=== PATIENT | male | born 1940 | race Caucasian/White ===

== ENCOUNTER 2017-01-29 13:53 | Emergency (ER) | payer MEDICARE, MEDICAID ==
[2017-01-29 14:10] VITALS: BP 128/64
--- NOTE | 2017-01-29 14:14 | EDM.PDOC ---
ED HISTORY OF PRESENT ILLNESS - General Chief Complaint: Respiratory Problem Stated Complaint: SOB Time Seen by Provider: 01/29/17 14:04 History Limitations: Reports: No limitations - History of Present Illness INITIAL COMMENTS - FREE TEXT/NARRATIVE: Pt states that he has had coughing and generalized body aches for the past 10 days. States that he is having a hard time getting the phlegm up Symptom Onset Date: 01/19/17 Timing/Duration: Reports: Getting worse Severity: moderate Location, General: Reports: chest Quality: Reports: Ache Improves with: Reports: None Worsens with: Reports: Breathing, Movement Associated Symptoms (General): Reports: cough w sputum, loss of appetite - Related Data Allergies/ADRs: Allergies Allergy/AdvReac Type Severity Reaction Status Date / Time No Known Allergies Allergy Verified 06/19/16 20:56 Home Meds: Home Meds Acetaminophen [Tylenol] 650 mg PO Q6H PRN 06/10/14 [History] Aspirin [Ecotrin] 81 mg PO DAILY 06/10/14 [History] Calcium Citrate [Calcitrate (190 MG Calcium)] 1,900 mg PO DAILY 06/22/16 [ History] Cholecalciferol (Vitamin D3) [Vitamin D3] 4,000 units PO DAILY 06/22/16 [History ] Gabapentin [Neurontin] 100 mg PO TID 06/22/16 [History] Polyethylene Glycol 3350 [MiraLAX] 17 gm PO DAILY 06/22/16 [History] Multivitamin with Minerals [Multiple Vitamin] 1 tab PO BEDTIME 06/25/16 [History ] Simvastatin [Zocor] 20 mg PO BEDTIME 06/25/16 [History] Thiamine [Vitamin B-1] 100 mg PO BEDTIME #30 tablet 06/25/16 [Rx] Acetaminophen/HYDROcodone [[place] 325-5 MG] 1 tab PO Q6H PRN #20 tablet 07/14/16 [Rx] Past Medical History HEENT History: Reports: Hard of hearing, Impaired vision Cardiovascular History: Reports: High cholesterol, Hypertension Respiratory History: Reports: Pneumonia, recurrent Gastrointestinal History: Reports: Fecal incontinence Genitourinary History: Reports: Urinary incontinence Musculoskeletal History: Reports: Amputation Other Musculoskeletal History: 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 - Infectious Disease History Infectious Disease History: Reports: Chicken pox, Measles, Mumps, Shingles - Past Surgical History Musculoskeletal Surgical History: Reports: Other (see below) Other Musculoskeletal Surgeries/Procedures:: left hip and ankle surgery Social & Family History - Family History Family Medical History: Noncontributory - Tobacco Use Smoking Status *Q: Heavy Tobacco Smoker Years of Tobacco use: 60 Packs/Tins Daily: 1.2 Used Tobacco, but Quit: No Second Hand Smoke Exposure: Yes - Alcohol Use Days Per Week of Alcohol Use: 7 Number of Drinks Per Day: 2 Total Drinks Per Week: 14 - Recreational Drug Use Recreational Drug Use: No ED ROS GENERAL - Review of Systems Review Of Systems: See Below Constitutional: Reports: malaise Respiratory: Reports: Shortness of Breath, Cough ED EXAM, GENERAL - Physical Exam Exam: See Below Exam Limited By: No limitations General Appearance: alert, WD/WN, no apparent distress Eye Exam: bilateral eye: PERRL Nose: no blood, clear rhinorrhea, other (enlarged turbinated bilaterally) Throat/Mouth: Normal inspection, Normal lips, Normal teeth, Normal gums, Normal voice, No airway compromise, Other (throat erythema) Head: atraumatic, normocephalic Neck: normal inspection, supple, non-tender, full range of motion Respiratory/Chest: lungs clear, normal breath sounds, no accessory muscle use, chest non-tender, decreased breath sounds, other (labored breathing) Cardiovascular: normal peripheral pulses, regular rate, rhythm, no edema, no gallop, no JVD, no murmur, no rub Neurological: alert, oriented, CN II-XII intact, normal cognition, normal gait, normal reflexes, no motor/sensory deficits Course - Vital Signs Last Recorded V/S: Last Vital Signs Temp 96.3 F 01/29/17 14:09 Pulse 96 01/29/17 14:34 Resp 22 H 01/29/17 14:09 BP 128/64 01/29/17 14:09 Pulse Ox 94 L 01/29/17 14:34 - Orders/Labs/Meds Orders: Active Orders 24 hr Category Date Time Status RT Aerosol Therapy [RC] ASDIRECTED Care 01/29/17 14:24 Active Meds: Medications Discontinued Medications Generic Name Dose Route Start Last Admin Trade Name Freq PRN Reason Stop Dose Admin Albuterol/Ipratropium 3 ml 01/29/17 14:23 01/29/17 14:33 Duoneb 3.0-0.5 Mg/3 Ml NEB 01/29/17 14:24 3 ml ONETIME ONE Administration Amoxicillin 500 mg 01/29/17 15:20 01/29/17 15:29 Amoxil PO 01/29/17 15:21 500 mg ONETIME ONE Administration - Re-Assessments/Exams Free Text/Narrative Re-Assessment/Exam: 01/29/17 15:32 Strep positive and CXR reveals reactive airway disease, will start amoxicillin and send home with albuterol and cough suppressants. Departure - Departure Time of Disposition: 15:32 Disposition: Home, Self-Care 01 Preliminary Cause of *Q: sepsis & multi system organ failure Condition: good Clinical Impression: Strep pharyngitis, Bronchitis Instructions: Acute Bronchitis, [id number], Strep Throat Forms: ED Department Discharge Additional Instructions: Take medication as prescribed. Stop taking if any adverse effects occur. Follow up at [place] [facility] or [facility] as needed - My Orders Last 24 Hours: My Active Orders 01/29/17 14:24 RT Aerosol Therapy [RC] ASDIRECTED - Assessment/Plan Last 24 Hours: My Active Orders 01/29/17 14:24 RT Aerosol Therapy [RC] ASDIRECTED
[2017-01-29] MEDS ORDERED: Albuterol/Ipratropium 3.0-0.5 MG/3 ML Neb Soln NEB ONE (14:23)
--- NOTE | 2017-01-29 15:15 | CR ---
Clinical history: 76-year-old male shortness of breath. Interpretation: Abnormal. 1. Insufficiency fracture with collapse mid thoracic vertebral body. 2. Patchy nonconsolidative infrahilar infiltrates involving the anterior segments, both lower lobes. 3. Similar subtle asymmetric density axillary segment right upper lobe. 4. Peribronchial "cuffing" and generalized air trapping typical reactive airway disease. No lung mas s, hilar lymphadenopathy or other focal lobar infiltrate/atelectasis. 5. Normal cardiac silhouette without cephalization of vascular flow, signs of alveolar edema or depe ndent pleural effusion. Left-sided aortic arch. 6. No pneumothorax.
[2017-01-29] MEDS ORDERED: Amoxicillin 500 MG Cap PO ONE (15:20)
== END 2017-01-29 15:43 | disposition home or self-care (01) ==
LOC: DL.ED 13:53
DX: J40 Bronchitis, not specified as acute or chronic (principal); J02.0 Streptococcal pharyngitis; E78.00 Pure hypercholesterolemia, unspecified; I10 Essential (primary) hypertension; F17.210 Nicotine dependence, cigarettes, uncomplicated; Z87.01 Personal history of pneumonia (recurrent); Z79.82 Long term (current) use of aspirin; Z79.899 Other long term (current) drug therapy
CPT/HCPCS: 71020; 87430; 87804; 94640; 99285; A9270; 99284

== ENCOUNTER 2020-06-08 20:16 | Observation (INO) | payer OTHER, MEDICARE, MEDICAID ==
--- NOTE | 2020-06-08 20:56 | EDM.PDOC ---
ED HPI GENERAL MEDICAL PROBLEM - General Chief Complaint: General Stated Complaint: AMBULANCE Time Seen by Provider: 06/08/20 20:45 Source of Information: Reports: Patient History Limitations: Reports: No Limitations - History of Present Illness INITIAL COMMENTS - FREE TEXT/NARRATIVE: This 79 yo male patient was brought to the ED by [facility] due to left hip and pelvic pain. The patient reports he fell on Tuesday (06/04/20) onto his left hip on a tile floor. The patient reports he was able to get into his recliner after the fall, but has not been able to move since that time. The patient reports continued pain with movement in his left hip and left groin. The patient reports no loss of consciousness before, during or after the fall. The patient denies hitting his head during the incident. Onset Date: 06/04/20 Duration: Constant Location: Reports: Pelvis, Lower Extremity, Left Quality: Reports: Ache Severity: Moderate Improves with: Reports: None Worsens with: Reports: None Context: Reports: Trauma (ground level fall) Associated Symptoms: Reports: No Other Symptoms Left Hip Pain Score (Numeric/FACES): 7 - Related Data Allergies Allergy/AdvReac Type Severity Reaction Status Date / Time No Known Allergies Allergy Verified 06/08/20 20:33 Home Meds: Home Meds Acetaminophen [Tylenol] 650 mg PO Q6H PRN 06/10/14 [History] Aspirin [Ecotrin EC] 81 mg PO DAILY 06/10/14 [History] Cholecalciferol (Vitamin D3) [Vitamin D3] 4,000 units PO DAILY 06/22/16 [History] Gabapentin [Neurontin] 600 mg PO DAILY 06/22/16 [History] Acetaminophen/HYDROcodone [[place] 325-5 MG] 1 tab PO Q6H PRN #20 tablet 07/14/16 [Rx] Budesonide/Formoterol Fumarate [Symbicort 160-4.5 Mcg Inhaler] 2 puff INH Q12H 06/08/20 [History] NIFEdipine [Nifedipine ER] 60 mg PO DAILY 06/08/20 [History] Sennosides/Docusate Sodium [Senna-S] 1 each PO BID 06/08/20 [History] atorvaSTATin [Lipitor] 20 mg PO DAILY 06/08/20 [History] guaiFENesin [Guaifenesin] 200 mg PO TID PRN 06/08/20 [History] Past Medical History HEENT History: Reports: Hard of Hearing, Impaired Vision Cardiovascular History: Reports: High Cholesterol, Hypertension Respiratory History: Reports: Pneumonia, Recurrent Gastrointestinal History: Reports: Fecal Incontinence Genitourinary History: Reports: Urinary Incontinence Musculoskeletal History: Reports: Amputation Other Musculoskeletal History: 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 ED EXAM, GENERAL - Physical Exam Exam: See Below Exam Limited By: No Limitations General Appearance: Alert, WD/WN, Moderate Distress, Thin Eye Exam: Bilateral Eye: EOMI, Normal Inspection, PERRL Ears: Normal External Exam, Normal Canal, Hearing Grossly Normal, Normal TMs, Other (hearing aid in right ear) Nose: Normal Inspection, Normal Mucosa, No Blood Throat/Mouth: Normal Inspection, Normal Lips, Normal Teeth, Normal Gums, Normal Oropharynx, Normal Voice, No Airway Compromise Head: Atraumatic, Normocephalic Neck: Normal Inspection, Supple, Non-Tender, Full Range of Motion Respiratory/Chest: No Respiratory Distress, Lungs Clear, Normal Breath Sounds, No Accessory Muscle Use, Chest Non-Tender Cardiovascular: Normal Peripheral Pulses, Regular Rate, Rhythm, No Edema, No Gallop, No JVD, No Murmur, No Rub GI/Abdominal: Normal Bowel Sounds, Soft, Non-Tender, No Organomegaly, No Distention, No Abnormal Bruit, No Mass (Male) Exam: Deferred Rectal (Males) Exam: Deferred Back Exam: Normal Inspection, Full Range of Motion, NT Extremities: Leg Pain (left hip pain with gentle palpation or movement) Neurological: Alert, Oriented, Abnormal Gait (due to left hip and pelvic pain). No: Normal Gait Psychiatric: Normal Affect, Normal Mood Skin Exam: Warm, Dry, Intact, Normal Color, No Rash Lymphatic: No Adenopathy Course - Vital Signs Last Recorded V/S: Last Vital Signs Temp 36.9 C 06/08/20 20:29 Pulse 103 H 06/08/20 20:29 Resp 20 06/08/20 20:29 BP 160/63 H 06/08/20 20:29 Pulse Ox 97 06/08/20 20:29 - Orders/Labs/Meds Labs: Laboratory Tests 06/08/20 06/08/20 Range/Units 20:39 20:39 WBC 9.8 (5.0-10.0) 10^3/uL RBC 4.24 L (4.6-6.2) 10^6/uL Hgb 14.1 D (14.0-18.0) g/dL Hct 41.5 (40.0-54.0) % MCV 97.9 (80-100) fL MCH 33.3 (27.0-34.0) pg MCHC 34.0 (33.0-35.0) g/dL Plt Count 253 D (150-450) 10^3/uL Neut % (Auto) 77.8 H (42.2-75.2) % Lymph % (Auto) 11.5 L (20.5-50.1) % [place] % (Auto) 10.3 H (2-8) % Eos % (Auto) 0.3 L (1.0-3.0) % Baso % (Auto) 0.1 (0.0-1.0) % Sodium 135 L (136-145) mmol/L Potassium 4.2 (3.5-5.1) mmol/L Chloride 99 (98-107) mmol/L Carbon Dioxide 25 (21-32) mmol/L Anion Gap 15.2 H (7-13) mEq/L BUN 21 H (7-18) mg/dL Creatinine 0.90 (0.70-1.30) mg/dL Est Cr Clr Drug Dosing TNP Estimated GFR (MDRD) > 60 BUN/Creatinine Ratio 23.3 (No establ ref range) Glucose 100 H (74-99) mg/dL Calcium 9.1 (8.5-10.1) mg/dL Total Bilirubin 0.7 (0.2-1.0) mg/dL AST 20 (15-37) U/L ALT 21 (16-63) U/L Alkaline Phosphatase 185 H (46-116) U/L Total Protein 7.9 (6.4-8.2) g/dL Albumin 3.2 L (3.4-5.0) g/dL Globulin 4.7 Albumin/Globulin Ratio 0.68 Departure - Departure Time of Disposition: 22:30 Disposition: Refer to Observation Condition: Fair Clinical Impression: Pelvic fracture Qualifiers: Encounter type: initial encounter Pelvic bone location: acetabulum Sublocation of acetabulum: anterior wall Fracture type: closed Fracture alignment: displaced Laterality: left Qualified Code(s): S32.412A - Displaced fracture of anterior wall of left acetabulum, initial encounter for closed fracture - Discharge Information *PRESCRIPTION DRUG MONITORING PROGRAM REVIEWED*: Not Applicable *COPY OF PRESCRIPTION DRUG MONITORING REPORT IN PATIENT EDDIE: Not Applicable Care Plan Goals: Discussed the patient's history, examination, x-ray and CT results with Dr. Wade. Dr. Wade accepted the patient for observation and pain management. A consult was done with Dr. Patterson ([facility]) during the ED visit. Dr. Patterson would like to speak with Dr. Wade in the morning regarding the patient's continued care. Sepsis Event Note (ED) - Evaluation Sepsis Screening Result: No Definite Risk - Focused Exam Vital Signs: Vital Signs Temp Pulse Resp BP Pulse Ox 06/08/20 20:29 36.9 C 103 H 20 160/63 H 97
[2020-06-08 21:11] LABS: ANION GAP 15.2 mEq/L (7-13); CHLORIDE,CL 99 mmol/L (98-107); SODIUM,NA 135 mmol/L (136-145)
--- NOTE | 2020-06-08 21:24 | CR ---
PROCEDURE INFORMATION: Exam: XR Left Hip with Pelvis when Performed Exam date and time: 06/08/2020 9:09 PM Age: 79 years old Clinical indication: Other: Fell on tile floor Tuesday--pain since; Additional info: Left hip pain TECHNIQUE: Imaging protocol: XR Left hip with pelvis when performed. Views: 2 or 3 views. COMPARISON: No relevant prior studies available. FINDINGS: Bones/joints: Old fractures of the right superior and inferior pubic rami. No acute fracture. No dislocation. Mild degenerative changes at both the right and left hips. Multilevel degenerative changes of varying severity in the visualized spine. Bones are diffusely osteopenic. Soft tissues: No soft tissue swelling. No radiopaque foreign body. Vasculature: Atherosclerotic changes in the visualized arteries. IMPRESSION: 1. No acute fracture. MRI would be recommended if clinical concern for fracture persists. 2. Old fractures of the right superior and inferior pubic rami. 3. Mild degenerative changes at both the right and left hips. 4. Multilevel degenerative changes of varying severity in the visualized spine. 5. Incidental/nonacute findings are listed in the report.
--- NOTE | 2020-06-08 22:07 | CT ---
PROCEDURE INFORMATION: Exam: CT Pelvis Without Contrast; Skeletal Exam date and time: 06/08/2020 9:49 PM Age: 79 years old Clinical indication: Other: Fall; Additional info: Left hip/pelvic pain TECHNIQUE: Imaging protocol: Computed tomography images of the pelvis without contrast. Exam focused on the skeletal structures. Sagittal and coronal reformatted images were created and reviewed. Radiation optimization: All CT scans at this facility use at least one of these dose optimization techniques: automated exposure control; mA and/or kV adjustment per patient size (includes targeted exams where dose is matched to clinical indication); or iterative reconstruction. COMPARISON: CR Hip Min 2V or 3V w Pelvis Lt 06/08/2020 9:09 PM FINDINGS: Stomach and bowel: Numerous diverticula in the sigmoid colon. No evidence for diverticulitis. Bladder: Diffuse, mild wall thickening of the bladder. Reproductive: Small bilateral hydroceles. Vasculature: Extensive atherosclerotic changes in the visualized arteries. Bones/joints: Bones are diffusely osteopenic. Mild degenerative changes at both the right and left hips. Mild degenerative changes of the right and left sacroiliac joints. Moderate to severe multilevel degenerative changes in the visualized spine. Moderate spinal canal stenosis at L4-L5. Multilevel foraminal stenosis of varying severity in the lower lumbar spine. Old, healed fractures of the right superior and inferior pubic rami. Mildly comminuted and minimally displaced fracture of the lateral aspect of the left superior pubic ramus extending anteriorly to the anterior wall of the right acetabulum (series 2, images 52-60). Mildly comminuted and displaced fracture of the left inferior pubic ramus (series 2, images 69-76). Acute, nondisplaced fracture of the left sacral ala (series 4, images 40-45). Soft tissues: No soft tissue swelling. No radiopaque foreign body. IMPRESSION: 1. Mildly comminuted and minimally displaced fracture of the lateral aspect of the left superior pubic ramus extending anteriorly to the anterior wall of the right acetabulum. 2. Mildly comminuted and displaced fracture of the left inferior pubic ramus. 3. Acute, nondisplaced fracture of the left sacral ala. 4. Mild degenerative changes at both the right and left hips. 5. Mild degenerative changes of the right and left sacroiliac joints. 6. Moderate to severe multilevel degenerative changes in the visualized spine. Moderate spinal canal stenosis at L4-L5. Multilevel foraminal stenosis of varying severity in the lower lumbar spine. 7. Old, healed fractures of the right superior and inferior pubic rami. 8. Diffuse, mild wall thickening of the bladder. In the correct clinical setting, this may suggest cystitis. Recommend correlation with laboratory findings. Alternatively, this may be secondary to chronic outlet obstruction. 9. Incidental/nonacute findings are listed in the report.
[2020-06-08] MEDS ORDERED: fentaNYL 100 MCG/2 ML SDV IVPUSH PRN (23:04)
[2020-06-08] MEDS ORDERED: Sodium Chloride 0.9% 10 ML Syringe FLUSH PRN (23:05)
[2020-06-08] MEDS ORDERED: Ondansetron 4 MG/2 ML SDV IVPUSH PRN (23:05)
--- NOTE | 2020-06-08 23:25 | PCM.HP ---
H&P History of Present Illness - General Date of Service: 06/08/20 Admit Problem/Dx: Admission Diagnosis/Problem Admission Diagnosis/Problem Fracture of acetabulum Source of Information: Patient - History of Present Illness Initial Comments - Free Text/Narative: 79-year-old with a history of COPD, hypertension. The patient has been living with the family, he lives in the basement. Has had problem with ambulation, weak legs. Has fallen in the past. The patient fell last Tuesday. Since then has been reporting left-sided the pelvic area pain. The pain is moderate, worse with activity and cough. No associated chest pain, abdominal pain. No leg swelling. Has chronic shortness of breath. Left Hip Pain Score (Numeric/FACES): 7 - Related Data Allergies/Adverse Reactions: Allergies Allergy/AdvReac Type Severity Reaction Status Date / Time No Known Allergies Allergy Verified 06/08/20 20:33 Home Medications: Home Meds Acetaminophen [Tylenol] 650 mg PO Q6H PRN 06/10/14 [History] Aspirin [Ecotrin EC] 81 mg PO DAILY 06/10/14 [History] Cholecalciferol (Vitamin D3) [Vitamin D3] 4,000 units PO DAILY 06/22/16 [History] Gabapentin [Neurontin] 600 mg PO DAILY 06/22/16 [History] Acetaminophen/HYDROcodone [[place] 325-5 MG] 1 tab PO Q6H PRN #20 tablet 07/14/16 [Rx] Budesonide/Formoterol Fumarate [Symbicort 160-4.5 Mcg Inhaler] 2 puff INH Q12H 06/08/20 [History] NIFEdipine [Nifedipine ER] 60 mg PO DAILY 06/08/20 [History] Sennosides/Docusate Sodium [Senna-S] 1 each PO BID 06/08/20 [History] atorvaSTATin [Lipitor] 20 mg PO DAILY 06/08/20 [History] guaiFENesin [Guaifenesin] 200 mg PO TID PRN 06/08/20 [History] Past Medical History HEENT History: Reports: Hard of Hearing, Impaired Vision Cardiovascular History: Reports: High Cholesterol, Hypertension Respiratory History: Reports: Pneumonia, Recurrent Gastrointestinal History: Reports: Fecal Incontinence Genitourinary History: Reports: Urinary Incontinence Musculoskeletal History: Reports: Amputation Other Musculoskeletal History: 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 - Infectious Disease History Infectious Disease History: Reports: Chicken Pox, Measles, Mumps, Shingles - Past Surgical History Musculoskeletal Surgical History: Reports: Other (See Below) Social & Family History - Family History Family Medical History: Noncontributory - Tobacco Use Smoking Status *Q: Heavy Tobacco Smoker Years of Tobacco use: 60 Packs/Tins Daily: 0.8 - Caffeine Use Caffeine Use: Reports: Coffee, Soda, Tea - Recreational Drug Use Recreational Drug Use: No H&P Review of Systems - Review of Systems: Review Of Systems: See Below General: Denies: Fever Pulmonary: Reports: Shortness of Breath (Chronic) Cardiovascular: Denies: Chest Pain Gastrointestinal: Denies: Abdominal Pain Psychiatric: Denies: Confusion Neurological: Denies: Dizziness Exam - Exam Exam: See Below - Vital Signs Vital Signs: Last Vital Signs Temp 99.1 F 06/08/20 22:52 Pulse 92 06/08/20 22:52 Resp 18 06/08/20 22:52 BP 169/85 H 06/08/20 22:52 Pulse Ox 99 06/08/20 22:52 Weight: 103 lb 8 oz - Exam General: Alert, Oriented Neck: Supple Lungs: Normal Respiratory Effort, Decreased Breath Sounds. No: Rales, Wheezing Cardiovascular: Regular Rate, Regular Rhythm GI/Abdominal Exam: Normal Bowel Sounds, Soft, Non-Tender Extremities: No Pedal Edema, Other (Pain in the left hip area on pressure) Skin: Warm, Dry Neuro Extensive - Mental Status: Alert, Oriented x3 Psychiatric: Alert, Normal Affect, Normal Mood - Patient Data Lab Results Last 24 hrs: Laboratory Results - last 24 hr 06/08/20 06/08/20 Range/Units 20:39 20:39 WBC 9.8 (5.0-10.0) 10^3/uL RBC 4.24 L (4.6-6.2) 10^6/uL Hgb 14.1 D (14.0-18.0) g/dL Hct 41.5 (40.0-54.0) % MCV 97.9 (80-100) fL MCH 33.3 (27.0-34.0) pg MCHC 34.0 (33.0-35.0) g/dL Plt Count 253 D (150-450) 10^3/uL Neut % (Auto) 77.8 H (42.2-75.2) % Lymph % (Auto) 11.5 L (20.5-50.1) % [place] % (Auto) 10.3 H (2-8) % Eos % (Auto) 0.3 L (1.0-3.0) % Baso % (Auto) 0.1 (0.0-1.0) % Sodium 135 L (136-145) mmol/L Potassium 4.2 (3.5-5.1) mmol/L Chloride 99 (98-107) mmol/L Carbon Dioxide 25 (21-32) mmol/L Anion Gap 15.2 H (7-13) mEq/L BUN 21 H (7-18) mg/dL Creatinine 0.90 (0.70-1.30) mg/dL Est Cr Clr Drug Dosing TNP Estimated GFR (MDRD) > 60 BUN/Creatinine Ratio 23.3 (No establ ref range) Glucose 100 H (74-99) mg/dL Calcium 9.1 (8.5-10.1) mg/dL Total Bilirubin 0.7 (0.2-1.0) mg/dL AST 20 (15-37) U/L ALT 21 (16-63) U/L Alkaline Phosphatase 185 H (46-116) U/L Total Protein 7.9 (6.4-8.2) g/dL Albumin 3.2 L (3.4-5.0) g/dL Globulin 4.7 Albumin/Globulin Ratio 0.68 Result Diagrams: 06/08/20 20:39 06/08/20 20:39 - Problem List (1) COPD (chronic obstructive pulmonary disease) SNOMED Code(s): 40631323 ICD Code: J44.9 - CHRONIC OBSTRUCTIVE PULMONARY DISEASE, UNSPECIFIED Status: Acute Current Visit: Yes (2) Fracture, pelvis closed SNOMED Code(s): 52035429 ICD Code: S32.9XXA - FRACTURE OF UNSP PARTS OF LUMBOSACRAL SPINE AND PELVIS, INIT Status: Acute Priority: Medium Current Visit: No Qualifiers: Encounter type: initial encounter Pelvic bone location: pubis Sublocation of pubis: superior rim Laterality: right Qualified Code(s): S32.511A - Fracture of superior rim of right pubis, initial encounter for closed fracture (3) Hypertension SNOMED Code(s): 10205190 ICD Code: I10 - ESSENTIAL (PRIMARY) HYPERTENSION Status: Acute Current Visit: No Qualifiers: Hypertension type: essential hypertension Qualified Code(s): I10 - Essential (primary) hypertension Problem List Initiated/Reviewed/Updated: Yes Orders Last 24hrs: Active Orders 24 hr Category Date Time Status Admission Diagnosis [ADT] Urgent ADT 06/08/20 22:33 Ordered Admission Status [Patient Status] [ADT] Routine ADT 06/08/20 22:33 Active Antiembolic Devices [RC] PER UNIT ROUTINE Care 06/08/20 23:06 Ordered Oxygen Therapy [RC] PRN Care 06/08/20 23:05 Ordered Peripheral IV Care [RC] . DIRECTED Care 06/08/20 23:06 Ordered Up With Assistance [RC] ASDIRECTED Care 06/08/20 23:05 Ordered VTE/DVT Education [RC] PER UNIT ROUTINE Care 06/08/20 23:05 Ordered Vital Signs [RC] Q4H Care 06/08/20 23:05 Ordered OT Evaluation and Treatment [CONS] Routine Cons 06/08/20 23:05 Ordered PT Evaluation and Treatment [CONS] Routine Cons 06/08/20 23:05 Ordered Regular Diet [DIET] Diet 06/08/20 Breakfast Ordered Acetaminophen [Tylenol] Med 06/08/20 23:02 Ordered 650 mg PO Q6H PRN Acetaminophen/HYDROcodone [[place] 325-5 MG] Med 06/08/20 23:02 Ordered 1 tab PO Q6H PRN Aspirin [Halfprin] Med 06/09/20 09:00 Ordered 81 mg PO DAILY Budesonide/Formoterol Fumarate Med 06/08/20 23:15 Ordered 2 puff INH Q12H Docusate Sodium/Sennosides [Senna Plus] Med 06/09/20 09:00 Ordered 1 each PO BID Gabapentin [Neurontin] Med 06/09/20 09:00 Ordered 600 mg PO DAILY Heparin Sodium Med 06/09/20 06:00 Ordered 5,000 units SUBCUT Q8HR NIFEdipine [Nifedipine ER] Med 06/09/20 09:00 Ordered 60 mg PO DAILY Ondansetron [Zofran] Med 06/08/20 23:05 Ordered 4 mg IVPUSH Q6H PRN Sodium Chloride 0.9% [Saline Flush] Med 06/08/20 23:05 Ordered 10 ml FLUSH ASDIRECTED PRN Zolpidem [Ambien] Med 06/08/20 23:05 Ordered 5 mg PO BEDTIME PRN atorvaSTATin [Lipitor] Med 06/09/20 21:00 Ordered 20 mg PO BEDTIME fentaNYL [Sublimaze] Med 06/08/20 23:04 Ordered 25 mcg IVPUSH Q2H PRN Antiembolic Hose [OM.PC] Per Unit Routine Oth 06/08/20 23:05 Ordered Peripheral IV Insertion Adult [OM.PC] Routine Oth 06/08/20 23:05 Ordered Saline Lock Insert [OM.PC] Routine Oth 06/08/20 23:05 Ordered Resuscitation Status Routine Resus Stat 06/08/20 23:16 Ordered Medication Orders Acetaminophen (Tylenol) 650 mg PO Q6H PRN PRN Reason: mild pain Hydrocodone Bitart/Acetaminophen ([place] 325-5 Mg) 1 tab PO Q6H PRN PRN Reason: moderate Pain Aspirin (Halfprin) 81 mg PO DAILY [facility] Atorvastatin Calcium (Lipitor) 20 mg PO BEDTIME [facility] Fentanyl (Sublimaze) 25 mcg IVPUSH Q2H PRN PRN Reason: severe pain Gabapentin (Neurontin) 600 mg PO DAILY [facility] Heparin Sodium (Porcine) (Heparin Sodium) 5,000 units SUBCUT Q8HR [facility] Nifedipine (Procardia Xl) 60 mg PO DAILY [facility] Non-Formulary Medication (Budesonide/Formoterol Fumarate) 2 puff INH Q12H [facility] Ondansetron HCl (Zofran) 4 mg IVPUSH Q6H PRN PRN Reason: Nausea/Vomiting Senna/Docusate Sodium (Senna Plus) 1 tab PO BID [facility] Sodium Chloride (Saline Flush) 10 ml FLUSH ASDIRECTED PRN PRN Reason: Keep Vein Open Zolpidem Tartrate (Ambien) 5 mg PO BEDTIME PRN PRN Reason: Sleep Assessment/Plan Comment:: 79-year-old gentleman with a history of COPD, cachexia, hypertension. Presented after a fall. Fall, closed left superior and inferior pubic ramus fracture, left sacral ala fracture We'll admit for pain control Use Tylenol for mild pain, hydrocodone for moderate pain, fentanyl IV for severe pain Consult physical and occupational therapy Orthopedic surgeon has been contacted by ER staff Will talk with orthopedic surgery tomorrow as well COPD Appears with no acute exacerbation Continue Pulmicort Hypertension Treat nifedipine DVT prophylaxis with subcutaneous heparin Discussed CODE STATUS, patient wish to be DNR, DNI.
[2020-06-08] MEDS: Formoterol/Mometasone 200-5 MCG 8.8 GM Inhaler IH SCH (23:55)
[2020-06-08] MEDS: Acetaminophen/HYDROcodone 325-5 MG Tab PO PRN (23:59)
[2020-06-09] MEDS: Zolpidem 5 MG Tab PO PRN ×2 (00:20→21:27)
[2020-06-09] MEDS: Acetaminophen/HYDROcodone 325-5 MG Tab PO PRN ×3 (05:58→19:02)
[2020-06-09] MEDS: Heparin Sodium 5,000 Units/ML Vial SUBCUT SCH ×3 (05:58→21:34)
[2020-06-09] MEDS: Gabapentin 300 MG Cap PO SCH (09:35)
[2020-06-09] MEDS: NIFEdipine 30 MG Tab.ER PO SCH (09:35)
[2020-06-09] MEDS: Aspirin 81 MG Tab.EC PO SCH (09:35)
[2020-06-09] MEDS: Acetaminophen 325 MG Tab PO PRN ×2 (10:12→21:30)
[2020-06-09] MEDS: Lactulose Soln 10 GM/15 ML 30 ML UD Cup PO SCH (12:20)
[2020-06-09] MEDS: Formoterol/Mometasone 200-5 MCG 8.8 GM Inhaler IH SCH ×2 (12:21→22:28)
[2020-06-09] MEDS ORDERED: Albuterol/Ipratropium 3.0-0.5 MG/3 ML Neb Soln NEB PRN (12:22)
--- NOTE | 2020-06-09 12:27 | PCM.PN ---
- General Info Date of Service: 06/09/20 Subjective Update: Continues to complain of left groin, hip area pain. This started about 3 days ago when he fell. The pain is 4 out of 10 at rest and gets worse with activity to about 7 out of 10. No associated nausea or vomiting. Has constipation. No chest pain Chronic shortness of breath at baseline. No associated cough, fever. Functional Status: Reports: Other (Has poor appetite) - Patient Data Vitals - Most Recent: Last Vital Signs Temp 97.1 F 06/09/20 08:00 Pulse 85 06/09/20 08:00 Resp 18 06/09/20 08:00 BP 137/82 06/09/20 09:35 Pulse Ox 96 06/09/20 08:00 Weight - Most Recent: 103 lb 8 oz I&O - Last 24 Hours: Intake & Output 06/08/20 06/09/20 06/09/20 22:59 06:59 14:59 Intake Total 120 Output Total 100 100 Balance -100 -100 120 Lab Results Last 24 Hours: Laboratory Results - last 24 hr 06/08/20 06/08/20 Range/Units 20:39 20:39 WBC 9.8 (5.0-10.0) 10^3/uL RBC 4.24 L (4.6-6.2) 10^6/uL Hgb 14.1 D (14.0-18.0) g/dL Hct 41.5 (40.0-54.0) % MCV 97.9 (80-100) fL MCH 33.3 (27.0-34.0) pg MCHC 34.0 (33.0-35.0) g/dL Plt Count 253 D (150-450) 10^3/uL Neut % (Auto) 77.8 H (42.2-75.2) % Lymph % (Auto) 11.5 L (20.5-50.1) % [place] % (Auto) 10.3 H (2-8) % Eos % (Auto) 0.3 L (1.0-3.0) % Baso % (Auto) 0.1 (0.0-1.0) % Sodium 135 L (136-145) mmol/L Potassium 4.2 (3.5-5.1) mmol/L Chloride 99 (98-107) mmol/L Carbon Dioxide 25 (21-32) mmol/L Anion Gap 15.2 H (7-13) mEq/L BUN 21 H (7-18) mg/dL Creatinine 0.90 (0.70-1.30) mg/dL Est Cr Clr Drug Dosing TNP Estimated GFR (MDRD) > 60 BUN/Creatinine Ratio 23.3 (No establ ref range) Glucose 100 H (74-99) mg/dL Calcium 9.1 (8.5-10.1) mg/dL Total Bilirubin 0.7 (0.2-1.0) mg/dL AST 20 (15-37) U/L ALT 21 (16-63) U/L Alkaline Phosphatase 185 H (46-116) U/L Total Protein 7.9 (6.4-8.2) g/dL Albumin 3.2 L (3.4-5.0) g/dL Globulin 4.7 Albumin/Globulin Ratio 0.68 Med Orders - Current: Current Medications Acetaminophen (Tylenol) 650 mg PO Q6H PRN PRN Reason: mild pain Last Admin: 06/09/20 10:12 Dose: 650 mg Documented by: Hydrocodone Bitart/Acetaminophen ([place] 325-5 Mg) 1 tab PO Q6H PRN PRN Reason: moderate Pain Last Admin: 06/09/20 05:58 Dose: 1 tab Documented by: Aspirin (Halfprin) 81 mg PO DAILY [facility] Last Admin: 06/09/20 09:35 Dose: 81 mg Documented by: Atorvastatin Calcium (Lipitor) 20 mg PO BEDTIME [facility] Fentanyl (Sublimaze) 25 mcg IVPUSH Q2H PRN PRN Reason: severe pain Gabapentin (Neurontin) 600 mg PO DAILY [facility] Last Admin: 06/09/20 09:35 Dose: 600 mg Documented by: Heparin Sodium (Porcine) (Heparin Sodium) 5,000 units SUBCUT Q8HR [facility] Last Admin: 06/09/20 05:58 Dose: 5,000 units Documented by: Lactulose (Cephulac) 20 gm PO DAILY [facility] Last Admin: 06/09/20 12:20 Dose: 20 gm Documented by: Mometasone Furoate/Formoterol Fumar (Dulera 200-5 Mcg) 0 puff IH Q12H [facility] Last Admin: 06/09/20 12:21 Dose: 2 puff Documented by: Nifedipine (Procardia Xl) 60 mg PO DAILY [facility] Last Admin: 06/09/20 09:35 Dose: 60 mg Documented by: Ondansetron HCl (Zofran) 4 mg IVPUSH Q6H PRN PRN Reason: Nausea/Vomiting Senna/Docusate Sodium (Senna Plus) 1 tab PO BID [facility] Last Admin: 06/09/20 09:35 Dose: 1 tab Documented by: Sodium Chloride (Saline Flush) 10 ml FLUSH ASDIRECTED PRN PRN Reason: Keep Vein Open Zolpidem Tartrate (Ambien) 5 mg PO BEDTIME PRN PRN Reason: Sleep Last Admin: 06/09/20 00:20 Dose: 5 mg Documented by: - Exam General: Alert, Oriented, Other (Cachectic) Neck: Supple Lungs: Clear to Auscultation, Normal Respiratory Effort Cardiovascular: Regular Rate, Regular Rhythm GI/Abdominal Exam: Normal Bowel Sounds, Soft, Non-Tender Extremities: No Pedal Edema Sepsis Event Note - Evaluation Sepsis Screening Result: No Definite Risk - Focused Exam Vital Signs: Vital Signs Temp Pulse Resp BP BP Pulse Ox 06/09/20 09:35 137/82 06/09/20 08:00 97.1 F 85 18 137/82 96 Date Exam was Performed: 06/09/20 Time Exam was Performed: 12:23 - Problem List & Annotations (1) COPD (chronic obstructive pulmonary disease) SNOMED Code(s): 11821569 Code(s): J44.9 - CHRONIC OBSTRUCTIVE PULMONARY DISEASE, UNSPECIFIED Status: Acute Current Visit: Yes (2) Fracture, pelvis closed SNOMED Code(s): 21767534 Code(s): S32.9XXA - FRACTURE OF UNSP PARTS OF LUMBOSACRAL SPINE AND PELVIS, INIT Status: Acute Priority: Medium Current Visit: No Qualifiers: Encounter type: initial encounter Pelvic bone location: pubis Sublocation of pubis: superior rim Laterality: right Qualified Code(s): S32.511A - Fracture of superior rim of right pubis, initial encounter for closed fracture (3) Hypertension SNOMED Code(s): 14373635 Code(s): I10 - ESSENTIAL (PRIMARY) HYPERTENSION Status: Acute Current Visit: No Qualifiers: Hypertension type: essential hypertension Qualified Code(s): I10 - Essential (primary) hypertension - Problem List Review Problem List Initiated/Reviewed/Updated: Yes - My Orders Last 24 Hours: My Active Orders 06/08/20 23:02 Acetaminophen [Tylenol] 650 mg PO Q6H PRN Acetaminophen/HYDROcodone [[place] 325-5 MG] 1 tab PO Q6H PRN 06/08/20 23:04 fentaNYL [Sublimaze] 25 mcg IVPUSH Q2H PRN 06/08/20 23:05 Oxygen Therapy [RC] PRN Up With Assistance [RC] ASDIRECTED VTE/DVT Education [RC] PER UNIT ROUTINE Vital Signs [RC] 04,08,12,16,20,00 OT Evaluation and Treatment [CONS] Routine PT Evaluation and Treatment [CONS] Routine Ondansetron [Zofran] 4 mg IVPUSH Q6H PRN Sodium Chloride 0.9% [Saline Flush] 10 ml FLUSH ASDIRECTED PRN Zolpidem [Ambien] 5 mg PO BEDTIME PRN Antiembolic Hose [OM.PC] Per Unit Routine Peripheral IV Insertion Adult [OM.PC] Routine Saline Lock Insert [OM.PC] Routine 06/08/20 23:06 Antiembolic Devices [RC] Peripheral IV Care [RC] 06/08/20 23:15 Mometasone/Formoterol [Dulera 200-5 MCG] 0 puff IH Q12H 06/08/20 23:16 Resuscitation Status Routine 06/09/20 06:00 Heparin Sodium 5,000 units SUBCUT Q8HR 06/09/20 09:00 Aspirin [Halfprin] 81 mg PO DAILY Docusate Sodium/Sennosides [Senna Plus] 1 tab PO BID Gabapentin [Neurontin] 600 mg PO DAILY NIFEdipine [Procardia XL] 60 mg PO DAILY 06/09/20 09:05 Dietary Supplements [RC] TIDMEALS 06/09/20 11:00 Lactulose [Cephulac] 20 gm PO DAILY 06/09/20 12:22 RT Aerosol Therapy [RC] ASDIRECTED Albuterol/Ipratropium [DuoNeb 3.0-0.5 MG/3 ML] 3 ml NEB Q2H PRN 06/09/20 21:00 atorvaSTATin [Lipitor] 20 mg PO BEDTIME - Plan Plan:: 79-year-old gentleman with a history of COPD, cachexia, hypertension. Presented after a fall. Fall, closed left superior and inferior pubic ramus fracture, left sacral ala fracture Today I have reviewed the images with orthopedic surgery, Dr. Aldana in [place] at [facility]. Per his recommendation the patient needs conservative management with pain control, physical and occupational therapy. No need for surgical intervention. Use Tylenol for mild pain, hydrocodone for moderate pain, fentanyl IV for severe pain Consult physical and occupational therapy COPD Appears with no acute exacerbation Continue Pulmicort DuoNeb as needed Constipation Add lactulose Hypertension Treat nifedipine DVT prophylaxis with subcutaneous heparin Discussed CODE STATUS, patient wish to be DNR, DNI.
[2020-06-09] MEDS ORDERED: atorvaSTATin 20 MG Tab PO SCH (21:00)
[2020-06-09 23:43] VITALS: PULSE 89
[2020-06-10] MEDS: Heparin Sodium 5,000 Units/ML Vial SUBCUT SCH (05:46)
[2020-06-10] MEDS: Acetaminophen/HYDROcodone 325-5 MG Tab PO PRN (07:51)
[2020-06-10] MEDS ORDERED: Formoterol/Mometasone 200-5 MCG 8.8 GM Inhaler IH SCH (09:00)
[2020-06-10] MEDS: Gabapentin 300 MG Cap PO SCH (09:01)
[2020-06-10] MEDS: Lactulose Soln 10 GM/15 ML 30 ML UD Cup PO SCH (09:01)
[2020-06-10] MEDS: Aspirin 81 MG Tab.EC PO SCH (09:01)
[2020-06-10] MEDS: NIFEdipine 30 MG Tab.ER PO SCH (09:01)
[2020-06-10 09:05] VITALS: BP 116/82
--- NOTE | 2020-06-10 09:59 | PCM.DCSUM1 ---
Discharge Summary - Hospital Course Free Text/Narrative:: 79-year-old gentleman with a history of COPD, cachexia, hypertension. Presented after a fall. Fall, closed left superior and inferior pubic ramus fracture, left sacral ala fracture I have reviewed the images with orthopedic surgery, Dr. Aldana in [place] at [facility]. Per his recommendation the patient needs conservative management with pain control, physical and occupational therapy. No need for surgical intervention. Use Tylenol for mild pain, hydrocodone for moderate pain, fentanyl IV for severe pain will discharge to swing bed for further physical and occupational therapy COPD Appears with no acute exacerbation Continue Pulmicort DuoNeb as needed Constipation use lactulose Hypertension Treat nifedipine DVT prophylaxis with subcutaneous heparin Discussed CODE STATUS, patient wish to be DNR, DNI. Diagnosis: Stroke: No - Discharge Data Discharge Date: 06/10/20 Discharge Disposition: DC/Tfer W/I Hosp To Swing Condition: Fair - Referral to Home Health Primary Care Physician: PCP Unobtainable - Discharge Diagnosis/Problem(s) (1) COPD (chronic obstructive pulmonary disease) SNOMED Code(s): 90546745 ICD Code: J44.9 - CHRONIC OBSTRUCTIVE PULMONARY DISEASE, UNSPECIFIED Status: Acute Current Visit: Yes (2) Fracture, pelvis closed SNOMED Code(s): 95024078 ICD Code: S32.9XXA - FRACTURE OF UNSP PARTS OF LUMBOSACRAL SPINE AND PELVIS, INIT Status: Acute Priority: Medium Current Visit: No Qualifiers: Encounter type: initial encounter Pelvic bone location: pubis Sublocation of pubis: superior rim Laterality: right Qualified Code(s): S32.511A - Fracture of superior rim of right pubis, initial encounter for closed fracture (3) Hypertension SNOMED Code(s): 68297199 ICD Code: I10 - ESSENTIAL (PRIMARY) HYPERTENSION Status: Acute Current Visit: No Qualifiers: Hypertension type: essential hypertension Qualified Code(s): I10 - Essential (primary) hypertension - Patient Summary/Data Consults: Consultations 06/08/20 23:05 OT Evaluation and Treatment [CONS] Routine PT Evaluation and Treatment [CONS] Routine - Patient Instructions Diet: Heart Healthy Diet Activity: As Tolerated - Discharge Plan *PRESCRIPTION DRUG MONITORING PROGRAM REVIEWED*: Not Applicable *COPY OF PRESCRIPTION DRUG MONITORING REPORT IN PATIENT EDDIE: Not Applicable Home Medications: Home Meds Acetaminophen [Tylenol] 650 mg PO Q6H PRN 06/10/14 [History] Aspirin [Ecotrin EC] 81 mg PO DAILY 06/10/14 [History] Cholecalciferol (Vitamin D3) [Vitamin D3] 4,000 units PO DAILY 06/22/16 [History] Gabapentin [Neurontin] 600 mg PO DAILY 06/22/16 [History] Acetaminophen/HYDROcodone [[place] 325-5 MG] 1 tab PO Q6H PRN #20 tablet 07/14/16 [Rx] Budesonide/Formoterol Fumarate [Symbicort 160-4.5 Mcg Inhaler] 2 puff INH Q12H 06/08/20 [History] NIFEdipine [Nifedipine ER] 60 mg PO DAILY 06/08/20 [History] Sennosides/Docusate Sodium [Senna-S] 1 each PO BID 06/08/20 [History] atorvaSTATin [Lipitor] 20 mg PO DAILY 06/08/20 [History] guaiFENesin [Guaifenesin] 200 mg PO TID PRN 06/08/20 [History] Oxygen Therapy Mode: Room Air - Discharge Summary/Plan Comment DC Time >30 min.: No - General Info Date of Service: 06/10/20 Admission Dx/Problem (Free Text: Admission Diagnosis/Problem Admission Diagnosis/Problem Fracture of pelvis Subjective Update: Continues to complain of left groin, hip area pain. This started when he fell. The pain is 3-4 out of 10 at rest and gets worse with activity to about 7 out of 10. tolerating pt/ot No associated nausea or vomiting. Has constipation. No chest pain Chronic shortness of breath at baseline. No associated cough, fever. - Review of Systems General: Reports: Weakness Pulmonary: Reports: Shortness of Breath (chronic) Cardiovascular: Denies: Chest Pain, Edema Neurological: Denies: Confusion - Patient Data Vitals - Most Recent: Last Vital Signs Temp 98.3 F 06/10/20 07:57 Pulse 89 06/10/20 07:57 Resp 20 06/10/20 07:57 BP 116/82 06/10/20 09:01 Pulse Ox 97 06/10/20 07:57 Weight - Most Recent: 101 lb 1.6 oz I&O - Last 24 hours: Intake & Output 06/09/20 06/10/20 06/10/20 22:59 06:59 14:59 Intake Total 685 Output Total 250 225 Balance 435 -225 Med Orders - Current: Current Medications Acetaminophen (Tylenol) 650 mg PO Q6H PRN PRN Reason: mild pain Last Admin: 06/09/20 21:30 Dose: 650 mg Documented by: Hydrocodone Bitart/Acetaminophen ([place] 325-5 Mg) 1 tab PO Q6H PRN PRN Reason: moderate Pain Last Admin: 06/10/20 07:51 Dose: 1 tab Documented by: Albuterol/Ipratropium (Duoneb 3.0-0.5 Mg/3 Ml) 3 ml NEB Q2H PRN PRN Reason: sob Aspirin (Halfprin) 81 mg PO DAILY [facility] Last Admin: 06/10/20 09:01 Dose: 81 mg Documented by: Atorvastatin Calcium (Lipitor) 20 mg PO BEDTIME [facility] Last Admin: 06/09/20 21:26 Dose: 20 mg Documented by: Fentanyl (Sublimaze) 25 mcg IVPUSH Q2H PRN PRN Reason: severe pain Last Admin: 06/09/20 15:20 Dose: 25 mcg Documented by: Gabapentin (Neurontin) 600 mg PO DAILY [facility] Last Admin: 06/10/20 09:01 Dose: 600 mg Documented by: Heparin Sodium (Porcine) (Heparin Sodium) 5,000 units SUBCUT Q8HR [facility] Last Admin: 06/10/20 05:46 Dose: 5,000 units Documented by: Lactulose (Cephulac) 20 gm PO DAILY [facility] Last Admin: 06/10/20 09:01 Dose: Not Given Documented by: Mometasone Furoate/Formoterol Fumar (Dulera 200-5 Mcg) 0 puff IH 0900,2100 [facility] Last Admin: 06/10/20 09:01 Dose: 2 puff Documented by: Nifedipine (Procardia Xl) 60 mg PO DAILY [facility] Last Admin: 06/10/20 09:01 Dose: 60 mg Documented by: Ondansetron HCl (Zofran) 4 mg IVPUSH Q6H PRN PRN Reason: Nausea/Vomiting Senna/Docusate Sodium (Senna Plus) 1 tab PO BID [facility] Last Admin: 06/10/20 09:01 Dose: 1 tab Documented by: Sodium Chloride (Saline Flush) 10 ml FLUSH ASDIRECTED PRN PRN Reason: Keep Vein Open Last Admin: 06/09/20 22:30 Dose: 10 ml Documented by: Zolpidem Tartrate (Ambien) 5 mg PO BEDTIME PRN PRN Reason: Sleep Last Admin: 06/09/20 21:27 Dose: 5 mg Documented by: Discontinued Medications Mometasone Furoate/Formoterol Fumar (Dulera 200-5 Mcg) 0 puff IH Q12H [facility] Last Admin: 06/09/20 22:28 Dose: 2 puff Documented by: - Exam General: Reports: Alert, Oriented Neck: Reports: Supple Lungs: Reports: Clear to Auscultation, Normal Respiratory Effort, Decreased Breath Sounds Cardiovascular: Reports: Regular Rate, Regular Rhythm GI/Abdominal Exam: Normal Bowel Sounds, Soft, Non-Tender Extremities: No Pedal Edema
== END 2020-06-10 11:32 | disposition swing bed (61) ==
LOC: DL.ED 20:16 → DL.MS 22:33 → DL.ED 22:38
PROVIDERS: ADMIT Internal Medicine; ATTEND Internal Medicine
DX: S32.511A Fracture of superior rim of right pubis, initial encounter for closed fracture (principal); K59.00 Constipation, unspecified; I10 Essential (primary) hypertension; E78.00 Pure hypercholesterolemia, unspecified; R64 Cachexia; F17.210 Nicotine dependence, cigarettes, uncomplicated; J44.9 Chronic obstructive pulmonary disease, unspecified; Z79.82 Long term (current) use of aspirin; Z68.1 Body mass index [BMI] 19.9 or less, adult; Z79.899 Other long term (current) drug therapy; W19.XXXA Unspecified fall, initial encounter
CPT/HCPCS: 36415; 72192; 73502; 80053; 85025; 96372; 97162; 97166; 99285; A9270; G0378; J1644; J3010; 99284

== ENCOUNTER 2020-06-10 10:49 | Inpatient (IN) | payer MEDICARE, MEDICAID ==
[2020-06-10] MEDS ORDERED: Acetaminophen 325 MG Tab PO PRN (10:55)
[2020-06-10] MEDS ORDERED: Ondansetron 4 MG/2 ML SDV IVPUSH PRN (10:55)
[2020-06-10] MEDS ORDERED: Albuterol/Ipratropium 3.0-0.5 MG/3 ML Neb Soln NEB PRN (10:55)
[2020-06-10] MEDS ORDERED: Sodium Chloride 0.9% 10 ML Syringe FLUSH PRN (10:55)
--- NOTE | 2020-06-10 11:02 | PCM.HP ---
H&P History of Present Illness - General Date of Service: 06/10/20 Admit Problem/Dx: Admission Diagnosis/Problem Admission Diagnosis/Problem Weakness Source of Information: Patient History Limitations: Reports: No Limitations - History of Present Illness Initial Comments - Free Text/Narative: 79-year-old gentleman with a history of COPD, cachexia, hypertension. Presented after a fall. We will be transferred to swing bed for further physical and occupational therapy, Pain control - Related Data Allergies/Adverse Reactions: Allergies Allergy/AdvReac Type Severity Reaction Status Date / Time No Known Allergies Allergy Verified 06/08/20 20:33 Home Medications: Home Meds Acetaminophen [Tylenol] 650 mg PO Q6H PRN 06/10/14 [History] Aspirin [Ecotrin EC] 81 mg PO DAILY 06/10/14 [History] Cholecalciferol (Vitamin D3) [Vitamin D3] 4,000 units PO DAILY 06/22/16 [History] Gabapentin [Neurontin] 600 mg PO DAILY 06/22/16 [History] Acetaminophen/HYDROcodone [Apex 325-5 MG] 1 tab PO Q6H PRN #20 tablet 07/14/16 [Rx] Budesonide/Formoterol Fumarate [Symbicort 160-4.5 Mcg Inhaler] 2 puff INH Q12H 06/08/20 [History] NIFEdipine [Nifedipine ER] 60 mg PO DAILY 06/08/20 [History] Sennosides/Docusate Sodium [Senna-S] 1 each PO BID 06/08/20 [History] atorvaSTATin [Lipitor] 20 mg PO DAILY 06/08/20 [History] guaiFENesin [Guaifenesin] 200 mg PO TID PRN 06/08/20 [History] Past Medical History HEENT History: Reports: Hard of Hearing, Impaired Vision Cardiovascular History: Reports: High Cholesterol, Hypertension Respiratory History: Reports: Pneumonia, Recurrent Gastrointestinal History: Reports: Fecal Incontinence Genitourinary History: Reports: Urinary Incontinence Musculoskeletal History: Reports: Amputation Other Musculoskeletal History: 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 Denies: Fever Pulmonary: Reports: Shortness of Breath Cardiovascular: Denies: Edema (Chronic) Musculoskeletal: Reports: Other (Left pelvic pain) Psychiatric: Denies: Confusion Exam - Exam Exam: See Below - Exam Quality Assessment: No: Supplemental Oxygen General: Alert, Oriented Neck: Supple Lungs: Normal Respiratory Effort, Decreased Breath Sounds Cardiovascular: Regular Rate, Regular Rhythm GI/Abdominal Exam: Normal Bowel Sounds, Soft, Non-Tender Extremities: No Pedal Edema - Problem List (1) COPD (chronic obstructive pulmonary disease) SNOMED Code(s): 03204964 ICD Code: J44.9 - CHRONIC OBSTRUCTIVE PULMONARY DISEASE, UNSPECIFIED Status: Acute (2) Fracture, pelvis closed SNOMED Code(s): 44374201 ICD Code: S32.9XXA - FRACTURE OF UNSP PARTS OF LUMBOSACRAL SPINE AND PELVIS, INIT Status: Acute Priority: Medium (3) Hypertension SNOMED Code(s): 13289435 ICD Code: I10 - ESSENTIAL (PRIMARY) HYPERTENSION Status: Acute Qualifiers: Problem List Initiated/Reviewed/Updated: Yes Orders Last 24hrs: Active Orders 24 hr Category Date Time Status Admission Status [Patient Status] [ADT] Routine ADT 06/10/20 10:57 Active Antiembolic Devices [RC] PER UNIT ROUTINE Care 06/10/20 10:55 Active Antiembolic Devices [RC] PER UNIT ROUTINE Care 06/10/20 10:55 Active Dietary Supplements [RC] TIDMEALS Care 06/10/20 10:55 Active Oxygen Therapy [RC] PRN Care 06/10/20 10:55 Active Peripheral IV Care [RC] . DIRECTED Care 06/10/20 10:55 Active Peripheral IV Care [RC] . DIRECTED Care 06/10/20 10:55 Active RT Aerosol Therapy [RC] ASDIRECTED Care 06/10/20 10:55 Active RT Aerosol Therapy [RC] ASDIRECTED Care 06/10/20 10:55 Active Up With Assistance [RC] ASDIRECTED Care 06/10/20 10:55 Active VTE/DVT Education [RC] PER UNIT ROUTINE Care 06/10/20 10:55 Active Vital Signs [RC] QSHIFT Care 06/10/20 10:55 Active OT Evaluation and Treatment [CONS] Routine Cons 06/10/20 10:55 Active PT Evaluation and Treatment [CONS] Routine Cons 06/10/20 10:55 Active Regular Diet [DIET] Diet 06/10/20 Breakfast Active Acetaminophen [Tylenol] Med 06/10/20 10:55 Ordered 650 mg PO Q6H PRN Acetaminophen/HYDROcodone [Apex 325-5 MG] Med 06/10/20 10:55 Ordered 1 tab PO Q6H PRN Albuterol/Ipratropium [DuoNeb 3.0-0.5 MG/3 ML] Med 06/10/20 10:55 Ordered 3 ml NEB Q2H PRN Aspirin [Halfprin] Med 06/11/20 09:00 Ordered 81 mg PO DAILY Docusate Sodium/Sennosides [Senna Plus] Med 06/10/20 21:00 Ordered 1 tab PO BID Gabapentin [Neurontin] Med 06/11/20 09:00 Ordered 600 mg PO DAILY Heparin Sodium Med 06/10/20 14:00 Ordered 5,000 units SUBCUT Q8HR Lactulose [Cephulac] Med 06/11/20 09:00 Ordered 20 gm PO DAILY NIFEdipine [Procardia XL] Med 06/11/20 09:00 Ordered 60 mg PO DAILY Ondansetron [Zofran] Med 06/10/20 10:55 Ordered 4 mg IVPUSH Q6H PRN Sodium Chloride 0.9% [Saline Flush] Med 06/10/20 10:55 Ordered 10 ml FLUSH ASDIRECTED PRN Sodium Chloride 0.9% [Saline Flush] Med 06/10/20 10:55 Ordered 10 ml FLUSH ASDIRECTED PRN Zolpidem [Ambien] Med 06/10/20 10:55 Ordered 5 mg PO BEDTIME PRN atorvaSTATin [Lipitor] Med 06/10/20 21:00 Ordered 20 mg PO BEDTIME fentaNYL [Sublimaze] Med 06/10/20 10:55 Ordered 25 mcg IVPUSH Q2H PRN Antiembolic Hose [OM.PC] Per Unit Routine Oth 06/10/20 10:55 Ordered Peripheral IV Insertion Adult [OM.PC] Routine Oth 06/10/20 10:55 Ordered Saline Lock Insert [OM.PC] Routine Oth 06/10/20 10:55 Ordered Resuscitation Status Routine Resus Stat 06/10/20 10:55 Ordered Medication Orders Acetaminophen (Tylenol) 650 mg PO Q6H PRN PRN Reason: mild pain Hydrocodone Bitart/Acetaminophen (Apex 325-5 Mg) 1 tab PO Q6H PRN PRN Reason: moderate Pain Albuterol/Ipratropium (Duoneb 3.0-0.5 Mg/3 Ml) 3 ml NEB Q2H PRN PRN Reason: sob Aspirin (Halfprin) 81 mg PO DAILY [facility] Atorvastatin Calcium (Lipitor) 20 mg PO BEDTIME [facility] Fentanyl (Sublimaze) 25 mcg IVPUSH Q2H PRN PRN Reason: severe pain Gabapentin (Neurontin) 600 mg PO DAILY [facility] Heparin Sodium (Porcine) (Heparin Sodium) 5,000 units SUBCUT Q8HR [facility] Lactulose (Cephulac) 20 gm PO DAILY [facility] Nifedipine (Procardia Xl) 60 mg PO DAILY [facility] Ondansetron HCl (Zofran) 4 mg IVPUSH Q6H PRN PRN Reason: Nausea/Vomiting Senna/Docusate Sodium (Senna Plus) 1 tab PO BID [facility] Sodium Chloride (Saline Flush) 10 ml FLUSH ASDIRECTED PRN PRN Reason: Keep Vein Open Sodium Chloride (Saline Flush) 10 ml FLUSH ASDIRECTED PRN PRN Reason: Keep Vein Open Zolpidem Tartrate (Ambien) 5 mg PO BEDTIME PRN PRN Reason: Sleep Assessment/Plan Comment:: 79-year-old gentleman with a history of COPD, cachexia, hypertension. Presented after a fall. Fall, closed left superior and inferior pubic ramus fracture, left sacral ala fracture I have reviewed the images with orthopedic surgery, Dr. Aldana in [place] at [facility]. Per his recommendation the patient needs conservative management with pain control, physical and occupational therapy. No need for surgical intervention. Use Tylenol for mild pain, hydrocodone for moderate pain, fentanyl IV for severe pain will admit to swing bed for further physical and occupational therapy COPD Appears with no acute exacerbation Continue Pulmicort DuoNeb as needed Constipation use lactulose Hypertension Treat nifedipine DVT prophylaxis with subcutaneous heparin
[2020-06-10] MEDS: Heparin Sodium 5,000 Units/ML Vial SUBCUT SCH ×2 (13:27→21:23)
[2020-06-10] MEDS: fentaNYL 100 MCG/2 ML SDV IVPUSH PRN ×2 (13:27→17:48)
[2020-06-10] MEDS: Acetaminophen/HYDROcodone 325-5 MG Tab PO PRN ×2 (15:11→21:20)
[2020-06-10] MEDS: atorvaSTATin 20 MG Tab PO SCH (21:20)
[2020-06-10] MEDS: Zolpidem 5 MG Tab PO PRN (21:20)
[2020-06-11] MEDS: Sodium Chloride 0.9% 10 ML Syringe FLUSH PRN ×4 (02:07→21:50)
[2020-06-11] MEDS: fentaNYL 100 MCG/2 ML SDV IVPUSH PRN ×2 (02:07→09:02)
[2020-06-11] MEDS: Acetaminophen/HYDROcodone 325-5 MG Tab PO PRN ×4 (05:26→23:44)
[2020-06-11] MEDS: Heparin Sodium 5,000 Units/ML Vial SUBCUT SCH ×3 (05:28→21:48)
[2020-06-11] MEDS: Gabapentin 300 MG Cap PO SCH (08:16)
[2020-06-11] MEDS: Lactulose Soln 10 GM/15 ML 30 ML UD Cup PO SCH (08:16)
[2020-06-11] MEDS: Aspirin 81 MG Tab.EC PO SCH (08:17)
[2020-06-11] MEDS: NIFEdipine 30 MG Tab.ER PO SCH (08:17)
[2020-06-11] MEDS: Nicotine 14 MG/24 Hr Patch TRDERM SCH (11:32)
[2020-06-11] MEDS: Zolpidem 5 MG Tab PO PRN (21:46)
[2020-06-11] MEDS: atorvaSTATin 20 MG Tab PO SCH (21:46)
[2020-06-12] MEDS: Acetaminophen/HYDROcodone 325-5 MG Tab PO PRN ×3 (06:04→18:27)
[2020-06-12] MEDS: Heparin Sodium 5,000 Units/ML Vial SUBCUT SCH ×3 (06:06→21:58)
[2020-06-12] MEDS: Lactulose Soln 10 GM/15 ML 30 ML UD Cup PO SCH (08:47)
[2020-06-12] MEDS: Nicotine 14 MG/24 Hr Patch TRDERM SCH ×2 (08:47→11:28)
[2020-06-12] MEDS: NIFEdipine 30 MG Tab.ER PO SCH (08:48)
[2020-06-12] MEDS: Gabapentin 300 MG Cap PO SCH (08:48)
[2020-06-12] MEDS: Aspirin 81 MG Tab.EC PO SCH (08:48)
[2020-06-12] MEDS: Sodium Chloride 0.9% 10 ML Syringe FLUSH PRN ×2 (09:22→22:02)
[2020-06-12] MEDS: fentaNYL 100 MCG/2 ML SDV IVPUSH PRN (09:22)
[2020-06-12] MEDS: FORMOTEROL INH SCH ×2 (11:29→21:56)
[2020-06-12] MEDS: BUDESONIDE INH SCH ×2 (11:29→21:56)
[2020-06-12] MEDS: Zolpidem 5 MG Tab PO PRN (21:57)
[2020-06-12] MEDS: atorvaSTATin 20 MG Tab PO SCH (21:57)
[2020-06-13] MEDS: Acetaminophen/HYDROcodone 325-5 MG Tab PO PRN ×4 (00:30→21:58)
[2020-06-13] MEDS: Heparin Sodium 5,000 Units/ML Vial SUBCUT SCH ×3 (06:32→21:57)
[2020-06-13] MEDS: Gabapentin 300 MG Cap PO SCH (08:30)
[2020-06-13] MEDS: Aspirin 81 MG Tab.EC PO SCH (08:31)
[2020-06-13] MEDS: NIFEdipine 30 MG Tab.ER PO SCH (08:31)
[2020-06-13] MEDS: Nicotine 14 MG/24 Hr Patch TRDERM SCH (08:31)
[2020-06-13] MEDS: Lactulose Soln 10 GM/15 ML 30 ML UD Cup PO SCH (08:32)
[2020-06-13] MEDS: FORMOTEROL INH SCH ×2 (08:36→20:40)
[2020-06-13] MEDS: BUDESONIDE INH SCH ×2 (08:36→20:40)
[2020-06-13] MEDS: atorvaSTATin 20 MG Tab PO SCH (20:39)
[2020-06-13] MEDS: Zolpidem 5 MG Tab PO PRN (20:39)
[2020-06-14] MEDS: fentaNYL 100 MCG/2 ML SDV IVPUSH PRN ×2 (03:19→21:08)
[2020-06-14] MEDS: Acetaminophen/HYDROcodone 325-5 MG Tab PO PRN ×2 (03:58→13:53)
[2020-06-14] MEDS: Heparin Sodium 5,000 Units/ML Vial SUBCUT SCH ×3 (05:37→21:09)
[2020-06-14] MEDS: BUDESONIDE INH SCH ×2 (08:56→21:16)
[2020-06-14] MEDS: FORMOTEROL INH SCH ×2 (08:56→21:16)
[2020-06-14] MEDS: NIFEdipine 30 MG Tab.ER PO SCH (08:57)
[2020-06-14] MEDS: Gabapentin 300 MG Cap PO SCH (08:57)
[2020-06-14] MEDS: Nicotine 14 MG/24 Hr Patch TRDERM SCH (08:58)
[2020-06-14] MEDS: Aspirin 81 MG Tab.EC PO SCH (08:58)
[2020-06-14] MEDS: Lactulose Soln 10 GM/15 ML 30 ML UD Cup PO SCH (09:00)
[2020-06-14] MEDS: Tiotropium Inhaler 18 MCG Inhalation Powder Cap Kit of 5 INH SCH (09:01)
[2020-06-14] MEDS: atorvaSTATin 20 MG Tab PO SCH (21:07)
[2020-06-14] MEDS: Zolpidem 5 MG Tab PO PRN (21:08)
[2020-06-15] MEDS: fentaNYL 100 MCG/2 ML SDV IVPUSH PRN (02:41)
[2020-06-15] MEDS: Acetaminophen/HYDROcodone 325-5 MG Tab PO PRN ×3 (02:41→16:29)
[2020-06-15] MEDS: Heparin Sodium 5,000 Units/ML Vial SUBCUT SCH ×3 (05:27→21:17)
[2020-06-15] MEDS: BUDESONIDE INH SCH ×2 (09:17→21:17)
[2020-06-15] MEDS: Lactulose Soln 10 GM/15 ML 30 ML UD Cup PO SCH (09:17)
[2020-06-15] MEDS: FORMOTEROL INH SCH ×2 (09:17→21:17)
[2020-06-15] MEDS: Aspirin 81 MG Tab.EC PO SCH (09:18)
[2020-06-15] MEDS: NIFEdipine 30 MG Tab.ER PO SCH (09:20)
[2020-06-15] MEDS: Gabapentin 300 MG Cap PO SCH (09:21)
[2020-06-15] MEDS: Nicotine 14 MG/24 Hr Patch TRDERM SCH (09:22)
[2020-06-15] MEDS: Tiotropium Inhaler 18 MCG Inhalation Powder Cap Kit of 5 INH SCH (09:54)
[2020-06-15] MEDS: Sodium Chloride 0.9% 10 ML Syringe FLUSH PRN (14:36)
[2020-06-15] MEDS: Zolpidem 5 MG Tab PO PRN (21:17)
[2020-06-15] MEDS: atorvaSTATin 20 MG Tab PO SCH (21:17)
[2020-06-16] MEDS: Acetaminophen/HYDROcodone 325-5 MG Tab PO PRN ×3 (03:50→21:03)
[2020-06-16] MEDS: Heparin Sodium 5,000 Units/ML Vial SUBCUT SCH ×3 (06:08→21:02)
[2020-06-16] MEDS: NIFEdipine 30 MG Tab.ER PO SCH (08:44)
[2020-06-16] MEDS: Aspirin 81 MG Tab.EC PO SCH (08:44)
[2020-06-16] MEDS: Nicotine 14 MG/24 Hr Patch TRDERM SCH (08:44)
[2020-06-16] MEDS: Gabapentin 300 MG Cap PO SCH (08:46)
[2020-06-16] MEDS: Sodium Chloride 0.9% 10 ML Syringe FLUSH PRN ×2 (08:48→14:27)
[2020-06-16] MEDS: Lactulose Soln 10 GM/15 ML 30 ML UD Cup PO SCH (08:50)
[2020-06-16] MEDS: Tiotropium Inhaler 18 MCG Inhalation Powder Cap Kit of 5 INH SCH (08:50)
[2020-06-16] MEDS: BUDESONIDE INH SCH ×2 (08:50→21:04)
[2020-06-16] MEDS: FORMOTEROL INH SCH ×2 (08:50→21:04)
[2020-06-16 10:35] LABS: ANION GAP 13.1 mEq/L (7-13); CHLORIDE,CL 98 mmol/L (98-107); SODIUM,NA 135 mmol/L (136-145)
[2020-06-16] MEDS: fentaNYL 100 MCG/2 ML SDV IVPUSH PRN (14:27)
--- NOTE | 2020-06-16 16:12 | PCM.PN ---
- General Info Date of Service: 06/16/20 Admission Dx/Problem (Free Text): Admission Diagnosis/Problem Admission Diagnosis/Problem Weakness Functional Status: Reports: Pain Controlled, Tolerating Diet, Ambulating - Review of Systems Pulmonary: Denies: Shortness of Breath Cardiovascular: Denies: Chest Pain Gastrointestinal: Denies: Abdominal Pain Neurological: Denies: Confusion - Patient Data Vitals - Most Recent: Last Vital Signs Temp 98.7 F 06/16/20 08:00 Pulse 84 06/16/20 08:00 Resp 20 06/16/20 08:00 BP 125/62 06/16/20 08:44 Pulse Ox 99 06/16/20 08:00 Weight - Most Recent: 100 lb 6 oz I&O - Last 24 Hours: Intake & Output 06/16/20 06/16/20 06/16/20 06:59 14:59 22:59 Intake Total 200 440 Output Total 1100 Balance -900 440 Lab Results Last 24 Hours: Laboratory Results - last 24 hr 06/16/20 06/16/20 Range/Units 09:55 09:55 WBC 8.0 (5.0-10.0) 10^3/uL RBC 3.83 L (4.6-6.2) 10^6/uL Hgb 13.1 L (14.0-18.0) g/dL Hct 37.0 L (40.0-54.0) % MCV 96.6 (80-100) fL MCH 34.2 H (27.0-34.0) pg MCHC 35.4 H (33.0-35.0) g/dL Plt Count 442 D (150-450) 10^3/uL Neut % (Auto) 72.5 (42.2-75.2) % Lymph % (Auto) 16.6 L (20.5-50.1) % [place] % (Auto) 9.6 H (2-8) % Eos % (Auto) 1.1 (1.0-3.0) % Baso % (Auto) 0.2 (0.0-1.0) % Sodium 135 L (136-145) mmol/L Potassium 4.1 (3.5-5.1) mmol/L Chloride 98 (98-107) mmol/L Carbon Dioxide 28 (21-32) mmol/L Anion Gap 13.1 H (7-13) mEq/L BUN 15 (7-18) mg/dL Creatinine 0.96 (0.70-1.30) mg/dL Est Cr Clr Drug Dosing 41.50 mL/min Estimated GFR (MDRD) > 60 Glucose 95 (74-99) mg/dL Calcium 9.4 (8.5-10.1) mg/dL Med Orders - Current: Current Medications Acetaminophen (Tylenol) 650 mg PO Q6H PRN PRN Reason: mild pain Last Admin: 06/10/20 12:04 Dose: 650 mg Documented by: Hydrocodone Bitart/Acetaminophen ([place] 325-5 Mg) 1 tab PO Q6H PRN PRN Reason: moderate Pain Last Admin: 06/16/20 09:59 Dose: 1 tab Documented by: Albuterol/Ipratropium (Duoneb 3.0-0.5 Mg/3 Ml) 3 ml NEB Q2H PRN PRN Reason: sob Aspirin (Halfprin) 81 mg PO DAILY [facility] Last Admin: 06/16/20 08:44 Dose: 81 mg Documented by: Atorvastatin Calcium (Lipitor) 20 mg PO BEDTIME [facility] Last Admin: 06/15/20 21:17 Dose: 20 mg Documented by: Fentanyl (Sublimaze) 25 mcg IVPUSH Q2H PRN PRN Reason: severe pain Last Admin: 06/16/20 14:27 Dose: 25 mcg Documented by: Gabapentin (Neurontin) 600 mg PO DAILY [facility] Last Admin: 06/16/20 08:46 Dose: 600 mg Documented by: Heparin Sodium (Porcine) (Heparin Sodium) 5,000 units SUBCUT Q8HR [facility] Last Admin: 06/16/20 14:27 Dose: 5,000 units Documented by: Lactulose (Cephulac) 20 gm PO DAILY [facility] Last Admin: 06/16/20 08:50 Dose: Not Given Documented by: Nicotine (Habitrol) 14 mg TRDERM DAILY [facility] Last Admin: 06/16/20 08:44 Dose: 14 mg Documented by: Nifedipine (Procardia Xl) 60 mg PO DAILY [facility] Last Admin: 06/16/20 08:44 Dose: 60 mg Documented by: Budesonide/Formoterol 160/4.5 ( Symbicort) Inh *Own Med* 2 puff INH Q12H [facility] Last Admin: 06/16/20 08:50 Dose: 2 puff Documented by: Ondansetron HCl (Zofran) 4 mg IVPUSH Q6H PRN PRN Reason: Nausea/Vomiting Senna/Docusate Sodium (Senna Plus) 1 tab PO BID [facility] Last Admin: 06/16/20 08:44 Dose: 1 tab Documented by: Sodium Chloride (Saline Flush) 10 ml FLUSH ASDIRECTED PRN PRN Reason: Keep Vein Open Last Admin: 06/16/20 14:27 Dose: 10 ml Documented by: Tiotropium [place] (Spiriva Handihaler) 18 mcg INH DAILY [facility] Last Admin: 06/16/20 08:50 Dose: 18 mcg Documented by: Zolpidem Tartrate (Ambien) 5 mg PO BEDTIME PRN PRN Reason: Sleep Last Admin: 06/15/20 21:17 Dose: 5 mg Documented by: - Exam General: Alert, Severe Distress Neck: Supple Lungs: Normal Respiratory Effort, Decreased Breath Sounds Cardiovascular: Regular Rate, Regular Rhythm GI/Abdominal Exam: Normal Bowel Sounds, Soft, Non-Tender Extremities: No Pedal Edema Sepsis Event Note - Evaluation Sepsis Screening Result: No Definite Risk - Focused Exam Vital Signs: Vital Signs Temp Pulse Resp BP BP Pulse Ox 06/16/20 08:44 125/62 06/16/20 08:00 98.7 F 84 20 125/62 99 Date Exam was Performed: 06/16/20 Time Exam was Performed: 16:11 - Problem List & Annotations (1) COPD (chronic obstructive pulmonary disease) SNOMED Code(s): 79128578 Code(s): J44.9 - CHRONIC OBSTRUCTIVE PULMONARY DISEASE, UNSPECIFIED Status: Acute Current Visit: No (2) Fracture, pelvis closed SNOMED Code(s): 97177632 Code(s): S32.9XXA - FRACTURE OF UNSP PARTS OF LUMBOSACRAL SPINE AND PELVIS, INIT Status: Acute Priority: Medium Current Visit: No (3) Hypertension SNOMED Code(s): 52803302 Code(s): I10 - ESSENTIAL (PRIMARY) HYPERTENSION Status: Acute Current Visit: No Qualifiers: - Problem List Review Problem List Initiated/Reviewed/Updated: Yes - Plan Plan:: 79-year-old gentleman with a history of COPD, cachexia, hypertension. Presented after a fall. Fall, closed left superior and inferior pubic ramus fracture, left sacral ala fracture I have reviewed the images with orthopedic surgery, Dr. Aldana in [place] at [facility]. Per his recommendation the patient needs conservative management with pain control, physical and occupational therapy. No need for surgical intervention. Use Tylenol for mild pain, hydrocodone for moderate pain, fentanyl IV for severe pain doing well in swing bed cont pt/ot COPD Appears with no acute exacerbation Continue Pulmicort DuoNeb as needed Constipation use lactulose Hypertension Treat nifedipine DVT prophylaxis with subcutaneous heparin
[2020-06-16] MEDS: atorvaSTATin 20 MG Tab PO SCH (21:03)
[2020-06-16] MEDS: Zolpidem 5 MG Tab PO PRN (21:03)
[2020-06-17] MEDS: Heparin Sodium 5,000 Units/ML Vial SUBCUT SCH ×4 (06:25→21:52)
[2020-06-17] MEDS: Gabapentin 300 MG Cap PO SCH (08:35)
[2020-06-17] MEDS: NIFEdipine 30 MG Tab.ER PO SCH (08:35)
[2020-06-17] MEDS: Aspirin 81 MG Tab.EC PO SCH (08:35)
[2020-06-17] MEDS: Lactulose Soln 10 GM/15 ML 30 ML UD Cup PO SCH (08:36)
[2020-06-17] MEDS: Nicotine 14 MG/24 Hr Patch TRDERM SCH (08:36)
[2020-06-17] MEDS: Tiotropium Inhaler 18 MCG Inhalation Powder Cap Kit of 5 INH SCH (08:37)
[2020-06-17] MEDS: BUDESONIDE INH SCH ×2 (08:38→21:42)
[2020-06-17] MEDS: FORMOTEROL INH SCH ×2 (08:38→21:42)
[2020-06-17] MEDS: Acetaminophen/HYDROcodone 325-5 MG Tab PO PRN ×3 (08:44→21:53)
[2020-06-17] MEDS: atorvaSTATin 20 MG Tab PO SCH (21:43)
[2020-06-17] MEDS: Zolpidem 5 MG Tab PO PRN (21:43)
[2020-06-17] MEDS: Sodium Chloride 0.9% 10 ML Syringe FLUSH PRN (22:01)
[2020-06-18] MEDS: Heparin Sodium 5,000 Units/ML Vial SUBCUT SCH ×3 (05:45→21:40)
[2020-06-18] MEDS: Gabapentin 300 MG Cap PO SCH (09:00)
[2020-06-18] MEDS: Acetaminophen/HYDROcodone 325-5 MG Tab PO PRN ×3 (09:00→21:42)
[2020-06-18] MEDS: Aspirin 81 MG Tab.EC PO SCH (09:01)
[2020-06-18] MEDS: Nicotine 14 MG/24 Hr Patch TRDERM SCH (09:01)
[2020-06-18] MEDS: NIFEdipine 30 MG Tab.ER PO SCH (09:01)
[2020-06-18] MEDS: FORMOTEROL INH SCH ×2 (09:02→21:41)
[2020-06-18] MEDS: Tiotropium Inhaler 18 MCG Inhalation Powder Cap Kit of 5 INH SCH (09:02)
[2020-06-18] MEDS: BUDESONIDE INH SCH ×2 (09:02→21:41)
[2020-06-18] MEDS: Lactulose Soln 10 GM/15 ML 30 ML UD Cup PO SCH (09:02)
[2020-06-18] MEDS: atorvaSTATin 20 MG Tab PO SCH (21:41)
[2020-06-18] MEDS: Zolpidem 5 MG Tab PO PRN (21:42)
[2020-06-19] MEDS: Heparin Sodium 5,000 Units/ML Vial SUBCUT SCH ×3 (06:45→21:47)
[2020-06-19] MEDS: Nicotine 14 MG/24 Hr Patch TRDERM SCH (08:13)
[2020-06-19] MEDS: FORMOTEROL INH SCH ×2 (08:13→21:46)
[2020-06-19] MEDS: Lactulose Soln 10 GM/15 ML 30 ML UD Cup PO SCH (08:13)
[2020-06-19] MEDS: BUDESONIDE INH SCH ×2 (08:13→21:46)
[2020-06-19] MEDS: Aspirin 81 MG Tab.EC PO SCH (08:14)
[2020-06-19] MEDS: Gabapentin 300 MG Cap PO SCH (08:14)
[2020-06-19] MEDS: NIFEdipine 30 MG Tab.ER PO SCH (08:14)
[2020-06-19] MEDS: Acetaminophen/HYDROcodone 325-5 MG Tab PO PRN ×3 (08:14→21:47)
[2020-06-19] MEDS: Tiotropium Inhaler 18 MCG Inhalation Powder Cap Kit of 5 INH SCH (08:15)
[2020-06-19] MEDS: atorvaSTATin 20 MG Tab PO SCH (21:46)
[2020-06-19] MEDS: Zolpidem 5 MG Tab PO PRN (21:47)
[2020-06-20] MEDS: Heparin Sodium 5,000 Units/ML Vial SUBCUT SCH ×3 (06:23→21:48)
[2020-06-20] MEDS: Gabapentin 300 MG Cap PO SCH (08:40)
[2020-06-20] MEDS: NIFEdipine 30 MG Tab.ER PO SCH (08:40)
[2020-06-20] MEDS: Acetaminophen/HYDROcodone 325-5 MG Tab PO PRN ×3 (08:40→21:47)
[2020-06-20] MEDS: Aspirin 81 MG Tab.EC PO SCH (08:40)
[2020-06-20] MEDS: Nicotine 14 MG/24 Hr Patch TRDERM SCH (08:41)
[2020-06-20] MEDS: BUDESONIDE INH SCH ×2 (08:41→21:48)
[2020-06-20] MEDS: FORMOTEROL INH SCH ×2 (08:41→21:48)
[2020-06-20] MEDS: Tiotropium Inhaler 18 MCG Inhalation Powder Cap Kit of 5 INH SCH (08:43)
[2020-06-20] MEDS: Lactulose Soln 10 GM/15 ML 30 ML UD Cup PO SCH (09:39)
[2020-06-20] MEDS: atorvaSTATin 20 MG Tab PO SCH (21:46)
[2020-06-20] MEDS: Zolpidem 5 MG Tab PO PRN (21:47)
[2020-06-21] MEDS: Heparin Sodium 5,000 Units/ML Vial SUBCUT SCH ×3 (06:56→21:10)
[2020-06-21] MEDS: NIFEdipine 30 MG Tab.ER PO SCH (09:21)
[2020-06-21] MEDS: Aspirin 81 MG Tab.EC PO SCH (09:22)
[2020-06-21] MEDS: Gabapentin 300 MG Cap PO SCH (09:22)
[2020-06-21] MEDS: Nicotine 14 MG/24 Hr Patch TRDERM SCH (09:23)
[2020-06-21] MEDS: Acetaminophen/HYDROcodone 325-5 MG Tab PO PRN ×3 (09:23→21:13)
[2020-06-21] MEDS: Lactulose Soln 10 GM/15 ML 30 ML UD Cup PO SCH (09:26)
[2020-06-21] MEDS: FORMOTEROL INH SCH ×2 (09:28→21:10)
[2020-06-21] MEDS: BUDESONIDE INH SCH ×2 (09:28→21:10)
[2020-06-21] MEDS: Tiotropium Inhaler 18 MCG Inhalation Powder Cap Kit of 5 INH SCH (09:29)
[2020-06-21] MEDS: atorvaSTATin 20 MG Tab PO SCH (21:10)
[2020-06-21] MEDS: Zolpidem 5 MG Tab PO PRN (21:13)
[2020-06-22] MEDS: Heparin Sodium 5,000 Units/ML Vial SUBCUT SCH ×3 (06:14→21:30)
[2020-06-22] MEDS: Lactulose Soln 10 GM/15 ML 30 ML UD Cup PO SCH (08:59)
[2020-06-22] MEDS: BUDESONIDE INH SCH ×2 (09:08→21:28)
[2020-06-22] MEDS: Tiotropium Inhaler 18 MCG Inhalation Powder Cap Kit of 5 INH SCH (09:08)
[2020-06-22] MEDS: Gabapentin 300 MG Cap PO SCH (09:08)
[2020-06-22] MEDS: FORMOTEROL INH SCH ×2 (09:08→21:28)
[2020-06-22] MEDS: NIFEdipine 30 MG Tab.ER PO SCH (09:08)
[2020-06-22] MEDS: Aspirin 81 MG Tab.EC PO SCH (09:08)
[2020-06-22] MEDS: Acetaminophen/HYDROcodone 325-5 MG Tab PO PRN ×3 (09:09→21:29)
[2020-06-22] MEDS: Nicotine 14 MG/24 Hr Patch TRDERM SCH (09:09)
[2020-06-22] MEDS: atorvaSTATin 20 MG Tab PO SCH (21:29)
[2020-06-22] MEDS: Zolpidem 5 MG Tab PO PRN (21:29)
[2020-06-23] MEDS: Heparin Sodium 5,000 Units/ML Vial SUBCUT SCH ×3 (06:21→21:13)
[2020-06-23] MEDS: Acetaminophen/HYDROcodone 325-5 MG Tab PO PRN ×3 (06:23→21:15)
[2020-06-23] MEDS: BUDESONIDE INH SCH ×2 (08:31→21:14)
[2020-06-23] MEDS: FORMOTEROL INH SCH ×2 (08:31→21:14)
[2020-06-23] MEDS: Tiotropium Inhaler 18 MCG Inhalation Powder Cap Kit of 5 INH SCH (08:32)
[2020-06-23] MEDS: Nicotine 14 MG/24 Hr Patch TRDERM SCH (08:32)
[2020-06-23] MEDS: Aspirin 81 MG Tab.EC PO SCH (08:33)
[2020-06-23] MEDS: NIFEdipine 30 MG Tab.ER PO SCH (08:33)
[2020-06-23] MEDS: Gabapentin 300 MG Cap PO SCH (08:33)
[2020-06-23] MEDS: Lactulose Soln 10 GM/15 ML 30 ML UD Cup PO SCH (08:34)
--- NOTE | 2020-06-23 10:30 | PN ---
DATE: 06/23/2020 SUBJECTIVE: The patient is a 80-year-old gentleman admitted to swing bed because of left-sided pelvic fracture. The patient is still complaining of some hip pain, but this is slowly getting better. Otherwise, no other significant complaints. No chest pain, shortness of breath, fever, chills. OBJECTIVE: Vital Signs: Blood pressure 125/56, pulse of 84, respirations 20, temperature of 97.8, saturation is 100% on room air. Heart: Regular rate and rhythm. Normal S1 and S2. No gallops. No rubs. Lungs: Equal bilaterally. No crackles. No wheezing. Abdomen: Soft, nontender. Extremities: Negative for any pedal edema. No calf tenderness. MEDICATIONS: Reviewed. PLAN: We will continue with his present management and continue with pain management, and continue with PT and OT. [facility] /[id number]
[2020-06-23] MEDS ORDERED: Lactulose Soln 10 GM/15 ML 30 ML UD Cup PO PRN (12:16)
[2020-06-23] MEDS: atorvaSTATin 20 MG Tab PO SCH (21:13)
[2020-06-23] MEDS: Zolpidem 5 MG Tab PO PRN (21:26)
[2020-06-24] MEDS: Heparin Sodium 5,000 Units/ML Vial SUBCUT SCH ×3 (06:36→22:53)
[2020-06-24] MEDS: Gabapentin 300 MG Cap PO SCH (10:18)
[2020-06-24] MEDS: Acetaminophen/HYDROcodone 325-5 MG Tab PO PRN ×2 (10:18→22:54)
[2020-06-24] MEDS: Aspirin 81 MG Tab.EC PO SCH (10:18)
[2020-06-24] MEDS: NIFEdipine 30 MG Tab.ER PO SCH (10:18)
[2020-06-24] MEDS: FORMOTEROL INH SCH ×2 (10:22→22:56)
[2020-06-24] MEDS: BUDESONIDE INH SCH ×2 (10:22→22:56)
[2020-06-24] MEDS: Nicotine 14 MG/24 Hr Patch TRDERM SCH (10:23)
[2020-06-24] MEDS: Tiotropium Inhaler 18 MCG Inhalation Powder Cap Kit of 5 INH SCH (10:23)
[2020-06-24] MEDS: Zolpidem 5 MG Tab PO PRN (22:54)
[2020-06-24] MEDS: atorvaSTATin 20 MG Tab PO SCH (22:56)
[2020-06-25] MEDS: Heparin Sodium 5,000 Units/ML Vial SUBCUT SCH ×3 (06:48→21:07)
[2020-06-25] MEDS: Gabapentin 300 MG Cap PO SCH (09:03)
[2020-06-25] MEDS: NIFEdipine 30 MG Tab.ER PO SCH (09:03)
[2020-06-25] MEDS: Acetaminophen/HYDROcodone 325-5 MG Tab PO PRN ×2 (09:04→21:09)
[2020-06-25] MEDS: Aspirin 81 MG Tab.EC PO SCH (09:04)
[2020-06-25] MEDS: FORMOTEROL INH SCH ×2 (09:05→21:12)
[2020-06-25] MEDS: BUDESONIDE INH SCH ×2 (09:05→21:12)
[2020-06-25] MEDS: Tiotropium Inhaler 18 MCG Inhalation Powder Cap Kit of 5 INH SCH (09:05)
[2020-06-25] MEDS: Nicotine 14 MG/24 Hr Patch TRDERM SCH (09:06)
[2020-06-25] MEDS: Zolpidem 5 MG Tab PO PRN (21:08)
[2020-06-25] MEDS: atorvaSTATin 20 MG Tab PO SCH (21:09)
[2020-06-26] MEDS: Heparin Sodium 5,000 Units/ML Vial SUBCUT SCH ×3 (06:20→21:11)
[2020-06-26] MEDS: Nicotine 14 MG/24 Hr Patch TRDERM SCH (08:26)
[2020-06-26] MEDS: Acetaminophen/HYDROcodone 325-5 MG Tab PO PRN ×2 (08:26→15:27)
[2020-06-26] MEDS: Aspirin 81 MG Tab.EC PO SCH (08:27)
[2020-06-26] MEDS: NIFEdipine 30 MG Tab.ER PO SCH (08:27)
[2020-06-26] MEDS: Gabapentin 300 MG Cap PO SCH (08:27)
[2020-06-26] MEDS: Tiotropium Inhaler 18 MCG Inhalation Powder Cap Kit of 5 INH SCH (08:29)
[2020-06-26] MEDS: FORMOTEROL INH SCH ×2 (08:29→21:07)
[2020-06-26] MEDS: BUDESONIDE INH SCH ×2 (08:29→21:07)
[2020-06-26] MEDS: atorvaSTATin 20 MG Tab PO SCH (21:06)
[2020-06-27] MEDS: Heparin Sodium 5,000 Units/ML Vial SUBCUT SCH ×3 (05:48→21:36)
[2020-06-27] MEDS: Tiotropium Inhaler 18 MCG Inhalation Powder Cap Kit of 5 INH SCH (08:27)
[2020-06-27] MEDS: NIFEdipine 30 MG Tab.ER PO SCH (08:28)
[2020-06-27] MEDS: Gabapentin 300 MG Cap PO SCH (08:28)
[2020-06-27] MEDS: Acetaminophen/HYDROcodone 325-5 MG Tab PO PRN ×3 (08:29→21:36)
[2020-06-27] MEDS: Aspirin 81 MG Tab.EC PO SCH (08:29)
[2020-06-27] MEDS: BUDESONIDE INH SCH ×2 (08:30→21:35)
[2020-06-27] MEDS: FORMOTEROL INH SCH ×2 (08:30→21:35)
[2020-06-27] MEDS: Nicotine 14 MG/24 Hr Patch TRDERM SCH (08:30)
[2020-06-27] MEDS: Zolpidem 5 MG Tab PO PRN (21:35)
[2020-06-27] MEDS: atorvaSTATin 20 MG Tab PO SCH (21:35)
[2020-06-28] MEDS: Heparin Sodium 5,000 Units/ML Vial SUBCUT SCH ×3 (05:34→21:09)
[2020-06-28] MEDS: Acetaminophen/HYDROcodone 325-5 MG Tab PO PRN ×3 (05:35→21:08)
[2020-06-28] MEDS: Tiotropium Inhaler 18 MCG Inhalation Powder Cap Kit of 5 INH SCH (09:05)
[2020-06-28] MEDS: BUDESONIDE INH SCH ×2 (09:06→21:10)
[2020-06-28] MEDS: FORMOTEROL INH SCH ×2 (09:06→21:10)
[2020-06-28] MEDS: NIFEdipine 30 MG Tab.ER PO SCH (09:07)
[2020-06-28] MEDS: Aspirin 81 MG Tab.EC PO SCH (09:07)
[2020-06-28] MEDS: Gabapentin 300 MG Cap PO SCH (09:08)
[2020-06-28] MEDS: Nicotine 14 MG/24 Hr Patch TRDERM SCH (09:13)
[2020-06-28] MEDS: atorvaSTATin 20 MG Tab PO SCH (21:08)
[2020-06-28] MEDS: Zolpidem 5 MG Tab PO PRN (21:08)
[2020-06-29] MEDS: Heparin Sodium 5,000 Units/ML Vial SUBCUT SCH ×3 (05:48→21:07)
[2020-06-29] MEDS: Acetaminophen/HYDROcodone 325-5 MG Tab PO PRN ×3 (05:49→19:56)
[2020-06-29] MEDS: NIFEdipine 30 MG Tab.ER PO SCH (08:22)
[2020-06-29] MEDS: Aspirin 81 MG Tab.EC PO SCH (08:23)
[2020-06-29] MEDS: Gabapentin 300 MG Cap PO SCH (08:23)
[2020-06-29] MEDS: BUDESONIDE INH SCH ×2 (08:24→21:36)
[2020-06-29] MEDS: FORMOTEROL INH SCH ×2 (08:24→21:36)
[2020-06-29] MEDS: Nicotine 14 MG/24 Hr Patch TRDERM SCH (08:26)
[2020-06-29] MEDS: Tiotropium Inhaler 18 MCG Inhalation Powder Cap Kit of 5 INH SCH (08:29)
[2020-06-29] MEDS: atorvaSTATin 20 MG Tab PO SCH (21:04)
[2020-06-29] MEDS: Zolpidem 5 MG Tab PO PRN (21:05)
[2020-06-30] MEDS: Heparin Sodium 5,000 Units/ML Vial SUBCUT SCH (05:56)
[2020-06-30] MEDS: Acetaminophen/HYDROcodone 325-5 MG Tab PO PRN (05:57)
[2020-06-30 08:04] VITALS: PULSE 83
[2020-06-30] MEDS: Nicotine 14 MG/24 Hr Patch TRDERM SCH (08:36)
[2020-06-30] MEDS: Gabapentin 300 MG Cap PO SCH (08:36)
[2020-06-30] MEDS: NIFEdipine 30 MG Tab.ER PO SCH (08:37)
[2020-06-30] MEDS: Aspirin 81 MG Tab.EC PO SCH (08:37)
[2020-06-30] MEDS: Tiotropium Inhaler 18 MCG Inhalation Powder Cap Kit of 5 INH SCH (08:37)
[2020-06-30 08:38] VITALS: BP 107/64
[2020-06-30] MEDS: BUDESONIDE INH SCH (08:38)
[2020-06-30] MEDS: FORMOTEROL INH SCH (08:38)
--- NOTE | 2020-06-30 10:36 | PN ---
DATE: 06/30/2020 SUBJECTIVE: The patient continues to do well and the patient denies any ongoing complaints. No chest pain or worsening of shortness of breath, abdominal pain, or any other complaints. OBJECTIVE: Vital Signs: Blood pressure is 133/57, pulse of 87, respirations 20, temperature of 98.1, saturation is 97% on room air. Heart: Regular rate and rhythm. Normal S1 and S2. No gallops. No rubs. Lungs: Diminished breath sounds on both bases, but no crackles, no wheezing. Abdomen: Soft, nontender. Bowel sounds positive. Extremities: Negative for any pedal edema. No calf tenderness. MEDICATIONS: Reviewed. PLAN: We will continue with his present management and we will also discharge the patient home today and he is going to follow up with his primary care provider in 7 to 10 days. [facility] /[id number]
--- NOTE | 2020-06-30 11:10 | DISCH ---
FINAL DIAGNOSES: 1. Pelvic fracture. 2. Chronic obstructive pulmonary disease. 3. Hypertension. BRIEF HISTORY OF PRESENT ILLNESS: The patient is a -[id number] gentleman with history of COPD, cachexia, and hypertension, who was admitted after a fall and he sustained fracture of the left superior and inferior pubic ramus and left sacral ala fracture. Consultation with Orthopedic Surgery was done and recommendation was conservative management with pain control. He was admitted to swing bed. He was seen by PT and OT, and was managed with IV and oral pain medication. The patient did well and swing bed hospitalization was uncomplicated, and he was subsequently discharged. CONDITION ON DISCHARGE: Improved. DISCHARGE INSTRUCTIONS: The patient is going to follow up with his primary care [facility] ([facility]) in 7 to 10 days. He will also be resumed on his home medication. [facility] /[id number]
--- NOTE | 2020-06-30 11:10 | DISCH ---
ADDENDUM: The patient is going for home health as the patient needs longterm for medication teaching, physical therapy for home exercise program, and occupational therapy for home safety evaluation. Also needs home health aide for cares and health bathing. [facility] /[id number]
== END 2020-06-30 11:00 | disposition home or self-care (01) | DRG 536 ==
LOC: DL.MS 10:57
PROVIDERS: ADMIT Internal Medicine; ATTEND Internal Medicine
DX: S32.511A Fracture of superior rim of right pubis, initial encounter for closed fracture (principal); S32.10XA Unspecified fracture of sacrum, initial encounter for closed fracture; R64 Cachexia; Z68.1 Body mass index [BMI] 19.9 or less, adult; J44.9 Chronic obstructive pulmonary disease, unspecified; Z66 Do not resuscitate; I10 Essential (primary) hypertension; E78.00 Pure hypercholesterolemia, unspecified; K59.00 Constipation, unspecified; Z79.82 Long term (current) use of aspirin; Z79.899 Other long term (current) drug therapy; Z87.01 Personal history of pneumonia (recurrent); W19.XXXA Unspecified fall, initial encounter
CPT/HCPCS: 36415; 80048; 85025; 97110-GO; 97110-GP; 97116-GP; 97162-GP; 97166-GO; 97530-GO; 97535-GO; A9270-GY; J1644; J3010

== ENCOUNTER 2021-03-03 19:18 | Emergency (ER) | payer OTHER, MEDICARE, MEDICAID ==
[2021-03-03 19:29] VITALS: BP 108/48; PULSE 78
[2021-03-03 19:53] LABS: ANION GAP 18.7 mEq/L (7-13); CHLORIDE,CL 98 mmol/L (98-107); SODIUM,NA 135 mmol/L (136-145)
--- NOTE | 2021-03-03 20:22 | CT ---
PROCEDURE INFORMATION: Exam: CT Cervical Spine Without Contrast Exam date and time: 03/03/2021 7:54 PM Age: 80 years old Clinical indication: Other: Syncope TECHNIQUE: Imaging protocol: Computed tomography images of the cervical spine without contrast. Radiation optimization: All CT scans at this facility use at least one of these dose optimization techniques: automated exposure control; mA and/or kV adjustment per patient size (includes targeted exams where dose is matched to clinical indication); or iterative reconstruction. COMPARISON: No relevant prior studies available. FINDINGS: Bones/joints: Osteoporosis. Mild anterior subluxation of C2 on C3, C3 on C4, C4 on C5. Findings may be chronic in this patient with no reported history of trauma. Discs/Spinal canal/Neural foramina: There are degenerative changes demonstrated in the atlantoaxial joint at C1-C2 with osteophytes and joint space narrowing. The transverse ligament is thickened with regional osteophytes. Disc space narrowing at C2-C3, C5-C6 and C6-C7 with intervertebral osteophytes. Severe foraminal narrowing on the right and moderate foraminal narrowing on the left at C3, severe bilateral foraminal narrowing at C4, C5, and C6 secondary to uncinate joint hypertrophic changes. Lungs: Lung apices are normal. Vasculature: Atherosclerotic changes demonstrated in the V4 segments of the vertebral arteries. Atherosclerotic changes in the proximal internal carotid arteries bilaterally. Soft tissues: Unremarkable. IMPRESSION: 1. Mild anterior subluxation of C2 on C3, C3 on C4, C4 on C5. Findings may be chronic in this patient with no reported history of trauma. 2. There are degenerative changes demonstrated in the atlantoaxial joint at C1-C2 with osteophytes and joint space narrowing. The transverse ligament is thickened with regional osteophytes. 3. Multilevel acquired degenerative foraminal stenosis as described above. 4. No acute findings.
--- NOTE | 2021-03-03 20:25 | CT ---
PROCEDURE INFORMATION: Exam: CT Head Without Contrast Exam date and time: 03/03/2021 7:54 PM Age: 80 years old Clinical indication: Syncope and collapse TECHNIQUE: Imaging protocol: Computed tomography of the head without contrast. Radiation optimization: All CT scans at this facility use at least one of these dose optimization techniques: automated exposure control; mA and/or kV adjustment per patient size (includes targeted exams where dose is matched to clinical indication); or iterative reconstruction. COMPARISON: CT Head wo Cont 05/09/2014 5:51 AM FINDINGS: Brain: There is moderate diffuse cerebellar atrophy. There is moderate parenchymal volume loss. White matter changes are demonstrated in the subcortical, centrum semiovale and periventricular white matter consistent with chronic age related small vessel ischemic changes. 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 Cerebral ventricles: The degree of ventricular dilatation is normal for age and/or degree of atrophy present. Bones/joints: Unremarkable. No acute fracture. Paranasal sinuses: Visualized sinuses are unremarkable. No fluid levels. Mastoid air cells: Visualized mastoid air cells are well aerated. Vasculature: Atherosclerotic calcifications are demonstrated in the intracranial carotid arteries bilaterally as well as in the vertebral basilar system. Soft tissues: Unremarkable. IMPRESSION: 1. There is moderate diffuse cerebellar atrophy. 2. There is moderate parenchymal volume loss. White matter changes are demonstrated in the subcortical, centrum semiovale and periventricular white matter consistent with chronic age related small vessel ischemic changes. 3. The degree of ventricular dilatation is normal for age and/or degree of atrophy present. 4. No acute intracranial findings.
--- NOTE | 2021-03-04 00:27 | EDM.PDOC ---
ED HPI GENERAL MEDICAL PROBLEM - General Chief Complaint: Neck Problem Stated Complaint: AMBULANCE Time Seen by Provider: 03/03/21 19:40 Source of Information: Reports: Patient, EMS, Family, RN History Limitations: Reports: No Limitations - History of Present Illness INITIAL COMMENTS - FREE TEXT/NARRATIVE: ED via [facility] with report of syncopal episode at home, witnessed sitting at table with family . C/o neck pain , chronic problem rubbing back of his neck and passed out for approximately 30 seconds and incontinent of urine. Oriented on awakening. No noted postictal period, no tremors shaking. No weakness. No c/o chest pain, Chronic cough. Primary care at [facility] today. Neck Pain Score (Numeric/FACES): 5 - Related Data Allergies Allergy/AdvReac Type Severity Reaction Status Date / Time No Known Allergies Allergy Verified 03/03/21 19:31 Home Meds: Home Meds Acetaminophen [Tylenol] 650 mg PO Q6H PRN 06/10/14 [History] Aspirin [Ecotrin EC] 81 mg PO DAILY 06/10/14 [History] Acetaminophen/HYDROcodone [Peggs 325-5 MG] 1 tab PO Q6H PRN #20 tablet 07/14/16 [Rx] NIFEdipine [Nifedipine ER] 60 mg PO DAILY 06/08/20 [History] Sennosides/Docusate Sodium [Senna-S] 1 each PO BID 06/08/20 [History] atorvaSTATin [Lipitor] 10 mg PO DAILY 06/08/20 [History] guaiFENesin [Guaifenesin] 400 mg PO TID PRN 06/08/20 [History] Cholecalciferol (Vitamin D3) [Vitamin D3] 50 mcg PO DAILY 06/10/20 [History] Gabapentin [Neurontin] 600 mg PO TID 06/10/20 [History] Tiotropium [Spiriva HandiHaler] 18 mcg INH DAILY 06/12/20 [History] Budesonide/Formoterol Fumarate [Symbicort 160-4.5 Mcg Inhaler] 2 puff INH Q12H 30 Days #1 inh 06/30/20 [Rx] Zolpidem [Ambien] 5 mg PO BEDTIME PRN 15 Days #15 tablet 06/30/20 [Rx] Past Medical History HEENT History: Reports: Hard of Hearing, Impaired Vision Cardiovascular History: Reports: High Cholesterol, Hypertension Respiratory History: Reports: Pneumonia, Recurrent Gastrointestinal History: Reports: Fecal Incontinence Genitourinary History: Reports: Urinary Incontinence Musculoskeletal History: Reports: Amputation Other Musculoskeletal History: 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 - Infectious Disease History Infectious Disease History: Reports: Chicken Pox, Measles, Mumps, Shingles - Past Surgical History Musculoskeletal Surgical History: Reports: Other (See Below) Other Musculoskeletal Surgeries/Procedures:: left hip and ankle surgery Social & Family History - Family History Family Medical History: No Pertinent Family History - Tobacco Use Tobacco Use Status *Q: Current Every Day Tobacco User Years of Tobacco use: 65 Packs/Tins Daily: 0.7 - Caffeine Use Caffeine Use: Reports: Coffee - Recreational Drug Use Recreational Drug Use: No ED ROS GENERAL - Review of Systems Review Of Systems: Comprehensive ROS is negative, except as noted in HPI. ED EXAM, GENERAL - Physical Exam Exam: See Below Exam Limited By: No Limitations General Appearance: Alert, No Apparent Distress, Thin Eye Exam: Bilateral Eye: EOMI, PERRL Ears: Normal External Exam, Hearing Grossly Normal Nose: Normal Inspection Throat/Mouth: Normal Inspection Head: Atraumatic, Normocephalic Neck: Limited Range of Motion (stiff flexion) Respiratory/Chest: No Respiratory Distress, Decreased Breath Sounds, Crackles (loweer bases), Other (ocassional loose bronchial cough) Cardiovascular: Normal Peripheral Pulses, Regular Rate, Rhythm GI/Abdominal: Normal Bowel Sounds, Soft Extremities: Normal Inspection, Normal Range of Motion Neurological: Alert, Oriented, Normal Cognition, Normal Reflexes, No Motor/Sensory Deficits, Other (bilateral strength equal, no drift ). No: Memory Loss Recent Events, Sensory/Motor Deficit Psychiatric: Normal Affect, Normal Mood Skin Exam: Warm, Dry, Normal Color, Wound/Incision (quarter size excoriation mid chest) #1 Interpretation EKG Date: 03/03/21 Time: 19:20 Rhythm: NSR Rate (Beats/Min): 81 [place]: Normal QRS: Normal Comparison: NA - No Prior EKG Course - Vital Signs Last Recorded V/S: Last Vital Signs Temp 97.5 F 03/03/21 19: Pulse 78 03/03/21 19: Resp 20 03/03/21 19: BP 108/48 L 03/03/21 19:27 Pulse Ox 94 L 03/03/21 19:27 - Orders/Labs/Meds Orders: Active Orders 24 hr Category Date Time Status Blood Glucose Check, Bedside [RC] ONETIME Care 03/03/21 19:14 Active Labs: Laboratory Tests 03/03/21 03/03/21 03/03/21 Range/Units 19:27 19:27 19:32 WBC 8.0 (5.0-10.0) 10^3/uL RBC 4.56 L (4.6-6.2) 10^6/uL Hgb 15.4 D (14.0-18.0) g/dL Hct 43.9 (40.0-54.0) % MCV 96.3 (80-100) fL MCH 33.8 (27.0-34.0) pg MCHC 35.1 H (33.0-35.0) g/dL Plt Count 260 D (150-450) 10^3/uL Neut % (Auto) 61.9 (42.2-75.2) % Lymph % (Auto) 24.2 (20.5-50.1) % [place] % (Auto) 12.1 H (2-8) % Eos % (Auto) 1.4 (1.0-3.0) % Baso % (Auto) 0.4 (0.0-1.0) % Sodium 135 L (136-145) mmol/L Potassium 3.7 (3.5-5.1) mmol/L Chloride 98 (98-107) mmol/L Carbon Dioxide 22 (21-32) mmol/L Anion Gap 18.7 H (7-13) mEq/L BUN 30 H (7-18) mg/dL Creatinine 1.49 H (0.70-1.30) mg/dL Est Cr Clr Drug Dosing 29.23 mL/min Estimated GFR (MDRD) 46 BUN/Creatinine Ratio 20.1 (No establ ref range) Glucose 133 H (70-99) mg/dL POC Glucose 130 H (70-99) mg/dL Calcium 10.7 H (8.5-10.1) mg/dL Magnesium 1.9 (1.8-2.4) mg/dL Total Bilirubin 0.4 (0.2-1.0) mg/dL AST 22 (15-37) U/L ALT 23 (16-63) U/L Alkaline Phosphatase 24 L (46-116) U/L Troponin I < 0.017 (0.000-0.056) ng/mL Total Protein 8.2 (6.4-8.2) g/dL Albumin 3.7 (3.4-5.0) g/dL Globulin 4.5 Albumin/Globulin Ratio 0.8 Ethyl Alcohol 35 (0) mg/dL SARS-CoV-2 RNA (EDY) (NEGATIVE) 03/03/21 Range/Units 22:03 WBC (5.0-10.0) 10^3/uL RBC (4.6-6.2) 10^6/uL Hgb (14.0-18.0) g/dL Hct (40.0-54.0) % MCV (80-100) fL MCH (27.0-34.0) pg MCHC (33.0-35.0) g/dL Plt Count (150-450) 10^3/uL Neut % (Auto) (42.2-75.2) % Lymph % (Auto) (20.5-50.1) % [place] % (Auto) (2-8) % Eos % (Auto) (1.0-3.0) % Baso % (Auto) (0.0-1.0) % Sodium (136-145) mmol/L Potassium (3.5-5.1) mmol/L Chloride (98-107) mmol/L Carbon Dioxide (21-32) mmol/L Anion Gap (7-13) mEq/L BUN (7-18) mg/dL Creatinine (0.70-1.30) mg/dL Est Cr Clr Drug Dosing mL/min Estimated GFR (MDRD) BUN/Creatinine Ratio (No establ ref range) Glucose (70-99) mg/dL POC Glucose (70-99) mg/dL Calcium (8.5-10.1) mg/dL Magnesium (1.8-2.4) mg/dL Total Bilirubin (0.2-1.0) mg/dL AST (15-37) U/L ALT (16-63) U/L Alkaline Phosphatase (46-116) U/L Troponin I (0.000-0.056) ng/mL Total Protein (6.4-8.2) g/dL Albumin (3.4-5.0) g/dL Globulin Albumin/Globulin Ratio Ethyl Alcohol (0) mg/dL SARS-CoV-2 RNA (EDY) Negative (NEGATIVE) Departure - Departure Time of Disposition: 00:50 Disposition: DC/Tfer to Acute Hospital 02 Condition: Good Clinical Impression: Chronic neck pain, History of COPD Episode of syncope Qualifiers: Syncope type: unspecified Qualified Code(s): R55 - Syncope and collapse - Discharge Information *PRESCRIPTION DRUG MONITORING PROGRAM REVIEWED*: No *COPY OF PRESCRIPTION DRUG MONITORING REPORT IN PATIENT EDDIE: No Forms: ED Department Discharge Sepsis Event Note (ED) - Evaluation Sepsis Screening Result: No Definite Risk - Focused Exam Vital Signs: Vital Signs Temp Pulse Resp BP Pulse Ox 03/03/21 19:27 97.5 F 78 20 108/48 L 94 L - My Orders Last 24 Hours: My Active Orders 03/03/21 19:14 Blood Glucose Check, Bedside [RC] ONETIME - Assessment/Plan Last 24 Hours: My Active Orders 03/03/21 19:14 Blood Glucose Check, Bedside [RC] ONETIME
== END 2021-03-04 00:53 ==
LOC: DL.ED 19:18
DX: G89.29 Other chronic pain (principal); M54.2 Cervicalgia; R55 Syncope and collapse; E78.00 Pure hypercholesterolemia, unspecified; J44.9 Chronic obstructive pulmonary disease, unspecified; I10 Essential (primary) hypertension; Z20.822 Contact with and (suspected) exposure to COVID-19; Z72.0 Tobacco use; Z79.899 Other long term (current) drug therapy; Z79.82 Long term (current) use of aspirin
CPT/HCPCS: 36415; 70450; 72125; 80053; 80307; 82947; 83735; 84484; 85025; 93005; 93010; 99283; 99285-25; U0002

== ENCOUNTER 2021-04-02 17:01 | Inpatient (IN) | payer OTHER, MEDICARE, MEDICAID ==
[2021-04-02] MEDS ORDERED: Magnesium Sulfate/Water 2 GM in Premix Bag 1 BAG IV ONE (21:08)
[2021-04-02] MEDS ORDERED: Sodium Chloride 0.9% 1,000 ML IV ONE (21:08)
[2021-04-02] MEDS ORDERED: Potassium Chloride 20 MEQ in Premix Bag 1 BAG IV ONE (21:08)
--- NOTE | 2021-04-02 22:16 | CT ---
PROCEDURE INFORMATION: Exam: CT Abdomen And Pelvis Without Contrast Exam date and time: 04/02/2021 9:21 PM Age: 80 years old Clinical indication: Constipation; Additional info: R/O small bowel obstruction; Wbc 16. Constipation for one week with vomiting and now passing watery stools TECHNIQUE: Imaging protocol: Computed tomography of the abdomen and pelvis without contrast. Radiation optimization: All CT scans at this facility use at least one of these dose optimization techniques: automated exposure control; mA and/or kV adjustment per patient size (includes targeted exams where dose is matched to clinical indication); or iterative reconstruction. COMPARISON: CT Pelvis wo Cont 06/08/2020 9:49 PM FINDINGS: Lungs: There is a background of centrilobular emphysema and pulmonary fibrosis. Liver: Normal. No mass. Gallbladder and bile ducts: Status post cholecystectomy. Pancreas: Normal. No ductal dilation. Spleen: Normal. No splenomegaly. Adrenal glands: Normal. No mass. Kidneys and ureters: Normal. No hydronephrosis. Stomach and bowel: The moderate stool is present within the sigmoid colon and rectum. A few diverticula are seen the distal descending colon and sigmoid colon. There are no inflammatory changes seen to suggest diverticulitis however. Appendix: No evidence of appendicitis. Intraperitoneal space: See "Vasculature" finding. Vasculature: There is dilatation of the distal descending thoracic aorta at the level of the aortic hiatus measuring 3.3 cm in diameter. There is no evidence for dissection or extravasation. Calcifications are seen within the thoracic and abdominal aorta, iliac arteries and femoral arteries bilaterally and within branches of the renal arteries bilaterally. Lymph nodes: Unremarkable. No enlarged lymph nodes. Urinary bladder: Unremarkable as visualized. Reproductive: Unremarkable as visualized. Bones/joints: Unremarkable. No acute fracture. Soft tissues: Unremarkable. Other findings: There are some strandy opacity seen in the perirectal fat and fascia, findings could represent mild inflammatory changes and proctitis. IMPRESSION: 1. Moderate stool is seen within the sigmoid colon and rectum. There are some strandy opacity seen in the perirectal fascia, findings that could represent mild inflammatory changes and proctitis. 2. Mild diverticulosis of the descending and sigmoid colon. 3. 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
[2021-04-02] MEDS ORDERED: Levofloxacin/Dextrose 5%-Water 750 MG in Premix Bag 1 BAG IV ONE (22:32)
[2021-04-03] MEDS ORDERED: Formoterol/Mometasone 200-5 MCG 8.8 GM Inhaler IH SCH (00:45)
--- NOTE | 2021-04-03 00:47 | PCM.HP ---
H&P History of Present Illness - General Date of Service: 04/03/21 Admit Problem/Dx: Admission Diagnosis/Problem Admission Diagnosis/Problem Acute kidney injury - History of Present Illness Initial Comments - Free Text/Narative: 80M w/ pmh COPD, smoker, HT, HL, lung nodules p/w constipation. Pt came in c/o several days of constipation. Further interview reveals pt has chronic cough while still smoking. States cough has become 'deeper' but denies hemoptysis. c/o poor appetite, progressive weakness, recent onset b/l hand paresthesias, always feeling cold. He also reports weight loss but EMR review shows stable weight. He lives in an apartment just below his daughter and had an aide who comes in intermittently. He's been struggling but tried to remain independent but last few days he has been extremely weak. Daughter also reports confusion and speech slurring recently like he's drunk. He has been afebrile. ER evaluation reveals fecal impaction and proctitis on CT a/p. Labs reveal DINORA and profound hypercalcemia >16. There is also leukocytosis 17k. Review of EMR reveals 1 mo ago pt had been in the ER w/ syncope and labs showed already worsening kidney function and mildly elevated calcium. Furthermore, a CT chest done 3 mo ago, done for the purpose of following up prior lung nodules noted a RUL which had grown significantly and had become denser - 'suspicious for malignancy' per radiologist. Pt and daughter were not aware of this finding. Advanced care planning discussion w/ patient and daughter took place lasting 15 min. We discussed all of above findings. We also discussed code status and pt is adamant on DNR/DNI. Daughter states this is in line w/ his prior wishes. DAVID Carpio witnessed this discussion. Back Pain Score (Numeric/FACES): 8 - Related Data Allergies/Adverse Reactions: Allergies Allergy/AdvReac Type Severity Reaction Status Date / Time No Known Allergies Allergy Verified 04/02/21 17:39 Home Medications: Home Meds Acetaminophen [Tylenol] 650 mg PO Q6H PRN 06/10/14 [History] Aspirin [Ecotrin EC] 81 mg PO DAILY 06/10/14 [History] NIFEdipine [Nifedipine ER] 60 mg PO DAILY 06/08/20 [History] Sennosides/Docusate Sodium [Senna-S] 1 each PO BID 06/08/20 [History] atorvaSTATin [Lipitor] 10 mg PO DAILY 06/08/20 [History] Cholecalciferol (Vitamin D3) [Vitamin D3] 50 mcg PO DAILY 06/10/20 [History] Gabapentin [Neurontin] 600 mg PO TID 06/10/20 [History] Tiotropium [Spiriva HandiHaler] 18 mcg INH DAILY 06/12/20 [History] Budesonide/Formoterol Fumarate [Symbicort 160-4.5 Mcg Inhaler] 2 puff INH Q12H 30 Days #1 inh 06/30/20 [Rx] Zolpidem [Ambien] 5 mg PO BEDTIME PRN 15 Days #15 tablet 06/30/20 [Rx] Past Medical History HEENT History: Reports: Hard of Hearing, Impaired Vision Other HEENT History: wears glasses Cardiovascular History: Reports: High Cholesterol, Hypertension Respiratory History: Reports: Pneumonia, Recurrent Gastrointestinal History: Reports: Fecal Incontinence Genitourinary History: Reports: Urinary Incontinence Musculoskeletal History: Reports: Amputation Other Musculoskeletal History: 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 Psychiatric History: Reports: None Hematologic History: Reports: None Immunologic History: Reports: None Oncologic (Cancer) History: Reports: None Dermatologic History: Reports: None - Infectious Disease History Infectious Disease History: Reports: Chicken Pox, Measles, Mumps, Shingles - Past Surgical History Head Surgeries/Procedures: Reports: None Musculoskeletal Surgical History: Reports: Other (See Below) Other Musculoskeletal Surgeries/Procedures:: left hip and ankle surgery Social & Family History - Family History Family Medical History: No Pertinent Family History - Tobacco Use Tobacco Use Status *Q: Current Every Day Tobacco User Years of Tobacco use: 60 Packs/Tins Daily: 1 Second Hand Smoke Exposure: No - Caffeine Use Caffeine Use: Reports: Coffee - Recreational Drug Use Recreational Drug Use: No H&P Review of Systems - Review of Systems: Review Of Systems: See Below General: Reports: Malaise, Weakness, Fatigue, Decreased Appetite. Denies: Fever, Chills HEENT: Denies: Headaches Pulmonary: Reports: Cough, Sputum. Denies: Shortness of Breath, Hemoptysis Cardiovascular: Reports: Chest Pain. Denies: Edema Gastrointestinal: Reports: Constipation. Denies: Abdominal Pain, Hematochezia, Melena, Nausea, Vomiting Genitourinary: Reports: Incontinence. Denies: Dysuria Musculoskeletal: Denies: Neck Pain Skin: Denies: Jaundice Psychiatric: Reports: Confusion Neurological: Reports: Dizziness, Paresthesia, Difficulty Walking Hematologic/Lymphatic: Denies: Easy Bleeding Exam - Exam Exam: See Below - Vital Signs Vital Signs: Last Vital Signs Temp 97.4 F 04/02/21 18:32 Pulse 84 04/02/21 18:32 Resp 18 04/02/21 18:32 BP 142/70 H 04/02/21 18:32 Pulse Ox 93 L 04/02/21 18:32 Weight: 104 lb 14.4 oz - Exam Quality Assessment: No: Supplemental Oxygen General: Alert, Oriented HEENT: Conjunctiva Clear Neck: Supple Lungs: Clear to Auscultation, Normal Respiratory Effort Cardiovascular: Regular Rate, Regular Rhythm GI/Abdominal Exam: Normal Bowel Sounds, Soft, Non-Tender, No Distention (Male) Exam: No: Rash Back Exam: Normal Inspection Extremities: No Pedal Edema Skin: Warm, Dry, Intact Neurological: Other (mildly slurred speech) Neuro Extensive - Mental Status: Alert, Oriented x3 Neuro Extensive - Motor, Sensory, Reflexes: No: Tremor Psychiatric: Alert, Normal Affect, Normal Mood - Patient Data Lab Results Last 24 hrs: Laboratory Results - last 24 hr 04/02/21 04/02/21 04/02/21 Range/Units 20:20 20:20 20:20 WBC 16.0 H (5.0-10.0) 10^3/uL RBC 4.42 L (4.6-6.2) 10^6/uL Hgb 14.6 (14.0-18.0) g/dL Hct 42.6 (40.0-54.0) % MCV 96.4 (80-100) fL MCH 33.0 (27.0-34.0) pg MCHC 34.3 (33.0-35.0) g/dL Plt Count 256 (150-450) 10^3/uL Neut % (Auto) 86.1 H (42.2-75.2) % Lymph % (Auto) 7.5 L (20.5-50.1) % [place] % (Auto) 6.1 (2-8) % Eos % (Auto) 0.2 L (1.0-3.0) % Baso % (Auto) 0.1 (0.0-1.0) % Sodium 140 (136-145) mmol/L Potassium 3.0 L (3.5-5.1) mmol/L Chloride 97 L (98-107) mmol/L Carbon Dioxide 40 H D (21-32) mmol/L Anion Gap 6.0 L (7-13) mEq/L BUN 40 H (7-18) mg/dL Creatinine 2.18 H (0.70-1.30) mg/dL Est Cr Clr Drug Dosing 18.80 mL/min Estimated GFR (MDRD) 29 BUN/Creatinine Ratio 18.3 (No establ ref range) Glucose 138 H (70-99) mg/dL Lactic Acid 1.0 (0.4-2.0) mmol/L Calcium 16.4 H* D (8.5-10.1) mg/dL Magnesium 1.5 L (1.8-2.4) mg/dL Total Bilirubin 0.4 (0.2-1.0) mg/dL AST 25 (15-37) U/L ALT 21 (16-63) U/L Alkaline Phosphatase 40 L (46-116) U/L C-Reactive Protein 12.6 H (0.0-0.9) mg/dL Total Protein 7.8 (6.4-8.2) g/dL Albumin 3.4 (3.4-5.0) g/dL Globulin 4.4 Albumin/Globulin Ratio 0.8 Urine Color (YELLOW) Urine Appearance (CLEAR) Urine pH (5.0-9.0) Ur Specific [place] (1.005-1.030) Urine Protein (NEGATIVE) Urine Glucose (UA) (NEGATIVE) Urine Ketones (NEGATIVE) Urine Occult Blood (NEGATIVE) Urine Nitrite (NEGATIVE) Urine Bilirubin (NEGATIVE) Urine Urobilinogen (0.2-1.0) mg/dL Ur Leukocyte Esterase (NEGATIVE) SARS-CoV-2 RNA (EDY) (NEGATIVE) 04/02/21 04/02/21 Range/Units 22:40 23:05 WBC (5.0-10.0) 10^3/uL RBC (4.6-6.2) 10^6/uL Hgb (14.0-18.0) g/dL Hct (40.0-54.0) % MCV (80-100) fL MCH (27.0-34.0) pg MCHC (33.0-35.0) g/dL Plt Count (150-450) 10^3/uL Neut % (Auto) (42.2-75.2) % Lymph % (Auto) (20.5-50.1) % [place] % (Auto) (2-8) % Eos % (Auto) (1.0-3.0) % Baso % (Auto) (0.0-1.0) % Sodium (136-145) mmol/L Potassium (3.5-5.1) mmol/L Chloride (98-107) mmol/L Carbon Dioxide (21-32) mmol/L Anion Gap (7-13) mEq/L BUN (7-18) mg/dL Creatinine (0.70-1.30) mg/dL Est Cr Clr Drug Dosing mL/min Estimated GFR (MDRD) BUN/Creatinine Ratio (No establ ref range) Glucose (70-99) mg/dL Lactic Acid (0.4-2.0) mmol/L Calcium (8.5-10.1) mg/dL Magnesium (1.8-2.4) mg/dL Total Bilirubin (0.2-1.0) mg/dL AST (15-37) U/L ALT (16-63) U/L Alkaline Phosphatase (46-116) U/L C-Reactive Protein (0.0-0.9) mg/dL Total Protein (6.4-8.2) g/dL Albumin (3.4-5.0) g/dL Globulin Albumin/Globulin Ratio Urine Color Yellow (YELLOW) Urine Appearance Slightly cloudy (CLEAR) Urine pH 6.0 (5.0-9.0) Ur Specific [place] 1.020 (1.005-1.030) Urine Protein Negative (NEGATIVE) Urine Glucose (UA) Negative (NEGATIVE) Urine Ketones Negative (NEGATIVE) Urine Occult Blood Negative (NEGATIVE) Urine Nitrite Negative (NEGATIVE) Urine Bilirubin Negative (NEGATIVE) Urine Urobilinogen 0.2 (0.2-1.0) mg/dL Ur Leukocyte Esterase Negative (NEGATIVE) SARS-CoV-2 RNA (EDY) Negative (NEGATIVE) Result Diagrams: 04/02/21 20:20 04/02/21 20:20 Problem List Initiated/Reviewed/Updated: Yes Orders Last 24hrs: Active Orders 24 hr Category Date Time Status Admission Diagnosis [ADT] Stat ADT 04/02/21 22:50 Ordered Admission Status [Patient Status] [ADT] Routine ADT 04/02/21 22:50 Active Patient Status [ADT] Routine ADT 04/03/21 00:20 Active Cardiac Monitoring [RC] CONTINUOUS Care 04/03/21 00:21 Active Enema [RC] ASDIRECTED Care 04/02/21 22:44 Active Oxygen Therapy [RC] PRN Care 04/03/21 00:20 Active RT Post Treatment Assessment [RC] Click to Edit Care 04/03/21 00:34 Active RT Pre-Treatment Assessment [RC] Click to Edit Care 04/03/21 00:34 Active Up With Assistance [RC] ASDIRECTED Care 04/03/21 00:20 Active VTE/DVT Education [RC] PER UNIT ROUTINE Care 04/03/21 00:20 Active Vital Signs [RC] Q4H Care 04/03/21 00:20 Active OT Evaluation and Treatment [CONS] Routine Cons 04/03/21 00:20 Active PT Evaluation and Treatment [CONS] Routine Cons 04/03/21 00:20 Active CBC W/O DIFF,HEMOGRAM [HEME] AM Lab 04/03/21 05:11 Ordered COMPREHENSIVE METABOLIC PN,CMP [CHEM] AM Lab 04/03/21 05:11 Ordered MAGNESIUM [CHEM] AM Lab 04/03/21 05:11 Ordered MISC TEST AM Lab 04/03/21 05:11 Ordered MISC TEST Routine Lab 04/03/21 00:32 Ordered PHOSPHORUS [CHEM] AM Lab 04/03/21 05:11 Ordered PTH, INTACT [REF] AM Lab 04/03/21 05:11 Ordered TSH ULTRASENSITIVE [CHEM] AM Lab 04/03/21 05:11 Ordered VITAMIN D,25-HYDROXY [CHEM] AM Lab 04/03/21 05:11 Ordered Acetaminophen [TylenoL] Med 04/03/21 00:20 Ordered 650 mg PO Q4H PRN Aspirin [Halfprin] Med 04/03/21 09:00 Ordered 81 mg PO DAILY Budesonide/Formoterol Med 04/03/21 00:45 Ordered 2 puff INH Q12H Docusate Sodium/Sennosides [Senna Plus] Med 04/03/21 09:00 Ordered DOSE tab PO BID Heparin Sodium Med 04/03/21 06:00 Ordered 5,000 units SUBCUT Q8HR Sodium Chloride 0.9% [Normal Saline] 1,000 ml Med 04/03/21 00:30 Ordered IV ASDIRECTED Tiotropium [Spiriva HandiHaler] Med 04/03/21 09:00 Ordered 18 mcg INH DAILY atorvaSTATin [Lipitor] Med 04/03/21 09:00 Ordered 10 mg PO DAILY Resuscitation Status Routine Resus Stat 04/03/21 00:20 Ordered Medication Orders Acetaminophen (Acetaminophen 325 Mg Tab) 650 mg PO Q4H PRN PRN Reason: Pain (Mild 1-3)/fever Aspirin (Aspirin 81 Mg Tab.Ec) 81 mg PO DAILY DARREL Atorvastatin Calcium (Atorvastatin 20 Mg Tab) 10 mg PO DAILY DARREL Heparin Sodium (Porcine) (Heparin Sodium 5,000 Units/Ml Vial) 5,000 units SUBCUT Q8HR DARREL Sodium Chloride (Normal Saline) 1,000 mls @ 200 mls/hr IV ASDIRECTED DARREL Non-Formulary Medication (Budesonide/Formoterol) 2 puff INH Q12H DARREL Senna/Docusate Sodium (Docusate Sodium/Sennosides 50-8.6 Mg Tab) tab PO BID DARREL Tiotropium [place] (Tiotropium Inhaler 18 Mcg Inhalation Powder Cap Kit Of 5) 18 mcg INH DAILY DARREL Assessment/Plan Comment:: #hypercalcemia - high suspicion to be due to malignancy - particularly the RUL lung nodule w/ stigmata of malignancy is concerning - will send further work up w/ phosphorus, 25oh and 1-25oh vit D (to eval for lymphoma), PTH and PTHrp, TSH, SPEP and UPEP - will treat aggressively w/ high rate IVF tonight - likely add lasix tomorrow - may end up needing pomidronate and/or calcitonin in the future #DINORA 2/2 chronic hypercalcemia - as above #constipation 2/2 hypercalcemia - still pending an enema - should improve w/ Ca correction - will add further bowel regimen as needed #proctitis 2/2 constipation - as above #suspicious RUL nodule - will likely need IR biopsy and further chest imaging - [facility] d[facility] re arrangements #HT / HL / COPD - c/w home meds - hold CCB PPX - [facility] DNR/DNI daughter Rubina [phone]
[2021-04-03] MEDS: Sodium Chloride 0.9% 1,000 ML IV SCH ×5 (01:35→22:43)
[2021-04-03] MEDS ORDERED: Sodium Chloride 0.9% 10 ML Syringe FLUSH PRN (05:00)
[2021-04-03] MEDS: Heparin Sodium 5,000 Units/ML Vial SUBCUT SCH ×3 (05:10→21:19)
[2021-04-03] MEDS ORDERED: Magnesium Citrate Solution 296 ML Bottle PO ONE (09:05)
[2021-04-03] MEDS ORDERED: Bisacodyl 5 MG Tab PO ONE (09:05)
[2021-04-03] MEDS: Aspirin 81 MG Tab.EC PO SCH (09:58)
[2021-04-03] MEDS: atorvaSTATin 20 MG Tab PO SCH (09:58)
[2021-04-03] MEDS: Formoterol/Mometasone 200-5 MCG 8.8 GM Inhaler IH SCH ×2 (10:00→21:18)
[2021-04-03] MEDS: Nicotine 7 MG/24 Hr Patch TRDERM SCH (10:00)
[2021-04-03] MEDS: Tiotropium Inhaler 18 MCG Inhalation Powder Cap Kit of 5 INH SCH (10:01)
[2021-04-03] MEDS ORDERED: Potassium Chloride 10 MEQ Tab.ER PO ONE (12:15)
[2021-04-03 18:31] LABS: ANION GAP 9.9 mEq/L (7-13)
[2021-04-03] MEDS: Acetaminophen 325 MG Tab PO PRN (21:41)
[2021-04-04] MEDS ORDERED: Potassium Chloride 10 MEQ Tab.ER PO ONE ×2 (00:41→08:48)
[2021-04-04] MEDS: Sodium Chloride 0.9% 1,000 ML IV SCH ×5 (03:21→23:44)
[2021-04-04] MEDS: Heparin Sodium 5,000 Units/ML Vial SUBCUT SCH ×3 (04:59→22:24)
[2021-04-04 06:49] LABS: ANION GAP 11.1 mEq/L (7-13)
[2021-04-04] MEDS: atorvaSTATin 20 MG Tab PO SCH (11:30)
[2021-04-04] MEDS: Nicotine 7 MG/24 Hr Patch TRDERM SCH (11:33)
[2021-04-04] MEDS: Aspirin 81 MG Tab.EC PO SCH (11:35)
[2021-04-04] MEDS: Formoterol/Mometasone 200-5 MCG 8.8 GM Inhaler IH SCH ×2 (11:48→22:24)
[2021-04-04] MEDS: Tiotropium Inhaler 18 MCG Inhalation Powder Cap Kit of 5 INH SCH (11:49)
[2021-04-04] MEDS: Acetaminophen 325 MG Tab PO PRN ×2 (16:16→22:33)
--- NOTE | 2021-04-04 18:34 | PCM.PN ---
- General Info Date of Service: 04/04/21 Subjective Update: Overnight w/ multiple BMs and urinating frequently. In am sleeping it off. Later confused when he woke up but when oob/chair for dinner back to baseline or even better. - Patient Data Vitals - Most Recent: Last Vital Signs Temp 98.2 F 04/04/21 16:00 Pulse 70 04/04/21 16:00 Resp 24 H 04/04/21 16:00 BP 165/71 H 04/04/21 16:00 Pulse Ox 98 04/04/21 16:00 Weight - Most Recent: 112 lb 4.8 oz I&O - Last 24 Hours: Intake & Output 04/04/21 04/04/21 04/04/21 06:59 14:59 22:59 Intake Total 1131 1320 Balance 1131 1320 Lab Results Last 24 Hours: Laboratory Results - last 24 hr 04/03/21 04/03/21 04/04/21 Range/Units 06:20 18:08 06:15 WBC 11.4 H (5.0-10.0) 10^3/uL RBC 3.69 L (4.6-6.2) 10^6/uL Hgb 12.1 L (14.0-18.0) g/dL Hct 35.4 L (40.0-54.0) % MCV 95.9 (80-100) fL MCH 32.8 (27.0-34.0) pg MCHC 34.2 (33.0-35.0) g/dL Plt Count 246 (150-450) 10^3/uL Neut % (Auto) 75.1 (42.2-75.2) % Lymph % (Auto) 13.4 L (20.5-50.1) % Dawes % (Auto) 10.7 H (2-8) % Eos % (Auto) 0.7 L (1.0-3.0) % Baso % (Auto) 0.1 (0.0-1.0) % Sodium 140 (136-145) mmol/L Potassium 2.9 L (3.5-5.1) mmol/L Chloride 104 (98-107) mmol/L Carbon Dioxide 29 (21-32) mmol/L Anion Gap 9.9 (7-13) mEq/L BUN 31 H (7-18) mg/dL Creatinine 1.81 H (0.70-1.30) mg/dL Est Cr Clr Drug Dosing 22.53 mL/min Estimated GFR (MDRD) 36 BUN/Creatinine Ratio (No establ ref range) Glucose 100 H (70-99) mg/dL Calcium 11.6 H D (8.5-10.1) mg/dL Total Bilirubin (0.2-1.0) mg/dL AST (15-37) U/L ALT (16-63) U/L Alkaline Phosphatase (46-116) U/L Total Protein (6.4-8.2) g/dL Albumin (3.4-5.0) g/dL Globulin Albumin/Globulin Ratio Vitamin D 25-Hydroxy 89 (30-100) ng/mL 04/04/21 Range/Units 06:15 WBC (5.0-10.0) 10^3/uL RBC (4.6-6.2) 10^6/uL Hgb (14.0-18.0) g/dL Hct (40.0-54.0) % MCV (80-100) fL MCH (27.0-34.0) pg MCHC (33.0-35.0) g/dL Plt Count (150-450) 10^3/uL Neut % (Auto) (42.2-75.2) % Lymph % (Auto) (20.5-50.1) % Dawes % (Auto) (2-8) % Eos % (Auto) (1.0-3.0) % Baso % (Auto) (0.0-1.0) % Sodium 140 (136-145) mmol/L Potassium 3.1 L (3.5-5.1) mmol/L Chloride 107 (98-107) mmol/L Carbon Dioxide 25 (21-32) mmol/L Anion Gap 11.1 (7-13) mEq/L BUN 26 H (7-18) mg/dL Creatinine 1.75 H (0.70-1.30) mg/dL Est Cr Clr Drug Dosing 25.06 mL/min Estimated GFR (MDRD) 38 BUN/Creatinine Ratio 14.9 (No establ ref range) Glucose 82 (70-99) mg/dL Calcium 10.1 D (8.5-10.1) mg/dL Total Bilirubin 0.3 (0.2-1.0) mg/dL AST 29 (15-37) U/L ALT 17 (16-63) U/L Alkaline Phosphatase 32 L (46-116) U/L Total Protein 5.4 L (6.4-8.2) g/dL Albumin 2.3 L (3.4-5.0) g/dL Globulin 3.1 Albumin/Globulin Ratio 0.74 Vitamin D 25-Hydroxy (30-100) ng/mL Med Orders - Current: Current Medications Acetaminophen (Acetaminophen 325 Mg Tab) 650 mg PO Q4H PRN PRN Reason: Pain (Mild 1-3)/fever Last Admin: 04/04/21 16:16 Dose: 650 mg Documented by: Aspirin (Aspirin 81 Mg Tab.Ec) 81 mg PO DAILY [facility] Last Admin: 04/04/21 11:35 Dose: 81 mg Documented by: Atorvastatin Calcium (Atorvastatin 20 Mg Tab) 10 mg PO DAILY [facility] Last Admin: 04/04/21 11:30 Dose: 10 mg Documented by: Heparin Sodium (Porcine) (Heparin Sodium 5,000 Units/Ml Vial) 5,000 units SUBCUT Q8HR [facility] Last Admin: 04/04/21 14:05 Dose: 5,000 units Documented by: Sodium Chloride (Normal Saline) 1,000 mls @ 200 mls/hr IV ASDIRECTED [facility] Last Admin: 04/04/21 13:35 Dose: 200 mls/hr Documented by: Miscellaneous Information (Check Nicotine Patch) 1 ea TRDERM BEDTIME [facility] Last Admin: 04/03/21 21:19 Dose: 1 ea Documented by: Mometasone Furoate/Formoterol Fumar (Formoterol/Mometasone 200-5 Mcg 8.8 Gm Inhaler) 2 puff IH BID [facility] Last Admin: 04/04/21 11:48 Dose: 2 puff Documented by: Nicotine (Nicotine 7 Mg/24 Hr Patch) 7 mg TRDERM DAILY [facility] Last Admin: 04/04/21 11:33 Dose: 7 mg Documented by: Senna/Docusate Sodium (Docusate Sodium/Sennosides 50-8.6 Mg Tab) 1 tab PO BID [facility] Last Admin: 04/04/21 11:35 Dose: 1 tab Documented by: Sodium Chloride (Sodium Chloride 0.9% 10 Ml Syringe) 10 ml FLUSH ASDIRECTED PRN PRN Reason: Keep Vein Open Tiotropium Hawley (Tiotropium Inhaler 18 Mcg Inhalation Powder Cap Kit Of 5) 18 mcg INH DAILY [facility] Last Admin: 04/04/21 11:49 Dose: 18 mcg Documented by: Discontinued Medications Bisacodyl (Bisacodyl 5 Mg Tab) 10 mg PO ONETIME ONE Stop: 04/03/21 09:06 Last Admin: 04/03/21 10:12 Dose: 10 mg Documented by: Sodium Chloride (Normal Saline) 1,000 mls @ 500 mls/hr IV .BOLUS ONE Stop: 04/02/21 23:07 Last Admin: 04/02/21 22:28 Dose: 225 mls/hr Documented by: Magnesium Sulfate 2 gm/ Premix 50 mls @ 25 mls/hr IV ONETIME ONE Stop: 04/02/21 23:07 Last Admin: 04/02/21 22:28 Dose: 25 mls/hr Documented by: Potassium Chloride 20 meq/ (Premix) 100 mls @ 50 mls/hr IV ONETIME ONE Stop: 04/02/21 23:07 Last Admin: 04/02/21 22:53 Dose: 50 mls/hr Documented by: Levofloxacin/Dextrose 750 mg/ (Premix) 150 mls @ 100 mls/hr IV ONETIME ONE Stop: 04/03/21 00:01 Last Admin: 04/02/21 23:43 Dose: 100 mls/hr Documented by: Magnesium Citrate (Magnesium Citrate Solution 296 Ml Bottle) 296 ml PO ONETIME ONE Stop: 04/03/21 09:06 Last Admin: 04/03/21 10:12 Dose: 296 ml Documented by: Mometasone Furoate/Formoterol Fumar (Formoterol/Mometasone 200-5 Mcg 8.8 Gm Inhaler) 2 puff IH Q12H [facility] Last Admin: 04/03/21 03:01 Dose: Not Given Documented by: Potassium Chloride (Potassium Chloride 10 Meq Tab.Er) 40 meq PO ONETIME ONE Stop: 04/03/21 12:16 Last Admin: 04/03/21 13:23 Dose: 40 meq Documented by: Potassium Chloride (Potassium Chloride 10 Meq Tab.Er) 40 meq PO ONETIME ONE Stop: 04/04/21 00:42 Last Admin: 04/04/21 01:30 Dose: 40 meq Documented by: Potassium Chloride (Potassium Chloride 10 Meq Tab.Er) 40 meq PO ONETIME ONE Stop: 04/04/21 08:49 Last Admin: 04/04/21 11:34 Dose: 40 meq Documented by: - Exam Quality Assessment: No: Supplemental Oxygen General: Alert, Oriented HEENT: Pupils Equal Neck: Supple Lungs: Clear to Auscultation, Normal Respiratory Effort Cardiovascular: Regular Rate, Regular Rhythm GI/Abdominal Exam: Normal Bowel Sounds, Soft, Non-Tender, No Distention Back Exam: Normal Inspection Extremities: No Pedal Edema Skin: Warm, Dry, Intact Wound/Incisions: Healing Well Neurological: No New Focal Deficit Psy/Mental Status: Alert, Normal Affect, Normal Mood - Patient Data Lab Results Last 24 hrs: Laboratory Results - last 24 hr 04/03/21 04/03/21 04/04/21 Range/Units 06:20 18:08 06:15 WBC 11.4 H (5.0-10.0) 10^3/uL RBC 3.69 L (4.6-6.2) 10^6/uL Hgb 12.1 L (14.0-18.0) g/dL Hct 35.4 L (40.0-54.0) % MCV 95.9 (80-100) fL MCH 32.8 (27.0-34.0) pg MCHC 34.2 (33.0-35.0) g/dL Plt Count 246 (150-450) 10^3/uL Neut % (Auto) 75.1 (42.2-75.2) % Lymph % (Auto) 13.4 L (20.5-50.1) % Dawes % (Auto) 10.7 H (2-8) % Eos % (Auto) 0.7 L (1.0-3.0) % Baso % (Auto) 0.1 (0.0-1.0) % Sodium 140 (136-145) mmol/L Potassium 2.9 L (3.5-5.1) mmol/L Chloride 104 (98-107) mmol/L Carbon Dioxide 29 (21-32) mmol/L Anion Gap 9.9 (7-13) mEq/L BUN 31 H (7-18) mg/dL Creatinine 1.81 H (0.70-1.30) mg/dL Est Cr Clr Drug Dosing 22.53 mL/min Estimated GFR (MDRD) 36 BUN/Creatinine Ratio (No establ ref range) Glucose 100 H (70-99) mg/dL Calcium 11.6 H D (8.5-10.1) mg/dL Total Bilirubin (0.2-1.0) mg/dL AST (15-37) U/L ALT (16-63) U/L Alkaline Phosphatase (46-116) U/L Total Protein (6.4-8.2) g/dL Albumin (3.4-5.0) g/dL Globulin Albumin/Globulin Ratio Vitamin D 25-Hydroxy 89 (30-100) ng/mL // Range/Units 06:15 WBC (5.0-10.0) 10^3/uL RBC (4.6-6.2) 10^6/uL Hgb (14.0-18.0) g/dL Hct (40.0-54.0) % MCV (80-100) fL MCH (27.0-34.0) pg MCHC (33.0-35.0) g/dL Plt Count (150-450) 10^3/uL Neut % (Auto) (42.2-75.2) % Lymph % (Auto) (20.5-50.1) % Dawes % (Auto) (2-8) % Eos % (Auto) (1.0-3.0) % Baso % (Auto) (0.0-1.0) % Sodium 140 (136-145) mmol/L Potassium 3.1 L (3.5-5.1) mmol/L Chloride 107 (98-107) mmol/L Carbon Dioxide 25 (21-32) mmol/L Anion Gap 11.1 (7-13) mEq/L BUN 26 H (7-18) mg/dL Creatinine 1.75 H (0.70-1.30) mg/dL Est Cr Clr Drug Dosing 25.06 mL/min Estimated GFR (MDRD) 38 BUN/Creatinine Ratio 14.9 (No establ ref range) Glucose 82 (70-99) mg/dL Calcium 10.1 D (8.5-10.1) mg/dL Total Bilirubin 0.3 (0.2-1.0) mg/dL AST 29 (15-37) U/L ALT 17 (16-63) U/L Alkaline Phosphatase 32 L (46-116) U/L Total Protein 5.4 L (6.4-8.2) g/dL Albumin 2.3 L (3.4-5.0) g/dL Globulin 3.1 Albumin/Globulin Ratio 0.74 Vitamin D 25-Hydroxy (30-100) ng/mL Result Diagrams: 04/04/21 06:15 04/04/21 06:15 Sepsis Event Note - Evaluation Sepsis Screening Result: No Definite Risk - Focused Exam Vital Signs: Vital Signs Temp Pulse Resp BP Pulse Ox 04/04/21 16:00 98.2 F 70 24 H 165/71 H 98 04/04/21 11:44 97.6 F 68 18 176/77 H 98 04/04/21 08:00 97.9 F 82 16 114/93 H 94 L - Problem List Review Problem List Initiated/Reviewed/Updated: Yes - My Orders Last 24 Hours: My Active Orders 04/03/21 21:00 Check Patch 1 ea TRDERM BEDTIME - Plan Plan:: #hypercalcemia - high suspicion to be due to malignancy - particularly the RUL lung nodule w/ stigmata of malignancy is concerning (CT done in 01/2020) - [facility] and pt was informed of finding but turned down pursuing dx - TSH and 25 oh is normal - still pendin-25oh vit D (to eval for lymphoma), PTH and PTHrp, SPEP and UPEP - Ca is improving precipitously w/ aggressive IVF alone - will cut IVF rate to 100 - d/w daughter re anticipated d/c in next 24-48h - remainder of work up can be completed w/ outpatient [facility] providers #DINORA 2/2 chronic hypercalcemia - as above - improving #constipation 2/2 hypercalcemia - now s/p multiple BMs #proctitis 2/2 constipation - as above #suspicious RUL nodule - d/w pt and daughter extensively - they would want to pursue further non invasive work up for dx but likely would not want surgery or aggressive chemo - would consider milder immunotherapy if offered #HT / HL / COPD - c/w home meds - hold CCB PPX - [facility] DNR/DNI daughter Rubina [phone]
[2021-04-05] MEDS: Sodium Chloride 0.9% 1,000 ML IV SCH ×4 (04:33→19:59)
[2021-04-05] MEDS: Heparin Sodium 5,000 Units/ML Vial SUBCUT SCH ×3 (05:13→22:00)
[2021-04-05 06:42] LABS: ANION GAP 15.5 mEq/L (7-13)
[2021-04-05] MEDS ORDERED: Albuterol 6.7 GM Inhaler INH PRN (08:34)
--- NOTE | 2021-04-05 08:50 | PCM.SN.2 ---
- Free Text/Narrative Note: START OF DOCTOR JULIO PROGRESS NOTE Subjective: The patient really endorses no complaints at this time. He denies fever, rigors, nausea, vomiting, cough, wheeze, abdominal pain, chest pain, dyspnea. He states that he is having regular bowel movements. I explained to the patient his current medical condition and plan of care and have answered all of his questions Objective: General: -Alert -No acute distress -No dyspnea -No tachypnea Heart: -Regular rate -Regular rhythm -No murmurs -No gallops -No rubs Lungs: -No wheeze -No rhonchi -No rales Abdomen: -Normal bowel sounds in all four quadrants -No rebound -No guarding -No tenderness Extremities: -2/4 pulse in all four extremities -No clubbing -No cyanosis -No edema Additional Details / Additional Findings / Exceptions / Miscellaneous: Pertinent Laboratory Results / Pertinent Radiology Results / Pertinent Diagnostic Results / Pertinent Vital Signs: Vital signs stable. Potassium 2.5, creatinine 1.48, calcium 10.02 Assessment / Plan: Constipation. Colace/senna: One tab p.o. twice daily Proctitis. Likely sequelae of constipation History of right upper lobe pulmonary nodule and left lower lobe pulmonary nodule. Outpatient follow-up with interventional radiology as the patient will require biopsy Malnutrition. Check prealbumin level, B12 level, folate level. Dietitian consult pending Anemia. Will monitor hemoglobin levels intermittently. Check serum ferritin, iron panel, fecal occult blood Hypokalemia. Will monitor potassium levels intermittently supplement as necessary Acute renal insufficiency. Will monitor creatinine level intermittently. IV normal saline at 200 mL/h Hypophosphatemia. Will monitor phosphorus levels intermittently and supplement as necessary Hypomagnesemia. Will monitor magnesium levels intermittently and supplement as necessary Hypercalcemia. Fosamax 70 mg p.o. q. Tuesday plus Miacalcin nasal spray 1 spray in one nostril daily. Currently pending: PTH, PTH related peptide, HTAI level, Bence-Long protein, ionized calcium level. Vitamin D level within normal notes. This may be sequelae of what appears to be pulmonary malignancy Diverticulosis 3.3 cm distal descending thoracic aortic aneurysm. Outpatient monitoring with his primary care physician or provider Osteopenia. Fosamax 70 mg p.o. q. Tuesday Chronic bilateral renal artery aneurysm. Outpatient monitoring with his primary care physician or provider Coronary artery disease. Aspirin 81 mg p.o. daily plus Lipitor 10 mg at bedtime COPD. Dulera 2 puffs twice daily plus Spiriva 18 mcg inhaled daily Smoker. Patient becomes regarding smoking cessation. Nicotine patch 7 mg daily Hypertension Hyperlipidemia. Lipitor 10 mg p.o. nightly Postherpetic neuralgia. Gabapentin 600 mg p.o. 3 times daily History of alcohol use Degenerative disc disease Grade 1 diastolic dysfunction Peripheral vascular disease. Aspirin 81 mg p.o. daily plus Lipitor 10 mg p.o. nightly Hepatic steatosis DVT prophylaxis. Heparin 5000 units subcutaneously every 8 hours Disposition: I anticipate discharge on April 06, 2021 with normalization of the patient's creatinine. END OF DOCTOR EMAMIS PROGRESS NOTE
[2021-04-05] MEDS: Aspirin 81 MG Tab.EC PO SCH (09:14)
[2021-04-05] MEDS: atorvaSTATin 20 MG Tab PO SCH (09:14)
[2021-04-05] MEDS: Calcitonin (Salmon) Nasal Spray 3.7 ML Bottle NAS SCH (09:18)
[2021-04-05] MEDS: Gabapentin 300 MG Cap PO SCH ×3 (09:19→21:58)
[2021-04-05] MEDS: Potassium Chloride 10 MEQ Tab.ER PO SCH ×4 (09:19→14:43)
[2021-04-05] MEDS: Nicotine 7 MG/24 Hr Patch TRDERM SCH (09:20)
[2021-04-05] MEDS: Formoterol/Mometasone 200-5 MCG 8.8 GM Inhaler IH SCH ×2 (09:22→21:59)
[2021-04-05] MEDS: Tiotropium Inhaler 18 MCG Inhalation Powder Cap Kit of 5 INH SCH (09:28)
[2021-04-05] MEDS: Acetaminophen 325 MG Tab PO PRN (22:05)
[2021-04-06] MEDS: Sodium Chloride 0.9% 1,000 ML IV SCH ×2 (00:31→05:22)
[2021-04-06] MEDS: Heparin Sodium 5,000 Units/ML Vial SUBCUT SCH ×3 (06:16→22:54)
[2021-04-06 07:20] LABS: ANION GAP 16.6 mEq/L (7-13)
--- NOTE | 2021-04-06 07:52 | PCM.SN.2 ---
- Free Text/Narrative Note: START OF DOCTOR EMAMIS PROGRESS NOTE Subjective: The patient indicates that he is feeling well overall on this day. Upon general review of system, he denies fever, rigors, nausea, vomiting, cough, abdominal pain, chest pain. He states that he frequently exhibits wheezing due to his history of smoking. He admits to mild dyspnea however, again, indicates this is his norm. Explained to the patient his current medical condition and plan of care and I have answered all of his questions Objective: General: -Alert -No acute distress -No dyspnea -No tachypnea Heart: -Regular rate -Regular rhythm -No murmurs -No gallops -No rubs Lungs: -No wheeze -No rhonchi -No rales Abdomen: -Normal bowel sounds in all four quadrants -No rebound -No guarding -No tenderness Extremities: -2/4 pulse in all four extremities -No clubbing -No cyanosis -No edema Additional Details / Additional Findings / Exceptions / Miscellaneous: Pertinent Laboratory Results / Pertinent Radiology Results / Pertinent Diagnostic Results / Pertinent Vital Signs: Blood pressure 1 6472, pulse 6 7, hemoglobin 10.8, sodium 146, Phosphorus 1 Assessment / Plan: Constipation. Colace/senna: One tab p.o. twice daily Proctitis. Likely sequelae of constipation History of right upper lobe pulmonary nodule and left lower lobe pulmonary nodule. Outpatient follow-up with interventional radiology as the patient will require biopsy Malnutrition. Prealbumin level pending. Patient was folate deficient. B12 within normal notes. Dietitian consult pending Anemia. Will monitor hemoglobin levels intermittently. Check serum ferritin, iron panel, fecal occult blood Hypokalemia. Will monitor potassium levels intermittently supplement as necessary Acute renal insufficiency. Will monitor creatinine level intermittently. IV half-normal saline at 75 mils per hour Hypophosphatemia. Will monitor phosphorus levels intermittently and supplement as necessary. Neutra-Phos 250 mg p.o. 4 times daily Hypomagnesemia. Will monitor magnesium levels intermittently and supplement as necessary Hypercalcemia. Resolved. Will monitor calcium levels intermittently. IV half- normal saline at 75 mL's per hour plus Fosamax 70 mg p.o. q. Tuesday plus Miacalcin nasal spray 1 spray in one nostril daily. Currently pending: PTH, PTH related peptide, THAI level, Bence-Long protein, ionized calcium level. Vitamin D level within normal notes. This may be sequelae of what appears to be pulmonary malignancy Diverticulosis 3.3 cm distal descending thoracic aortic aneurysm. Outpatient monitoring with his primary care physician or provider Osteopenia. Fosamax 70 mg p.o. q. Tuesday Chronic bilateral renal artery aneurysm. Outpatient monitoring with his primary care physician or provider Coronary artery disease. Aspirin 81 mg p.o. daily plus Lipitor 10 mg at bedtime COPD. Dulera 2 puffs twice daily plus Spiriva 18 mcg inhaled daily Smoker. Patient becomes regarding smoking cessation. Nicotine patch 7 mg daily Hypertension. Hydralazine 50 mg p.o. 3 times daily Folate deficiency. Folic acid 1 mg p.o. daily Hyperlipidemia. Lipitor 10 mg p.o. nightly Postherpetic neuralgia. Gabapentin 600 mg p.o. 3 times daily History of alcohol use Degenerative disc disease Grade 1 diastolic dysfunction Peripheral vascular disease. Aspirin 81 mg p.o. daily plus Lipitor 10 mg p.o. nightly Hepatic steatosis DVT prophylaxis. Heparin 5000 units subcutaneously every 8 hours Disposition: Anticipate discharge on April 07, 2021 if his hypomagnesia and hypophosphatemia have resolved END OF DOCTOR EMAMIS PROGRESS NOTE
[2021-04-06] MEDS: Sodium Chloride 0.45% 1,000 ML IV SCH ×2 (08:04→22:46)
[2021-04-06] MEDS: Magnesium Sulfate/Water 2 GM in Premix Bag 1 BAG IV SCH ×2 (08:05→11:30)
[2021-04-06] MEDS: hydrALAZINE 25 MG Tab PO SCH ×3 (08:20→23:25)
[2021-04-06] MEDS: Phosphorus #1 250 MG Tab PO SCH ×4 (08:20→22:49)
[2021-04-06] MEDS: Gabapentin 300 MG Cap PO SCH ×3 (08:20→22:49)
[2021-04-06] MEDS: Aspirin 81 MG Tab.EC PO SCH (08:21)
[2021-04-06] MEDS: Folic Acid 1 MG Tab PO SCH (08:21)
[2021-04-06] MEDS: Nicotine 7 MG/24 Hr Patch TRDERM SCH (08:21)
[2021-04-06] MEDS: atorvaSTATin 20 MG Tab PO SCH (08:21)
[2021-04-06] MEDS: Formoterol/Mometasone 200-5 MCG 8.8 GM Inhaler IH SCH ×2 (08:26→22:49)
[2021-04-06] MEDS: Calcitonin (Salmon) Nasal Spray 3.7 ML Bottle NAS SCH (08:27)
[2021-04-06] MEDS: Tiotropium Inhaler 18 MCG Inhalation Powder Cap Kit of 5 INH SCH (08:30)
[2021-04-07] MEDS: Heparin Sodium 5,000 Units/ML Vial SUBCUT SCH ×3 (05:57→22:31)
[2021-04-07] MEDS ORDERED: ALENDRONATE SODIUM 70 MG PO SCH (06:00)
[2021-04-07 07:23] LABS: ANION GAP 16.5 mEq/L (7-13)
--- NOTE | 2021-04-07 07:46 | PCM.SN.2 ---
- Free Text/Narrative Note: START OF DOCTOR JULIO PROGRESS NOTE Subjective: The patient complains of cough and dyspnea however he states is a chronic and these are present at his baseline state of health. The patient denies fever, rigors, nausea, vomiting, wheeze, abdominal pain, chest pain, or any other constitutional complaints. I explained to the patient his current medical condition and plan of care and I have answered all of his questions Objective: General: -Alert -No acute distress -No dyspnea -No tachypnea Heart: -Regular rate -Regular rhythm -No murmurs -No gallops -No rubs Lungs: -No wheeze -No rhonchi -No rales Abdomen: -Normal bowel sounds in all four quadrants -No rebound -No guarding -No tenderness Extremities: -2/4 pulse in all four extremities -No clubbing -No cyanosis -No edema Additional Details / Additional Findings / Exceptions / Miscellaneous: Pertinent Laboratory Results / Pertinent Radiology Results / Pertinent Diagnostic Results / Pertinent Vital Signs: Respirations 24, potassium 2.5, phosphorus 1.8 Assessment / Plan: Constipation. Colace/senna: One tab p.o. twice daily Proctitis. Likely sequelae of constipation History of right upper lobe pulmonary nodule and left lower lobe pulmonary nodule. Outpatient follow-up with interventional radiology as the patient will require biopsy Malnutrition. Prealbumin level pending. Patient was folate deficient. B12 within normal notes. Dietitian consult pending Anemia. Will monitor hemoglobin levels intermittently. Check serum ferritin, iron panel, fecal occult blood Hypokalemia. Will monitor potassium levels intermittently supplement as necessary Acute renal insufficiency. Will monitor creatinine level intermittently. IV half-normal saline at 75 mils per hour Hypophosphatemia. Will monitor phosphorus levels intermittently and supplement as necessary. Neutra-Phos 250 mg p.o. 4 times daily Hypomagnesemia. Will monitor magnesium levels intermittently and supplement as necessary Hypercalcemia. Resolved. Will monitor calcium levels intermittently. IV half- normal saline at 75 mL's per hour plus Fosamax 70 mg p.o. q. Tuesday plus Miacalcin nasal spray 1 spray in one nostril daily. Currently pending: PTH, PTH related peptide, THAI level, Bence-Long protein, ionized calcium level. Vitamin D level within normal notes. This may be sequelae of what appears to be pulmonary malignancy Diverticulosis 3.3 cm distal descending thoracic aortic aneurysm. Outpatient monitoring with his primary care physician or provider Osteopenia. Fosamax 70 mg p.o. q. Tuesday Chronic bilateral renal artery aneurysm. Outpatient monitoring with his primary care physician or provider Coronary artery disease. Aspirin 81 mg p.o. daily plus Lipitor 10 mg at bedtime COPD. Dulera 2 puffs twice daily plus Spiriva 18 mcg inhaled daily Smoker. Patient becomes regarding smoking cessation. Nicotine patch 7 mg daily Hypertension. Hydralazine 50 mg p.o. 3 times daily Folate deficiency. Folic acid 1 mg p.o. daily Hyperlipidemia. Lipitor 10 mg p.o. nightly Postherpetic neuralgia. Gabapentin 600 mg p.o. 3 times daily History of alcohol use Degenerative disc disease Grade 1 diastolic dysfunction Peripheral vascular disease. Aspirin 81 mg p.o. daily plus Lipitor 10 mg p.o. nightly Hepatic steatosis DVT prophylaxis. Heparin 5000 units subcutaneously every 8 hours Disposition: The patient is medically stable for discharge on this day of April 07, 2021. I will discuss the patient's case with case management/social work END OF DOCTOR JULIO PROGRESS NOTE
[2021-04-07] MEDS: Gabapentin 300 MG Cap PO SCH ×3 (08:22→22:19)
[2021-04-07] MEDS: Phosphorus #1 250 MG Tab PO SCH ×4 (08:22→22:18)
[2021-04-07] MEDS: hydrALAZINE 25 MG Tab PO SCH ×3 (08:23→23:41)
[2021-04-07] MEDS: Aspirin 81 MG Tab.EC PO SCH (08:23)
[2021-04-07] MEDS: atorvaSTATin 20 MG Tab PO SCH (08:23)
[2021-04-07] MEDS: Folic Acid 1 MG Tab PO SCH (08:23)
[2021-04-07] MEDS: Nicotine 7 MG/24 Hr Patch TRDERM SCH (08:24)
[2021-04-07] MEDS: Potassium Chloride 10 MEQ Tab.ER PO SCH ×5 (08:29→23:36)
[2021-04-07] MEDS: Calcitonin (Salmon) Nasal Spray 3.7 ML Bottle NAS SCH (08:35)
[2021-04-07] MEDS: Formoterol/Mometasone 200-5 MCG 8.8 GM Inhaler IH SCH ×2 (08:35→22:26)
[2021-04-07] MEDS: Tiotropium Inhaler 18 MCG Inhalation Powder Cap Kit of 5 INH SCH ×2 (08:39→10:42)
[2021-04-07] MEDS: Sodium Chloride 0.45% 1,000 ML IV SCH (11:39)
[2021-04-08] MEDS: Sodium Chloride 0.45% 1,000 ML IV SCH ×2 (01:17→15:17)
[2021-04-08] MEDS: Heparin Sodium 5,000 Units/ML Vial SUBCUT SCH ×3 (06:28→22:38)
--- NOTE | 2021-04-08 07:29 | PCM.SN.2 ---
- Free Text/Narrative Note: START OF DOCTOR JULIO PROGRESS NOTE Subjective: The patient endorses no complaints at this time. He denies fever, rigors, nausea, vomiting, cough, wheeze, abdominal pain, chest pain, dyspnea, or any other constitutional complaints. I explained to the patient his current medical condition and plan of care and I have answered all of his questions Objective: General: -Alert -No acute distress -No dyspnea -No tachypnea Heart: -Regular rate -Regular rhythm -No murmurs -No gallops -No rubs Lungs: -No wheeze -No rhonchi -No rales Abdomen: -Normal bowel sounds in all four quadrants -No rebound -No guarding -No tenderness Extremities: -2/4 pulse in all four extremities -No clubbing -No cyanosis -No edema Additional Details / Additional Findings / Exceptions / Miscellaneous: Pertinent Laboratory Results / Pertinent Radiology Results / Pertinent Diagnostic Results / Pertinent Vital Signs: Vital signs stable, potassium 3.4 Assessment / Plan: Constipation. Colace/senna: One tab p.o. twice daily Proctitis. Likely sequelae of constipation History of right upper lobe pulmonary nodule and left lower lobe pulmonary nodule. Outpatient follow-up with interventional radiology as the patient will require biopsy Malnutrition. Patient was folate deficient. B12 within normal notes. Dietiti an consult pending Anemia. Will monitor hemoglobin levels intermittently. Ferritin within normal limits, TIBC low, iron levels within normal limits, fecal occult blood negative Hypokalemia. Will monitor potassium levels intermittently supplement as necessary. K. Dur 40 M EQ p.o. twice daily Acute renal insufficiency. Will monitor creatinine level intermittently. IV half-normal saline at 75 mils per hour Hypophosphatemia. Will monitor phosphorus levels intermittently and supplement as necessary. Neutra-Phos 250 mg p.o. 4 times daily Hypomagnesemia. Will monitor magnesium levels intermittently and supplement as necessary Hypercalcemia. Resolved. Will monitor calcium levels intermittently. IV half- normal saline at 75 mL's per hour plus Fosamax 70 mg p.o. q. Tuesday plus Miaca lcin nasal spray 1 spray in one nostril daily. Currently pending: PTH, PTH related peptide, THAI level, Bence-Long protein, ionized calcium level. Vitamin D level within normal notes. This may be sequelae of what appears to be pulmonary malignancy Diverticulosis 3.3 cm distal descending thoracic aortic aneurysm. Outpatient monitoring with his primary care physician or provider Osteopenia. Fosamax 70 mg p.o. q. Tuesday Chronic bilateral renal artery aneurysm. Outpatient monitoring with his primary care physician or provider Coronary artery disease. Aspirin 81 mg p.o. daily plus Lipitor 10 mg at bedtime COPD. Dulera 2 puffs twice daily plus Spiriva 18 mcg inhaled daily Smoker. Patient becomes regarding smoking cessation. Nicotine patch 7 mg daily Hypertension. Hydralazine 50 mg p.o. 3 times daily Folate deficiency. Folic acid 1 mg p.o. daily Hyperlipidemia. Lipitor 10 mg p.o. nightly Postherpetic neuralgia. Gabapentin 600 mg p.o. 3 times daily History of alcohol use Degenerative disc disease Grade 1 diastolic dysfunction Peripheral vascular disease. Aspirin 81 mg p.o. daily plus Lipitor 10 mg p.o. nightly Hepatic steatosis DVT prophylaxis. Heparin 5000 units subcutaneously every 8 hours Disposition: The patient is medically stable for discharge. I will discuss the patient's case with case management/social work END OF DOCTOR JULIO PROGRESS NOTE
[2021-04-08] MEDS: Phosphorus #1 250 MG Tab PO SCH ×5 (08:30→22:38)
[2021-04-08] MEDS: Aspirin 81 MG Tab.EC PO SCH (08:30)
[2021-04-08] MEDS: atorvaSTATin 20 MG Tab PO SCH (08:30)
[2021-04-08] MEDS: hydrALAZINE 25 MG Tab PO SCH ×2 (08:31→15:18)
[2021-04-08] MEDS: Potassium Chloride 10 MEQ Tab.ER PO SCH ×2 (08:31→17:36)
[2021-04-08] MEDS: Gabapentin 300 MG Cap PO SCH ×3 (08:31→22:38)
[2021-04-08] MEDS: Folic Acid 1 MG Tab PO SCH (08:32)
[2021-04-08] MEDS: Nicotine 7 MG/24 Hr Patch TRDERM SCH (08:32)
[2021-04-08] MEDS: Calcitonin (Salmon) Nasal Spray 3.7 ML Bottle NAS SCH (08:34)
[2021-04-08] MEDS: Tiotropium Inhaler 18 MCG Inhalation Powder Cap Kit of 5 INH SCH (08:35)
[2021-04-08] MEDS: Formoterol/Mometasone 200-5 MCG 8.8 GM Inhaler IH SCH ×2 (08:36→22:40)
[2021-04-08] MEDS ORDERED: ALENDRONATE 70 MG PO SCH (11:00)
[2021-04-08] MEDS: Magnesium Sulfate/Water 2 GM in Premix Bag 1 BAG IV SCH ×2 (11:17→13:49)
[2021-04-08] MEDS: Acetaminophen 325 MG Tab PO PRN ×2 (17:47→22:43)
[2021-04-08] MEDS ORDERED: Magnesium Sulfate/D5W 1 GM/100 ML BAG IV ONE (23:30)
[2021-04-09] MEDS: hydrALAZINE 25 MG Tab PO SCH ×2 (00:35→09:51)
--- NOTE | 2021-04-09 08:02 | PCM.SN.2 ---
- Free Text/Narrative Note: START OF DOCTOR EMAMIS DISCHARGE SUMMARY Date of Admission: April 02, 2021 Date of Discharge: 7:39 AM on April 09, 2021 Primary Diagnosis: Constipation Secondary Diagnosis: Proctitis, likely sequelae of constipation History of right upper lobe pulmonary nodule and left lower lobe pulmonary nodule Malnutrition Anemia Hypokalemia Acute renal insufficiency Hypophosphatemia Hypomagnesemia Hypercalcemia, resolved Diverticulosis 3.3 cm distal descending thoracic aortic aneurysm Osteopenia Chronic bilateral renal artery aneurysm Coronary artery disease COPD Smoker Hypertension Folate deficiency Hyperlipidemia Postherpetic neuralgia History of alcohol abuse Degenerative disc disease Grade 1 diastolic dysfunction Peripheral vascular disease Hepatic steatosis Consultations: None Condition on Discharge: Stable Disposition: The patient will be discharged to swing bed status for rehabilitation Upon swing bed discharge, the patient will be advised to follow-up with interventional radiology within 10 days of discharge for assessment for biopsy of history of right upper lobe pulmonary nodule and left lower lobe pulmonary nodule The patient will be advised to follow-up with his primary care physician or provider within 10 days of discharge for his assessment of history of 3.3 cm distal descending thoracic aortic aneurysm as well as his chronic bilateral renal artery aneurysm Discharge Medications: Mobic 7.5 mg p.o. twice daily as needed pain Lipitor 10 mg p.o. nightly Spiriva 18 mc inhalation daily SennaS: 1 tab p.o. twice daily K. Dur 40 M EQ p.o. twice daily Neutra-Phos 500 mg p.o. 4 times daily Nicotine patch 7 mg daily Dulera: 200/5 mc puff twice daily Hydralazine 50 mg p.o. every 8 hours Gabapentin 600 mg p.o. 3 times daily Forecasted 1 mg p.o. daily Miacalcin nasal spray: 1 spray in 1 nostril daily Aspirin 81 mg p.o. daily Alendronate 70 mg p.o. q. Tuesday Proventil HFA: 90 mcg/spray: 2 puffs every 6 hours as needed shortness of breath or wheeze END OF DOCTOR EMAMIS DISCHARGE SUMMARY
[2021-04-09] MEDS: Heparin Sodium 5,000 Units/ML Vial SUBCUT SCH (08:12)
[2021-04-09 08:29] VITALS: BP 160/69; PULSE 72
[2021-04-09] MEDS: Gabapentin 300 MG Cap PO SCH (09:48)
[2021-04-09] MEDS: Aspirin 81 MG Tab.EC PO SCH (09:48)
[2021-04-09] MEDS: Phosphorus #1 250 MG Tab PO SCH (09:48)
[2021-04-09] MEDS: Potassium Chloride 10 MEQ Tab.ER PO SCH (09:48)
[2021-04-09] MEDS: Folic Acid 1 MG Tab PO SCH (09:48)
[2021-04-09] MEDS: atorvaSTATin 20 MG Tab PO SCH (09:49)
[2021-04-09] MEDS: Nicotine 7 MG/24 Hr Patch TRDERM SCH (09:52)
[2021-04-09] MEDS: Formoterol/Mometasone 200-5 MCG 8.8 GM Inhaler IH SCH (10:00)
[2021-04-09] MEDS: Calcitonin (Salmon) Nasal Spray 3.7 ML Bottle NAS SCH (10:01)
[2021-04-09] MEDS: Tiotropium Inhaler 18 MCG Inhalation Powder Cap Kit of 5 INH SCH (10:01)
[2021-04-13] MEDS ORDERED: ALENDRONATE 70 MG PO SCH (06:00)
--- NOTE | 2021-04-28 07:39 | EDM.PDOC ---
ED HPI GENERAL MEDICAL PROBLEM - General Chief Complaint: Gastrointestinal Problem Stated Complaint: CONSTIPATION VOMMITING Time Seen by Provider: 04/02/21 19:00 Source of Information: Reports: Patient, Family (Daughter), RN, RN Notes Reviewed History Limitations: Reports: No Limitations - History of Present Illness INITIAL COMMENTS - FREE TEXT/NARRATIVE: Fly is a 80 y/o male who presents to the ED via personal vehicle with daughter for complaints of constipation and vomiting. The patient reports he has been experiencing constipation for approximately one week, however yesterday he began to vomit and today had two watery stools. The patient denies fever, shaking chills, chest pain, palpitations, dyspepsia, dysuria, or hematuria. He does attest to progressive weakness, general malaise, abdominal pain, and low back pain. The patient's last meal was today but has noticed a markedly decreased appetite over the past week. He has not tried any medications for his symptoms. Back Pain Score (Numeric/FACES): 0 Rectal Pain Score (Numeric/FACES): 0 - Related Data Allergies Allergy/AdvReac Type Severity Reaction Status Date / Time No Known Allergies Allergy Verified 04/12/21 12:44 Home Meds: Home Meds Aspirin [Ecotrin EC] 81 mg PO DAILY 06/10/14 [History] Sennosides/Docusate Sodium [Senna-S] 1 each PO BID 06/08/20 [History] Gabapentin [Neurontin] 600 mg PO TID 06/10/20 [History] Tiotropium [Spiriva HandiHaler] 18 mcg INH DAILY 06/12/20 [History] Albuterol [Proventil HFA] 2 puff INH Q6H PRN 04/03/21 [History] Alendronate Sodium [Fosamax] 70 mg PO .Tuesday04/03/21 [History] Meloxicam [Mobic] 7.5 mg PO BID PRN 04/03/21 [History] Budesonide/Formoterol Fumarate [Symbicort 160-4.5 Mcg Inhaler] 2 puff INH Q12HR 04/09/21 [History] atorvaSTATin [Lipitor] 10 mg PO DAILY 04/09/21 [History] Folic Acid 1 mg PO DAILY 30 Days #30 tablet 04/15/21 [Rx] Magnesium Oxide 1,000 mg PO Q8H 30 Days #360 tablet 04/15/21 [Rx] Potassium Chloride [Klor-Con 10] 40 meq PO BIDMEALS 30 Days #240 tab.er 04/15/21 [Rx] hydrALAZINE [Apresoline] 50 mg PO Q8HR 30 Days #180 tablet 04/15/21 [Rx] Past Medical History HEENT History: Reports: Cataract, Hard of Hearing, Impaired Vision Other HEENT History: wears glasses Cardiovascular History: Reports: High Cholesterol, Hypertension Respiratory History: Reports: COPD, Pneumonia, Recurrent Gastrointestinal History: Reports: Chronic Constipation, Fecal Incontinence, GERD Genitourinary History: Reports: Urinary Incontinence Musculoskeletal History: Reports: Amputation Other Musculoskeletal History: 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 Neurological History: Reports: Other (See Below) Other Neuro History: 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 Psychiatric History: Reports: Addiction Hematologic History: Reports: Iron Deficiency Immunologic History: Reports: None Oncologic (Cancer) History: Reports: None Dermatologic History: Reports: Other (See Below) Other Dermatologic History: blotchy red hands - Infectious Disease History Infectious Disease History: Reports: Chicken Pox, Measles, Mumps, Shingles - Past Surgical History Head Surgeries/Procedures: Reports: None Musculoskeletal Surgical History: Reports: Other (See Below) Other Musculoskeletal Surgeries/Procedures:: left hip and ankle surgery Social & Family History - Family History Family Medical History: No Pertinent Family History - Tobacco Use Tobacco Use Status *Q: Current Every Day Tobacco User Years of Tobacco use: 68 Packs/Tins Daily: 0.5 Second Hand Smoke Exposure: No - Caffeine Use Caffeine Use: Reports: Coffee - Alcohol Use Days Per Week of Alcohol Use: 5 Number of Drinks Per Day: 2 Total Drinks Per Week: 10 - Recreational Drug Use Recreational Drug Use: No ED ROS GENERAL - Review of Systems Review Of Systems: Comprehensive ROS is negative, except as noted in HPI. ED EXAM, GI/ABD - Physical Exam Exam: See Below Exam Limited By: No Limitations General Appearance: Alert, No Apparent Distress, Thin. No: Active Emesis Eyes: Bilateral: Normal Appearance, EOMI Throat/Mouth: Normal Voice, No Airway Compromise. No: Normal Teeth (Poor dentition), Normal Oropharynx (Dry mucous membranes) Head: Atraumatic, Normocephalic Neck: Normal Inspection, Supple, Non-Tender, Full Range of Motion. No: Lymphadenopathy (L), Lymphadenopathy (R) Respiratory/Chest: No Respiratory Distress, Lungs Clear, Normal Breath Sounds, No Accessory Muscle Use, Chest Non-Tender Cardiovascular: Normal Peripheral Pulses, Regular Rate, Rhythm, No Edema, No Gallop, No JVD, No Murmur, No Rub GI/Abdominal Exam: Soft, No Distention, No Abnormal Bruit, No Mass, Pelvis Stable, Tender (To palpation), Abnormal Bowel Sounds (Hyperactive bowel sounds) (Male) Exam: No Hernia, Normal Inspection. No: Penile Lesions Rectal (Males) Exam: Fecal Impaction. No: Hemorrhoids Back Exam: Normal Inspection, Full Range of Motion. No: CVA Tenderness (L), CVA Tenderness (R) Extremities: Normal Inspection, Normal Range of Motion, Non-Tender, Normal Capillary Refill, No Pedal Edema Neurological: Alert, Oriented, CN II-XII Intact, Normal Cognition, No Motor/Sensory Deficits Psychiatric: Normal Affect, Normal Mood Skin Exam: Warm, Dry, Intact, Normal Color, No Rash. No: Jaundice, Mottled Course - Vital Signs Last Recorded V/S: Last Vital Signs Temp 98.2 F 04/09/21 08:28 Pulse 72 04/09/21 08:28 Resp 20 04/09/21 08:28 BP 160/69 H 04/09/21 09:51 Pulse Ox 96 04/09/21 08:28 - Orders/Labs/Meds Labs: Laboratory Tests 04/02/21 04/02/21 04/02/21 Range/Units 20:20 20:20 20:20 WBC 16.0 H (5.0-10.0) 10^3/uL RBC 4.42 L (4.6-6.2) 10^6/uL Hgb 14.6 (14.0-18.0) g/dL Hct 42.6 (40.0-54.0) % MCV 96.4 (80-100) fL MCH 33.0 (27.0-34.0) pg MCHC 34.3 (33.0-35.0) g/dL Plt Count 256 (150-450) 10^3/uL Neut % (Auto) 86.1 H (42.2-75.2) % Lymph % (Auto) 7.5 L (20.5-50.1) % [place] % (Auto) 6.1 (2-8) % Eos % (Auto) 0.2 L (1.0-3.0) % Baso % (Auto) 0.1 (0.0-1.0) % Sodium 140 (136-145) mmol/L Potassium 3.0 L (3.5-5.1) mmol/L Chloride 97 L (98-107) mmol/L Carbon Dioxide 40 H D (21-32) mmol/L Anion Gap 6.0 L (7-13) mEq/L BUN 40 H (7-18) mg/dL Creatinine 2.18 H (0.70-1.30) mg/dL Est Cr Clr Drug Dosing 18.80 mL/min Estimated GFR (MDRD) 29 BUN/Creatinine Ratio 18.3 (No establ ref range) Glucose 138 H (70-99) mg/dL Lactic Acid 1.0 (0.4-2.0) mmol/L Calcium 16.4 H* D (8.5-10.1) mg/dL Magnesium 1.5 L (1.8-2.4) mg/dL Total Bilirubin 0.4 (0.2-1.0) mg/dL AST 25 (15-37) U/L ALT 21 (16-63) U/L Alkaline Phosphatase 40 L (46-116) U/L C-Reactive Protein 12.6 H (0.0-0.9) mg/dL Total Protein 7.8 (6.4-8.2) g/dL Albumin 3.4 (3.4-5.0) g/dL Globulin 4.4 Albumin/Globulin Ratio 0.8 Urine Color (YELLOW) Urine Appearance (CLEAR) Urine pH (5.0-9.0) Ur Specific [place] (1.005-1.030) Urine Protein (NEGATIVE) Urine Glucose (UA) (NEGATIVE) Urine Ketones (NEGATIVE) Urine Occult Blood (NEGATIVE) Urine Nitrite (NEGATIVE) Urine Bilirubin (NEGATIVE) Urine Urobilinogen (0.2-1.0) mg/dL Ur Leukocyte Esterase (NEGATIVE) 04/02/21 Range/Units 22:40 WBC (5.0-10.0) 10^3/uL RBC (4.6-6.2) 10^6/uL Hgb (14.0-18.0) g/dL Hct (40.0-54.0) % MCV (80-100) fL MCH (27.0-34.0) pg MCHC (33.0-35.0) g/dL Plt Count (150-450) 10^3/uL Neut % (Auto) (42.2-75.2) % Lymph % (Auto) (20.5-50.1) % [place] % (Auto) (2-8) % Eos % (Auto) (1.0-3.0) % Baso % (Auto) (0.0-1.0) % Sodium (136-145) mmol/L Potassium (3.5-5.1) mmol/L Chloride (98-107) mmol/L Carbon Dioxide (21-32) mmol/L Anion Gap (7-13) mEq/L BUN (7-18) mg/dL Creatinine (0.70-1.30) mg/dL Est Cr Clr Drug Dosing mL/min Estimated GFR (MDRD) BUN/Creatinine Ratio (No establ ref range) Glucose (70-99) mg/dL Lactic Acid (0.4-2.0) mmol/L Calcium (8.5-10.1) mg/dL Magnesium (1.8-2.4) mg/dL Total Bilirubin (0.2-1.0) mg/dL AST (15-37) U/L ALT (16-63) U/L Alkaline Phosphatase (46-116) U/L C-Reactive Protein (0.0-0.9) mg/dL Total Protein (6.4-8.2) g/dL Albumin (3.4-5.0) g/dL Globulin Albumin/Globulin Ratio Urine Color Yellow (YELLOW) Urine Appearance Slightly cloudy (CLEAR) Urine pH 6.0 (5.0-9.0) Ur Specific [place] 1.020 (1.005-1.030) Urine Protein Negative (NEGATIVE) Urine Glucose (UA) Negative (NEGATIVE) Urine Ketones Negative (NEGATIVE) Urine Occult Blood Negative (NEGATIVE) Urine Nitrite Negative (NEGATIVE) Urine Bilirubin Negative (NEGATIVE) Urine Urobilinogen 0.2 (0.2-1.0) mg/dL Ur Leukocyte Esterase Negative (NEGATIVE) Meds: Medications Discontinued Medications Generic Name Dose Route Start Last Admin Trade Name Freq PRN Reason Stop Dose Admin Acetaminophen 650 mg 05/28/21 00:20 04/08/21 22:43 Acetaminophen 325 Mg Tab PO 650 mg Q4H PRN Administration Pain (Mild 1-3)/fever Albuterol 0 gm 04/05/21 08:34 04/06/21 22:53 Albuterol 6.7 Gm Inhaler INH 2 puff Q6H PRN Administration Shortness of Breath Aspirin 81 mg 04/03/21 09:00 04/09/21 09:48 Aspirin 81 Mg Tab.Ec PO 81 mg DAILY DARREL Administration Atorvastatin Calcium 10 mg 04/03/21 09:00 04/09/21 09:49 Atorvastatin 20 Mg Tab PO 10 mg DAILY DARREL Administration Bisacodyl 10 mg 04/03/21 09:05 04/03/21 10:12 Bisacodyl 5 Mg Tab PO 04/03/21 09:06 10 mg ONETIME ONE Administration Calcitonin [place] 0 ml 04/05/21 09:00 04/09/21 10:01 Calcitonin ([place]) Nasal [place] 3.7 Ml Bottle LISA 1 spray DAILY DARREL Administration Folic Acid 1 mg 04/06/21 09:00 04/09/21 09:48 Folic Acid 1 Mg Tab PO 1 mg DAILY DARREL Administration Gabapentin 600 mg 04/05/21 09:00 04/09/21 09:48 Gabapentin 300 Mg Cap PO 600 mg TID DARREL Administration Heparin Sodium (Porcine) 5,000 units 04/03/21 06:00 04/09/21 08:12 Heparin Sodium 5,000 Units/Ml Vial SUBCUT Not Given Q8HR DARREL Hydralazine HCl 50 mg 04/06/21 08:00 04/09/21 09:51 Hydralazine 25 Mg Tab PO 50 mg Q8H DARREL Administration Sodium Chloride 1,000 mls @ 500 mls/hr 04/02/21 21:08 04/02/21 22:28 Normal Saline IV 04/02/21 23:07 225 mls/hr .BOLUS ONE Administration Magnesium Sulfate 2 gm/ Premix 50 mls @ 25 mls/hr 04/02/21 21:08 04/02/21 22:28 IV 04/02/21 23:07 25 mls/hr ONETIME ONE Administration Potassium Chloride 20 meq/ 100 mls @ 50 mls/hr 04/02/21 21:08 04/02/21 22:53 Premix IV 04/02/21 23:07 50 mls/hr ONETIME ONE Administration Levofloxacin/Dextrose 750 mg/ 150 mls @ 100 mls/hr 04/02/21 22:32 04/02/21 23:43 Premix IV 04/03/21 00:01 100 mls/hr ONETIME ONE Administration Sodium Chloride 1,000 mls @ 200 mls/hr 04/03/21 00:30 04/06/21 08:18 Normal Saline IV 200 mls/hr ASDIRECTED DARREL Infusion Sodium Chloride 1,000 mls @ 75 mls/hr 04/06/21 07:45 04/09/21 07:18 Sodium Chloride 0.45% IV Infused ASDIRECTED DARREL Infusion Magnesium Sulfate 2 gm/ Premix 50 mls @ 25 mls/hr 04/06/21 08:00 04/06/21 14:32 IV 04/06/21 13:59 Infused Q4H DARREL Infusion Magnesium Sulfate 2 gm/ Premix 50 mls @ 25 mls/hr 04/08/21 10:00 04/08/21 15:50 IV 04/08/21 15:59 Infused Q4H DARREL Infusion Magnesium Sulfate/Dextrose 1 gm in 100 mls @ 100 mls/hr 04/08/21 23:30 04/09/21 00:36 Magnesium Sulfate In D5w 1 Gm/100 Ml IV 04/09/21 00:29 100 mls/hr ONETIME ONE Administration Magnesium Citrate 296 ml 04/03/21 09:05 04/03/21 10:12 Magnesium Citrate Solution 296 Ml Bottle PO 04/03/21 09:06 296 ml ONETIME ONE Administration Miscellaneous Information 1 ea 04/03/21 21:00 04/08/21 22:00 Check Nicotine Patch TRDERM 1 ea BEDTIME DARREL Administration Mometasone Furoate/Formoterol Fumar 2 puff 04/03/21 00:45 04/03/21 03:01 Formoterol/Mometasone 200-5 Mcg 8.8 Gm Inhaler IH Not Given Q12H DARREL Mometasone Furoate/Formoterol Fumar 2 puff 04/03/21 09:00 04/09/21 10:00 Formoterol/Mometasone 200-5 Mcg 8.8 Gm Inhaler IH 2 puff BID DARREL Administration Nicotine 7 mg 04/03/21 09:00 04/09/21 09:52 Nicotine 7 Mg/24 Hr Patch TRDERM 7 mg DAILY DARREL Administration Alendronate Sodium [ 70 mg 04/07/21 06:00 04/07/21 05:58 Fosamax] 70 Mg PO 70 mg Tablet Ptom Q7D DARREL Administration Alendronate [Fosamax 0 each 04/13/21 06:00 ] 70 Mg Tab Ptom PO Mo@0600 DARREL Potassium Chloride 40 meq 04/03/21 12:15 04/03/21 13:23 Potassium Chloride 10 Meq Tab.Er PO 04/03/21 12:16 40 meq ONETIME ONE Administration Potassium Chloride 40 meq 04/04/21 00:41 04/04/21 01:30 Potassium Chloride 10 Meq Tab.Er PO 04/04/21 00:42 40 meq ONETIME ONE Administration Potassium Chloride 40 meq 04/04/21 08:48 04/04/21 11:34 Potassium Chloride 10 Meq Tab.Er PO 04/04/21 08:49 40 meq ONETIME ONE Administration Potassium Chloride 40 meq 04/05/21 09:00 04/05/21 14:43 Potassium Chloride 10 Meq Tab.Er PO 04/05/21 15:01 40 meq Q2H DARREL Administration Potassium Chloride 40 meq 04/07/21 08:30 04/07/21 12:54 Potassium Chloride 10 Meq Tab.Er PO 04/07/21 12:31 40 meq Q2H DARREL Administration Potassium Chloride 40 meq 04/07/21 20:30 04/07/21 23:36 Potassium Chloride 10 Meq Tab.Er PO 04/07/21 22:31 40 meq Q2H DARREL Administration Potassium Chloride 40 meq 04/08/21 08:00 04/09/21 09:48 Potassium Chloride 10 Meq Tab.Er PO 40 meq BIDMEALS DARREL Administration Senna/Docusate Sodium 1 tab 04/03/21 09:00 04/09/21 09:48 Docusate Sodium/Sennosides 50-8.6 Mg Tab PO 1 tab BID DARREL Administration Sodium Chloride 10 ml 04/03/21 05:00 Sodium Chloride 0.9% 10 Ml Syringe FLUSH ASDIRECTED PRN Keep Vein Open Sodium Phosphate 250 mg 04/06/21 09:00 04/08/21 08:30 Phosphorus #1 250 Mg Tab PO 250 mg QID DARREL Administration Sodium Phosphate 500 mg 04/08/21 09:30 04/09/21 09:48 Phosphorus #1 250 Mg Tab PO 500 mg QID DARREL Administration Tiotropium [place] 18 mcg 04/03/21 09:00 04/09/21 10:01 Tiotropium Inhaler 18 Mcg Inhalation Powder Cap Kit Of 5 INH 18 mcg DAILY DARREL Administration - Radiology Interpretation Free Text/Narrative:: [facility] [place] [facility] Final Radiology Report Call: [phone] assistance Online chat: [email or web address] Name: FLY TRAN Age: 80Years M Date: 04/02/2021 SSN: -- : [id number] Study: CT ABDOMEN PELVIS WO CONT Requesting Physician: Jordyn Duarte Images: 400 Addl Studies: Provided Clinical History: r/o small bowel obstruction; WBC 16 constipation for one week with vomiting and now passing watery stools Contrast: Without Contrast Medium: Contrast Amount: Contrast Method: Page 1 of 2 PROCEDURE INFORMATION: Exam: CT Abdomen And Pelvis Without Contrast Exam date and time: 04/02/2021 9:21 PM Age: 80 years old Clinical indication: Constipation; Additional info: R/O small bowel obstruction; Wbc 16. Constipation for one week with vomiting and now passing watery stools TECHNIQUE: Imaging protocol: Computed tomography of the abdomen and pelvis without contrast. Radiation optimization: All CT scans at this facility use at least one of these dose optimization techniques: automated exposure control; mA and/or kV adjustment per patient size (includes targeted exams where dose is matched to clinical indication); or iterative reconstruction. COMPARISON: CT Pelvis wo Cont 06/08/2020 9:49 PM FINDINGS: Lungs: There is a background of centrilobular emphysema and pulmonary fibrosis. Liver: Normal. No mass. Gallbladder and bile ducts: Status post cholecystectomy. Pancreas: Normal. No ductal dilation. Spleen: Normal. No splenomegaly. Adrenal glands: Normal. No mass. Kidneys and ureters: Normal. No hydronephrosis. Stomach and bowel: The moderate stool is present within the sigmoid colon and rectum. A few diverticula are seen the distal descending colon and sigmoid colon. There are no inflammatory changes seen to suggest diverticulitis however. Appendix: No evidence of appendicitis. Intraperitoneal space: See "Vasculature" finding. Vasculature: There is dilatation of the distal descending thoracic aorta at the level of the aortic hiatus measuring 3.3 cm in diameter. There is no evidence for dissection or extravasation. Calcifications are seen within the thoracic and abdominal aorta, iliac arteries and femoral arteries bilaterally and within branches of the renal arteries bilaterally. Lymph nodes: Unremarkable. No enlarged lymph nodes. Urinary bladder: Unremarkable as visualized. Reproductive: Unremarkable as visualized. Bones/joints: Unremarkable. No acute fracture. Soft tissues: Unremarkable. Other findings: There are some strandy opacity seen in the perirectal fat and fascia, findings could represent mild inflammatory changes and proctitis. IMPRESSION: 1. Moderate stool is seen within the sigmoid colon and rectum. There are some strandy opacity seen in the perirectal fascia, findings that could represent mild inflammatory changes and proctitis. 2. Mild diverticulosis of the descending and sigmoid colon. 3. 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 Thank you for allowing us to participate in the care of your patient. Dictated and Authenticated by: Rodger Arboleda MD 04/02/2021 10:15 PM Central Time ([place] & [place]) - Re-Assessments/Exams Free Text/Narrative Re-Assessment/Exam: 04/02/21 Findings of examination, lab work, and imaging reviewed with patient and daughter. Discussed concerns within lab work and imaging which would require further treatment via hospitalization. Patient and daughter are agreeable to admission. NS bolus initiated at 225 mL/hr. K and Mg replacements started. Levofloxacin initiated for proctitis. Case discussed with Dr. Pandey who kindly agreed to accept patient for admission. Departure - Departure Time of Disposition: 23:40 Disposition: Admitted As Inpatient 68 Clinical Impression: Hypercalcemia, Acute kidney injury, Acute proctitis, Diverticulosis of colon Constipation Qualifiers: Constipation type: unspecified constipation type Qualified Code(s): K59.00 - Constipation, unspecified - Discharge Information Sepsis Event Note (ED) - Evaluation Sepsis Screening Result: No Definite Risk
== END 2021-04-09 09:15 | disposition swing bed (61) | DRG 683 ==
LOC: DL.ED 17:01 → DL.MS 22:50
PROVIDERS: ADMIT Internal Medicine; ATTEND Internal Medicine
DX: N17.9 Acute kidney failure, unspecified (principal); E46 Unspecified protein-calorie malnutrition; B02.29 Other postherpetic nervous system involvement; K57.90 Diverticulosis of intestine, part unspecified, without perforation or abscess without bleeding; K62.89 Other specified diseases of anus and rectum; E83.52 Hypercalcemia; K59.00 Constipation, unspecified; F17.210 Nicotine dependence, cigarettes, uncomplicated; E78.5 Hyperlipidemia, unspecified; H54.7 Unspecified visual loss; D64.9 Anemia, unspecified; E87.6 Hypokalemia; E83.39 Other disorders of phosphorus metabolism; E83.42 Hypomagnesemia; H91.90 Unspecified hearing loss, unspecified ear; R91.8 Other nonspecific abnormal finding of lung field; M85.80 Other specified disorders of bone density and structure, unspecified site; I25.10 Atherosclerotic heart disease of native coronary artery without angina pectoris; K76.0 Fatty (change of) liver, not elsewhere classified; I73.9 Peripheral vascular disease, unspecified; E53.8 Deficiency of other specified B group vitamins; F17.200 Nicotine dependence, unspecified, uncomplicated; I72.2 Aneurysm of renal artery; I71.2 Thoracic aortic aneurysm, without rupture; E78.00 Pure hypercholesterolemia, unspecified; I10 Essential (primary) hypertension; J44.9 Chronic obstructive pulmonary disease, unspecified; K59.09 Other constipation; Z87.01 Personal history of pneumonia (recurrent); K21.9 Gastro-esophageal reflux disease without esophagitis; Z98.890 Other specified postprocedural states; Z68.21 Body mass index [BMI] 21.0-21.9, adult; R32 Unspecified urinary incontinence; R15.9 Full incontinence of feces; Z89.021 Acquired absence of right finger(s); Z79.82 Long term (current) use of aspirin; Z79.51 Long term (current) use of inhaled steroids; Z79.899 Other long term (current) drug therapy; Z20.822 Contact with and (suspected) exposure to COVID-19
CPT/HCPCS: 36415; 74176; 80048; 80053; 81003; 82164; 82272; 82306; 82330; 82397; 82607; 82728; 82746; 83540; 83550; 83605; 83735; 83970; 84100; 84132; 84134; 84155; 84156; 84165; 84166; 84443; 85025; 85027; 86140; 86335; 97110-GP; 97166-GO; 97530-GO; 97535-GO; 99223; 99232; 99238; A9270-GY; J1644; J1956; J3475; J3480; J7030; U0002

== ENCOUNTER 2021-04-08 09:07 | Inpatient (IN) | payer MEDICARE, MEDICAID ==
[2021-04-09] MEDS ORDERED: Sodium Chloride 0.9% 10 ML Syringe FLUSH PRN (09:28)
[2021-04-09] MEDS ORDERED: Ondansetron 4 MG/2 ML SDV IVPUSH PRN (09:28)
[2021-04-09] MEDS ORDERED: Albuterol 6.7 GM Inhaler INH PRN (09:33)
--- NOTE | 2021-04-09 09:37 | PCM.SN.2 ---
- Free Text/Narrative Note: START OF DOCTOR EMAMIS HISTORY AND PHYSICAL / CONSULTATION NOTE Chief Complaint: Generalized weakness History of Present Illness: The patient is being admitted to swing bed status on this day of April 09, 2021 for generalized weakness. Patient being admitted to swing bed after acute inpatient hospital stay for constipation from 07/03/2021 until April 09, 2021. At the present time the patient endorses no complaints. He denies fever, rigors, nausea, vomiting, cough, wheeze, abdominal pain, chest pain, dyspnea, or any other constitutional complaints. The patient presents for further evaluation Surgical History: Per medical records: Left hip surgery, left ankle surgery Family History: Per medical records: No pertinent family history Social History: Tobacco: Active smoker Alcohol: Patient has remote history of alcohol use Caffeine: Coffee Drugs: No Allergies: No known drug allergies Code Status: DNR, DNI Pertinent Laboratory Results / Pertinent Radiology Results / Pertinent Diagnostic Results / Pertinent Vital Signs: Vital signs pending input into the EMR/BHR system. Physical Examination: General: -Alert -No acute distress -No dyspnea -No tachypnea Head: -Atraumatic -Normocephalic Eyes: -Pupils equally round and reactive to light and accommodation -Extraocular muscles intact Neurological: -Cranial nerves II-XII intact Neck: -No jugular venous distention -No thyromegaly -No cervical lymphadenopathy Heart: -Regular rate -Regular rhythm -No murmurs -No gallops -No rubs Lungs: -No wheeze -No rhonchi -No rales Abdomen: -Normal bowel sounds in all four quadrants -No rebound -No guarding -No tenderness Extremities: -2/4 pulse in all four extremities -No clubbing -No cyanosis -No edema -No calf tenderness present bilaterally -Negative Homans sign bilaterally Musculoskeletal: -5/5 bilateral upper extremity strength -5/5 bilateral lower extremity strength -Sensorium of bilateral upper extremities are equal and intact -Sensorium of bilateral lower extremities are equal and intact Additional Details / Additional Findings / Exceptions / Miscellaneous: Assessment / Plan: Admission to swing bed status for generalized weakness. Physical therapy and Occupational Therapy Constipation. SennaS: One tab p.o. twice daily Proctitis. Likely sequelae of constipation History of right upper lobe pulmonary nodule and left lower lobe pulmonary nodule. Outpatient follow-up with interventional radiology as the patient will require biopsy Malnutrition. Patient was folate deficient. B12 within normal notes. Anemia. Will monitor hemoglobin levels intermittently. Ferritin within normal limits, TIBC low, iron levels within normal limits, fecal occult blood negative Hypokalemia. Will monitor potassium levels intermittently supplement as necessary. K. Dur 40 M EQ p.o. twice daily Acute renal insufficiency. Will monitor creatinine level intermittently Hypophosphatemia. Will monitor phosphorus levels intermittently and supplement as necessary. Neutra-Phos 250 mg p.o. 4 times daily Hypomagnesemia. Will monitor magnesium levels intermittently and supplement as necessary Hypercalcemia. Resolved. Will monitor calcium levels intermittently. Fosamax 70 mg p.o. q. Tuesday plus Miacalcin nasal spray 1 spray in one nostril daily. Currently pending: PTH, PTH related peptide, THAI level, Bence-Long protein, ionized calcium level. Vitamin D level within normal notes. This may be sequelae of what appears to be pulmonary malignancy Diverticulosis 3.3 cm distal descending thoracic aortic aneurysm. Outpatient monitoring with his primary care physician or provider Osteopenia. Fosamax 70 mg p.o. q. Tuesday Chronic bilateral renal artery aneurysm. Outpatient monitoring with his primary care physician or provider Coronary artery disease. Aspirin 81 mg p.o. daily plus Lipitor 10 mg at bedtime COPD. Dulera 2 puffs twice daily plus Spiriva 18 mcg inhaled daily Smoker. Patient becomes regarding smoking cessation. Nicotine patch 7 mg daily Hypertension. Hydralazine 50 mg p.o. 3 times daily Folate deficiency. Folic acid 1 mg p.o. daily Hyperlipidemia. Lipitor 10 mg p.o. nightly Postherpetic neuralgia. Gabapentin 600 mg p.o. 3 times daily History of alcohol use Degenerative disc disease Grade 1 diastolic dysfunction Peripheral vascular disease. Aspirin 81 mg p.o. daily plus Lipitor 10 mg p.o. nightly Hepatic steatosis DVT prophylaxis. Heparin 5000 units subcutaneously every 12 hours Disposition: END OF DOCTOR EMAMIS HISTORY AND PHYSICAL / CONSULTATION NOTE
[2021-04-09] MEDS ORDERED: Ondansetron 4 MG Tab.DIS PO PRN (10:52)
[2021-04-09] MEDS: Heparin Sodium 5,000 Units/ML Vial SUBCUT SCH ×2 (13:16→20:38)
[2021-04-09] MEDS: Gabapentin 300 MG Cap PO SCH ×2 (13:17→20:37)
[2021-04-09] MEDS: Phosphorus #1 250 MG Tab PO SCH ×3 (13:17→20:36)
[2021-04-09] MEDS: hydrALAZINE 25 MG Tab PO SCH ×2 (16:33→22:18)
[2021-04-09] MEDS: Acetaminophen 325 MG Tab PO PRN (16:36)
[2021-04-09] MEDS: Potassium Chloride 10 MEQ Tab.ER PO SCH (18:44)
[2021-04-09] MEDS: Formoterol/Mometasone 200-5 MCG 8.8 GM Inhaler IH SCH (20:40)
[2021-04-09] MEDS ORDERED: Non-Formulary Medication 1 Each (Budesonide/Formoterol Fumarate 6 GM Hfa.Aer.Ad) INH SCH (21:00)
[2021-04-10] MEDS: hydrALAZINE 25 MG Tab PO SCH ×3 (06:07→22:14)
[2021-04-10 07:14] LABS: ANION GAP 17.2 mEq/L (7-13); CHLORIDE,CL 112 mmol/L (98-107); SODIUM,NA 145 mmol/L (136-145)
[2021-04-10] MEDS: Aspirin 81 MG Tab.EC PO SCH (08:33)
[2021-04-10] MEDS: Potassium Chloride 10 MEQ Tab.ER PO SCH ×2 (08:33→22:17)
[2021-04-10] MEDS: atorvaSTATin 20 MG Tab PO SCH (08:34)
[2021-04-10] MEDS: Phosphorus #1 250 MG Tab PO SCH ×4 (08:34→22:14)
[2021-04-10] MEDS: Folic Acid 1 MG Tab PO SCH (08:34)
[2021-04-10] MEDS: Gabapentin 300 MG Cap PO SCH ×3 (08:34→22:14)
[2021-04-10] MEDS: Heparin Sodium 5,000 Units/ML Vial SUBCUT SCH ×2 (08:35→22:17)
[2021-04-10] MEDS: Nicotine 7 MG/24 Hr Patch TRDERM SCH (08:35)
[2021-04-10] MEDS: Tiotropium Inhaler 18 MCG Inhalation Powder Cap Kit of 5 INH SCH (08:41)
[2021-04-10] MEDS: Formoterol/Mometasone 200-5 MCG 8.8 GM Inhaler IH SCH ×2 (08:42→22:19)
[2021-04-10] MEDS ORDERED: Calcitonin (Salmon) Nasal Spray 3.7 ML Bottle NAS SCH (09:00)
[2021-04-10] MEDS ORDERED: atorvaSTATin 10 MG Tab PO SCH (09:00)
[2021-04-10] MEDS: Acetaminophen 325 MG Tab PO PRN (15:02)
[2021-04-10] MEDS ORDERED: MELOXICAM 15 MG PO PRN (16:23)
[2021-04-11] MEDS: hydrALAZINE 25 MG Tab PO SCH ×3 (06:24→22:59)
[2021-04-11] MEDS: Potassium Chloride 10 MEQ Tab.ER PO SCH ×2 (07:54→17:48)
[2021-04-11] MEDS: Formoterol/Mometasone 200-5 MCG 8.8 GM Inhaler IH SCH ×2 (09:45→20:24)
[2021-04-11] MEDS: Gabapentin 300 MG Cap PO SCH ×3 (09:46→20:22)
[2021-04-11] MEDS: Aspirin 81 MG Tab.EC PO SCH (09:47)
[2021-04-11] MEDS: Phosphorus #1 250 MG Tab PO SCH ×4 (09:47→20:22)
[2021-04-11] MEDS: atorvaSTATin 20 MG Tab PO SCH (09:47)
[2021-04-11] MEDS: Folic Acid 1 MG Tab PO SCH (09:47)
[2021-04-11] MEDS: Nicotine 7 MG/24 Hr Patch TRDERM SCH (09:49)
[2021-04-11] MEDS: Heparin Sodium 5,000 Units/ML Vial SUBCUT SCH ×2 (09:52→20:39)
[2021-04-11] MEDS: Tiotropium Inhaler 18 MCG Inhalation Powder Cap Kit of 5 INH SCH (09:54)
[2021-04-11] MEDS: Acetaminophen 325 MG Tab PO PRN (23:01)
[2021-04-12] MEDS: hydrALAZINE 25 MG Tab PO SCH ×3 (06:29→21:40)
[2021-04-12 06:56] LABS: ANION GAP 16.4 mEq/L (7-13); CHLORIDE,CL 111 mmol/L (98-107); SODIUM,NA 146 mmol/L (136-145)
--- NOTE | 2021-04-12 09:11 | CR ---
PROCEDURE INFORMATION: Exam: XR Chest Exam date and time: 04/12/2021 8:15 AM Age: 80 years old Clinical indication: Fever; Patient HX: Lung nodule TECHNIQUE: Imaging protocol: XR of the chest. Views: 2 views. COMPARISON: CR Chest 2V 01/29/2017 2:39:31 PM FINDINGS: Lungs: The lungs are again hyperinflated. There is mild bibasilar atelectasis and scattered scarring. Previously noted nodule in the right upper lobe is presently not evident. Pleural spaces: A small left pleural effusion has developed. The right costophrenic angle is sharp. No pneumothorax is identified. Heart/Mediastinum: The cardiomediastinal silhouette is fairly stable in appearance. Bones/joints: Degenerative changes again involve the spine and shoulders. Degenerative changes again involve the spine. There is similar compression of a midthoracic vertebral body. IMPRESSION: 1. Hyperinflation, as on 01/29/17. 2. Previous right upper lobe nodule presently not evident. If nodules are being followed with CT, would defer to follow-up recommendations from this imaging. 3. Small new left pleural effusion.
[2021-04-12] MEDS: Nicotine 7 MG/24 Hr Patch TRDERM SCH (09:26)
[2021-04-12] MEDS: Heparin Sodium 5,000 Units/ML Vial SUBCUT SCH ×2 (09:27→21:40)
[2021-04-12] MEDS: Gabapentin 300 MG Cap PO SCH ×3 (09:28→21:40)
[2021-04-12] MEDS: Folic Acid 1 MG Tab PO SCH (09:29)
[2021-04-12] MEDS: Phosphorus #1 250 MG Tab PO SCH ×4 (09:29→21:40)
[2021-04-12] MEDS: Aspirin 81 MG Tab.EC PO SCH (09:29)
[2021-04-12] MEDS: Potassium Chloride 10 MEQ Tab.ER PO SCH ×2 (09:29→17:12)
[2021-04-12] MEDS: atorvaSTATin 20 MG Tab PO SCH (09:30)
[2021-04-12] MEDS: Formoterol/Mometasone 200-5 MCG 8.8 GM Inhaler IH SCH ×2 (09:31→21:40)
[2021-04-12] MEDS: Acetaminophen 325 MG Tab PO PRN (14:02)
[2021-04-12] MEDS: Tiotropium Inhaler 18 MCG Inhalation Powder Cap Kit of 5 INH SCH (14:03)
[2021-04-13] MEDS: hydrALAZINE 25 MG Tab PO SCH ×3 (05:50→21:59)
[2021-04-13] MEDS ORDERED: ALENDRONATE 70 MG PO SCH (06:00)
--- NOTE | 2021-04-13 07:23 | PCM.SN.2 ---
- Free Text/Narrative Note: START OF DOCTOR JUDYMINevin PROGRESS NOTE Subjective: The patient endorses no complaints at this time. He denies fever, rigors, nausea, vomiting, cough, wheeze, abdominal pain, chest pain, dyspnea, or any other constitutional complaints. He states that he is eating well and he has been having regular bowel movements. He states that he has been participating of in therapy with physical therapy/Occupational Therapy. I explained to the patient his current medical condition and plan of care and I have answered all his questions Objective: General: -Alert -No acute distress -No dyspnea -No tachypnea Heart: -Regular rate -Regular rhythm -No murmurs -No gallops -No rubs Lungs: -No wheeze -No rhonchi -No rales Abdomen: -Normal bowel sounds in all four quadrants -No rebound -No guarding -No tenderness Extremities: -2/4 pulse in all four extremities -No clubbing -No cyanosis -No edema Additional Details / Additional Findings / Exceptions / Miscellaneous: Pertinent Laboratory Results / Pertinent Radiology Results / Pertinent Diagnostic Results / Pertinent Vital Signs: Blood pressure 157/73 however it is labile Assessment / Plan: Admission to swing bed status for generalized weakness. Physical therapy and Occupational Therapy Constipation. SennaS: One tab p.o. twice daily Proctitis. Likely sequelae of constipation History of right upper lobe pulmonary nodule and left lower lobe pulmonary nodule. Outpatient follow-up with interventional radiology as the patient will require biopsy Malnutrition. Patient was folate deficient. B12 within normal notes. Anemia. Will monitor hemoglobin levels intermittently. Ferritin within normal limits, TIBC low, iron levels within normal limits, fecal occult blood negative Hypokalemia. Will monitor potassium levels intermittently supplement as necessary. K. Dur 40 M EQ p.o. twice daily Acute renal insufficiency. Will monitor creatinine level intermittently Hypophosphatemia. Will monitor phosphorus levels intermittently and supplement as necessary. Neutra-Phos 250 mg p.o. 4 times daily Hypomagnesemia. Will monitor magnesium levels intermittently and supplement as necessary. Magnesium oxide 500 mg p.o. 3 times daily Hypercalcemia. Resolved. Will monitor calcium levels intermittently. Fosamax 70 mg p.o. q. Tuesday. Currently pending: PTH, PTH related peptide, THAI level, Bence-Long protein, ionized calcium level. Vitamin D level within normal notes. This may be sequelae of what appears to be pulmonary malignancy Hypocalcemia, iatrogenic. Will monitor calcium levels intermittently and correct as necessary Diverticulosis 3.3 cm distal descending thoracic aortic aneurysm. Outpatient monitoring with his primary care physician or provider Osteopenia. Fosamax 70 mg p.o. q. Tuesday Chronic bilateral renal artery aneurysm. Outpatient monitoring with his primary care physician or provider Coronary artery disease. Aspirin 81 mg p.o. daily plus Lipitor 10 mg at bedtime COPD. Dulera 2 puffs twice daily plus Spiriva 18 mcg inhaled daily Smoker. Patient becomes regarding smoking cessation. Nicotine patch 7 mg daily Hypertension. Hydralazine 50 mg p.o. 3 times daily Folate deficiency. Folic acid 1 mg p.o. daily Hyperlipidemia. Lipitor 10 mg p.o. nightly Postherpetic neuralgia. Gabapentin 600 mg p.o. 3 times daily History of alcohol use Degenerative disc disease Grade 1 diastolic dysfunction Peripheral vascular disease. Aspirin 81 mg p.o. daily plus Lipitor 10 mg p.o. nightly Hepatic steatosis DVT prophylaxis. Heparin 5000 units subcutaneously every 12 hours Disposition: END OF DOCTOR EMAMIS PROGRESS NOTE
[2021-04-13] MEDS: Potassium Chloride 10 MEQ Tab.ER PO SCH ×2 (07:59→17:26)
[2021-04-13] MEDS: Tiotropium Inhaler 18 MCG Inhalation Powder Cap Kit of 5 INH SCH (09:38)
[2021-04-13] MEDS: Formoterol/Mometasone 200-5 MCG 8.8 GM Inhaler IH SCH ×2 (09:41→22:02)
[2021-04-13] MEDS: atorvaSTATin 20 MG Tab PO SCH (09:42)
[2021-04-13] MEDS: Folic Acid 1 MG Tab PO SCH (09:45)
[2021-04-13] MEDS: Aspirin 81 MG Tab.EC PO SCH (09:45)
[2021-04-13] MEDS: Gabapentin 300 MG Cap PO SCH ×3 (09:46→22:00)
[2021-04-13] MEDS: Nicotine 7 MG/24 Hr Patch TRDERM SCH (09:53)
[2021-04-13] MEDS: Heparin Sodium 5,000 Units/ML Vial SUBCUT SCH ×2 (09:54→22:01)
[2021-04-13] MEDS: Phosphorus #1 250 MG Tab PO SCH ×4 (11:08→22:05)
[2021-04-14] MEDS: hydrALAZINE 25 MG Tab PO SCH ×3 (05:52→22:47)
[2021-04-14 06:59] LABS: ANION GAP 14.3 mEq/L (7-13); CHLORIDE,CL 107 mmol/L (98-107); SODIUM,NA 138 mmol/L (136-145)
[2021-04-14] MEDS: Potassium Chloride 10 MEQ Tab.ER PO SCH ×2 (08:06→17:17)
[2021-04-14] MEDS: Phosphorus #1 250 MG Tab PO SCH ×4 (09:11→20:39)
[2021-04-14] MEDS: Tiotropium Inhaler 18 MCG Inhalation Powder Cap Kit of 5 INH SCH (09:12)
[2021-04-14] MEDS: Gabapentin 300 MG Cap PO SCH ×3 (09:12→20:40)
[2021-04-14] MEDS: Formoterol/Mometasone 200-5 MCG 8.8 GM Inhaler IH SCH ×2 (09:13→20:40)
[2021-04-14] MEDS: Folic Acid 1 MG Tab PO SCH (09:14)
[2021-04-14] MEDS: Aspirin 81 MG Tab.EC PO SCH (09:14)
[2021-04-14] MEDS: Nicotine 7 MG/24 Hr Patch TRDERM SCH (09:14)
[2021-04-14] MEDS: atorvaSTATin 20 MG Tab PO SCH (09:15)
[2021-04-14] MEDS: Heparin Sodium 5,000 Units/ML Vial SUBCUT SCH ×2 (09:20→20:41)
[2021-04-15] MEDS: hydrALAZINE 25 MG Tab PO SCH ×2 (06:02→14:17)
[2021-04-15 07:24] VITALS: PULSE 89
[2021-04-15] MEDS: Aspirin 81 MG Tab.EC PO SCH (09:11)
[2021-04-15] MEDS: Gabapentin 300 MG Cap PO SCH ×2 (09:11→14:17)
[2021-04-15] MEDS: Potassium Chloride 10 MEQ Tab.ER PO SCH ×3 (09:12→17:28)
[2021-04-15] MEDS: Folic Acid 1 MG Tab PO SCH (09:13)
[2021-04-15] MEDS: Phosphorus #1 250 MG Tab PO SCH ×3 (09:14→16:33)
[2021-04-15] MEDS: atorvaSTATin 20 MG Tab PO SCH (09:15)
[2021-04-15] MEDS: Nicotine 7 MG/24 Hr Patch TRDERM SCH (09:16)
[2021-04-15] MEDS: Formoterol/Mometasone 200-5 MCG 8.8 GM Inhaler IH SCH (09:17)
[2021-04-15] MEDS: Tiotropium Inhaler 18 MCG Inhalation Powder Cap Kit of 5 INH SCH (09:18)
[2021-04-15] MEDS: Heparin Sodium 5,000 Units/ML Vial SUBCUT SCH (09:19)
--- NOTE | 2021-04-15 13:23 | PCM.SN.2 ---
- Free Text/Narrative Note: START OF DOCTOR EMAMIS DISCHARGE SUMMARY Date of Admission: 04/09/2021 Date of Discharge: 1:20 PM on 04/15/2021 Primary Diagnosis: Status post admission to swing bed for generalized weakness and rehabilitation Secondary Diagnosis: Constipation Proctitis, likely sequelae of constipation History of right upper lobe pulmonary nodule and left lower lobe pulmonary nodule Malnutrition Anemia Hypokalemia Acute renal insufficiency Hypophosphatemia Hypomagnesemia Hypercalcemia Hypocalcemia, iatrogenic Diverticulosis 3.3 cm distal descending thoracic aortic aneurysm Osteopenia Chronic bilateral renal artery aneurysm Coronary artery disease COPD Smoker Hypertension Folate deficiency Hyperlipidemia Postherpetic neuralgia History of alcohol abuse Degenerative disc disease Grade 1 diastolic dysfunction Peripheral vascular disease Hepatic steatosis Consultations: None Condition on Discharge: Fair Disposition: The patient be advised follow-up with interventional radiology within 2 weeks of discharge for further further assessment of his history of right upper lobe pulmonary nodule and left lower lobe pulmonary nodule The patient is advised follow-up with endocrinology within 10 days of discharge for diagnosis of hypercalcemia The patient is advised to follow-up with his primary care physician or provider 5 to 7 days post discharge for posthospitalization evaluation as well as continued monitoring of his history of 3.3 cm distal descending thoracic aortic aneurysm and chronic bilateral renal artery aneurysm The patient will require check of CMP, magnesium, and phosphorus level 5 days post discharge for diagnosis of hypercalcemia, hypomagnesemia, and hypophospha temia Discharge Medications: Symbicort 160/4.5 m puffs every 12 hours Lipitor 10 mg p.o. nightly Spiriva 18 mcg inhaled daily SennaS: 1 tab p.o. twice daily K. Dur 40 M EQ p.o. twice daily Mobic 7.5 mg p.o. twice daily Magnesium oxide 1000 mg p.o. q. hours Hydralazine 50 mg p.o. q. hours Gabapentin 600 mg p.o. 3 times daily Forecasted 1 mg p.o. daily Aspirin 81 mg p.o. daily Fosamax 70 mg p.o. q. Tuesday Proventil HFA: 90 lavell as per spray: 2 puffs every 6 hours as needed shortness of breath/wheeze END OF DOCTOR EMAMIS DISCHARGE SUMMARY
[2021-04-15 14:19] VITALS: BP 109/61
== END 2021-04-15 17:00 | disposition home or self-care (01) | DRG 948 ==
LOC: DL.MS 04-09 09:28
PROVIDERS: ADMIT Internal Medicine; ATTEND Internal Medicine
DX: R53.1 Weakness (principal); E46 Unspecified protein-calorie malnutrition; B02.29 Other postherpetic nervous system involvement; N17.9 Acute kidney failure, unspecified; Z68.1 Body mass index [BMI] 19.9 or less, adult; K59.00 Constipation, unspecified; D64.9 Anemia, unspecified; K62.89 Other specified diseases of anus and rectum; E87.6 Hypokalemia; E83.39 Other disorders of phosphorus metabolism; E83.42 Hypomagnesemia; E83.51 Hypocalcemia; E83.52 Hypercalcemia; K57.90 Diverticulosis of intestine, part unspecified, without perforation or abscess without bleeding; I71.2 Thoracic aortic aneurysm, without rupture; M85.80 Other specified disorders of bone density and structure, unspecified site; I72.2 Aneurysm of renal artery; E78.5 Hyperlipidemia, unspecified; E53.8 Deficiency of other specified B group vitamins; K76.0 Fatty (change of) liver, not elsewhere classified; J44.9 Chronic obstructive pulmonary disease, unspecified; I25.10 Atherosclerotic heart disease of native coronary artery without angina pectoris; F17.200 Nicotine dependence, unspecified, uncomplicated; R91.1 Solitary pulmonary nodule; I51.89 Other ill-defined heart diseases; H91.90 Unspecified hearing loss, unspecified ear; H54.7 Unspecified visual loss; E78.00 Pure hypercholesterolemia, unspecified; I10 Essential (primary) hypertension; I73.9 Peripheral vascular disease, unspecified; Z79.82 Long term (current) use of aspirin; Z79.899 Other long term (current) drug therapy; Z87.01 Personal history of pneumonia (recurrent)
CPT/HCPCS: 36415; 71046; 80048; 80053; 81001; 83735; 84100; 85025; 87040; 97110-GP; 97116-GP; 97161-GP; 97165-GO; 97530-GO; A9270-GY; J1644

== ENCOUNTER 2021-08-10 18:56 | Inpatient (IN) | payer OTHER ==
[2021-08-10] MEDS ORDERED: Albuterol/Ipratropium 3.0-0.5 MG/3 ML Neb Soln NEB ONE (19:44)
[2021-08-10] MEDS ORDERED: methylPREDNISolone Sodium Succinate 125 MG/2 ML SDV IVPUSH ONE (19:44)
[2021-08-10 20:03] LABS: CHLORIDE,CL 103 mmol/L (98-107); SODIUM,NA 141 mmol/L (136-145)
--- NOTE | 2021-08-10 20:38 | CR ---
PROCEDURE INFORMATION: Exam: XR Chest Exam date and time: 08/10/2021 8:22 PM Age: 81 years old Clinical indication: Shortness of breath TECHNIQUE: Imaging protocol: XR of the chest. Views: 1 view. COMPARISON: CR Chest 2V 04/12/2021 8:15 AM FINDINGS: Lungs: The lungs are moderately hyperinflated. There is diffuse moderate nonspecific interstitial disease. Pleural spaces: No pleural effusion. No pneumothorax. Heart/Mediastinum: The heart is not enlarged. Bones/joints: No acute bony findings are identified. IMPRESSION: 1. There is new moderate diffuse interstitial disease. Question interstitial pneumonia versus acute interstitial pulmonary edema. 2. If interstitial pneumonia is clinically suspect viral etiologies and atypical etiologies require consideration. Bacterial etiologies cannot not excluded. 3. Follow-up imaging studies recommended to assure complete resolution.
--- NOTE | 2021-08-10 20:48 | EDM.PDOC ---
ED HPI GENERAL MEDICAL PROBLEM - General Chief Complaint: Respiratory Problem Stated Complaint: EXTREME TROUBLE BREATHING Time Seen by Provider: 08/10/21 19:15 Source of Information: Reports: Patient, Family (Granddaughter), RN, RN Notes Reviewed History Limitations: Reports: Respiratory Distress - History of Present Illness INITIAL COMMENTS - FREE TEXT/NARRATIVE: Fly is a 81 y/o male, with a history of COPD, current smoker, and right lung mass, who presents to the ED via personal vehicle with his granddaughter for complaints of increasing shortness of breath, cough, and rigors. The patient reports his symptoms worsened two days ago and have progressed in that time. He notes pain to his right chest with cough but denies pain at rest or with deep breaths. He reports he is to undergo biopsy of his right lung mass at [facility] in 7 days. Additionally, he notes frequent diarrhea, up to five times per day; he is currently being treated for C-Diff with step-down vancomycin for infection he developed in April of 2021. He attests to decreased appetite and fluid intake over the past few weeks. He denies fever, chest pressure, palpitations, nausea, vomiting, or abdominal pain. He is not on home oxygen. He denies recreational drug use as well as alcohol use. Right Chest Pain Score (Numeric/FACES): 4 Right Shoulder Pain Score (Numeric/FACES): 5 - Related Data Allergies Allergy/AdvReac Type Severity Reaction Status Date / Time No Known Allergies Allergy Verified 08/10/21 19:23 Home Meds: Home Meds Aspirin [Ecotrin EC] 81 mg PO DAILY 06/10/14 [History] Gabapentin [Neurontin] 600 mg PO TID 06/10/20 [History] Tiotropium [Spiriva HandiHaler] 18 mcg INH DAILY 06/12/20 [History] Albuterol [Proventil HFA] 2 puff INH Q6H PRN 04/03/21 [History] Alendronate Sodium [Fosamax] 70 mg PO .Tuesday04/03/21 [History] Meloxicam [Mobic] 7.5 mg PO BID PRN 04/03/21 [History] Budesonide/Formoterol Fumarate [Symbicort 160-4.5 Mcg Inhaler] 2 puff INH Q12HR 04/09/21 [History] atorvaSTATin [Lipitor] 10 mg PO DAILY 04/09/21 [History] Folic Acid 1 mg PO DAILY 30 Days #30 tablet 04/15/21 [Rx] Magnesium Oxide 1,000 mg PO Q8H 30 Days #360 tablet 04/15/21 [Rx] Potassium Chloride [Klor-Con 10] 40 meq PO BIDMEALS 30 Days #240 tab.er 04/15/21 [Rx] hydrALAZINE [Apresoline] 50 mg PO Q8HR 30 Days #180 tablet 04/15/21 [Rx] Past Medical History HEENT History: Reports: Cataract, Hard of Hearing, Impaired Vision Other HEENT History: wears glasses Cardiovascular History: Reports: High Cholesterol, Hypertension Respiratory History: Reports: COPD, Pneumonia, Recurrent, Other (See Below) Other Respiratory History: spot found on right lung biopsy scheduled for aug 17 Gastrointestinal History: Reports: Chronic Constipation, Fecal Incontinence, GERD Genitourinary History: Reports: Urinary Incontinence Musculoskeletal History: Reports: Amputation Other Musculoskeletal History: 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 Neurological History: Reports: Other (See Below) Other Neuro History: 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 Psychiatric History: Reports: Addiction Hematologic History: Reports: Iron Deficiency Immunologic History: Reports: None Oncologic (Cancer) History: Reports: None Dermatologic History: Reports: Other (See Below) Other Dermatologic History: blotchy red hands - Infectious Disease History Infectious Disease History: Reports: Chicken Pox, Measles, Mumps, Shingles - Past Surgical History Head Surgeries/Procedures: Reports: None HEENT Surgical History: Reports: Cataract Surgery Other HEENT Surgeries/Procedures: bilat Musculoskeletal Surgical History: Reports: Other (See Below) Other Musculoskeletal Surgeries/Procedures:: left hip and ankle surgery Social & Family History - Family History Family Medical History: No Pertinent Family History - Tobacco Use Tobacco Use Status *Q: Current Every Day Tobacco User Years of Tobacco use: 69 Packs/Tins Daily: 0.3 Second Hand Smoke Exposure: Yes - Caffeine Use Caffeine Use: Reports: Coffee - Recreational Drug Use Recreational Drug Use: No ED ROS GENERAL - Review of Systems Review Of Systems: Comprehensive ROS is negative, except as noted in HPI. ED EXAM, GENERAL - Physical Exam Exam: See Below Exam Limited By: Respiratory Distress General Appearance: Alert, Moderate Distress (Increased work of breathing), Other (Ill-appearing elderly male) Eye Exam: Bilateral Eye: EOMI, Normal Inspection, PERRL (2mm) Ears: Normal External Exam, Normal Canal, Hearing Grossly Normal, Normal TMs Ear Exam: Bilateral Ear: Auricle Normal, Canal Normal, TM normal Nose: Normal Inspection, Normal Mucosa, No Blood Throat/Mouth: Normal Voice, No Airway Compromise. No: Normal Inspection (Dry mucous membranes), Normal Teeth, Normal Oropharynx (Dry mucous membranes; White/brown coated tongue) Head: Atraumatic, Normocephalic Neck: Normal Inspection, Supple, Non-Tender, Full Range of Motion Respiratory/Chest: Respiratory Distress (Tachypnea), Rales (To bilateral bases), Accessory Muscle Use, Other (Productive cough). No: Chest Non-Tender (With cough to left), Rhonchi, Wheezing, Stridor, Retractions, Prolonged Expiration Cardiovascular: Normal Peripheral Pulses, Regular Rate, Rhythm, No Edema, No Gallop, No JVD, No Murmur, No Rub, Tachycardia Peripheral Pulses: 2+: Radial (L), Radial (R) GI/Abdominal: Normal Bowel Sounds, Soft, Non-Tender, No Distention, No Abnormal Bruit, Pelvis Stable (Male) Exam: Deferred Rectal (Males) Exam: Deferred Back Exam: Normal Inspection, Full Range of Motion Extremities: Normal Inspection, Normal Range of Motion, Non-Tender, No Pedal Edema, Normal Capillary Refill Neurological: Alert, Oriented, CN II-XII Intact, Normal Cognition, Normal Gait, No Motor/Sensory Deficits Psychiatric: Normal Affect, Normal Mood Skin Exam: Warm, Dry, Intact, Normal Color, No Rash. No: Cyanosis, Jaundice, Mottled, Pallor #1 Interpretation Time: 20:29 Rhythm: Other (Sinus Tach) Rate (Beats/Min): 107 [place]: LAD-Left [place] Deviation P-Wave: Present QRS: Normal ST-T: Normal QT: Normal AK/PQ Interval: 0.158 Comparison: No Change EKG Interpretation Comments: ST; LAD; q-wave in V1; No evidence of acute myocardial ischemia Course - Vital Signs Last Recorded V/S: Last Vital Signs Temp 98.1 F 08/10/21 23:20 Pulse 106 H 08/10/21 23:20 Resp 24 H 08/10/21 23:20 BP 126/60 08/10/21 23:20 Pulse Ox 91 L 08/10/21 23:20 - Orders/Labs/Meds Orders: Active Orders 24 hr Category Date Time Status Admission Diagnosis [ADT] Stat ADT 08/10/21 22:31 Ordered Admission Status [Patient Status] [ADT] Routine ADT 08/10/21 22:31 Active RT Aerosol Therapy [RC] ASDIRECTED Care 08/10/21 19:44 Active CULTURE BLOOD [BC] Stat Lab 08/10/21 19:40 Results Medication Orders Acetaminophen (Acetaminophen 325 Mg Tab) 650 mg PO Q4H PRN PRN Reason: Pain (Mild 1-3)/fever Albuterol/Ipratropium (Albuterol/Ipratropium 3.0-0.5 Mg/3 Ml Neb Soln) 3 ml NEB Q2H PRN PRN Reason: Dyspnea Albuterol/Ipratropium (Albuterol/Ipratropium 3.0-0.5 Mg/3 Ml Neb Soln) 3 ml NEB Q6HRRT [facility] Last Admin: 08/11/21 00:07 Dose: 3 ml Documented by: DONNA Aspirin (Aspirin 81 Mg Tab.Ec) 81 mg PO DAILY [facility] Atorvastatin Calcium (Atorvastatin 10 Mg Tab) 10 mg PO DAILY [facility] Budesonide (Budesonide 0.5 Mg/2 Ml Neb Susp) 0.5 mg NEB BIDRT [facility] Enoxaparin Sodium (Enoxaparin 40 Mg/0.4 Ml Syringe) 40 mg SUBCUT DAILY [facility] Folic Acid (Folic Acid 1 Mg Tab) 1 mg PO DAILY [facility] Gabapentin (Gabapentin 300 Mg Cap) 600 mg PO TID [facility] Hydralazine HCl (Hydralazine 25 Mg Tab) 50 mg PO Q8HR [facility] Sodium Chloride (Normal Saline) 1,000 mls @ 60 mls/hr IV ASDIRECTED [facility] Last Admin: 08/11/21 00:08 Dose: 60 mls/hr Documented by: DONNA Azithromycin 500 mg/ Sodium (Chloride) 250 mls @ 250 mls/hr IV Q24H [facility] Magnesium Oxide (Magnesium Oxide 250 Mg Tab) 1,000 mg PO Q8H [facility] Last Admin: 08/11/21 00:07 Dose: 1,000 mg Documented by: DONNA Methylprednisolone Sodium Succinate (Methylprednisolone Sodium Succinate 40 Mg/1 Ml Sdv) 40 mg IVPUSH Q6H [facility] Metronidazole (Metronidazole 250 Mg Tab) 250 mg PO Q6H [facility] Last Admin: 08/11/21 00:07 Dose: 250 mg Documented by: DONNA Nicotine (Nicotine 21 Mg/24 Hr Patch) 21 mg TRDERM DAILY [facility] Non-Formulary Medication (Meloxicam [Mobic]) 7.5 mg PO BID PRN PRN Reason: Pain Potassium Chloride (Potassium Chloride 10 Meq Tab.Er) 40 meq PO BIDMEALS [facility] Tiotropium [place] (Tiotropium Inhaler 18 Mcg Inhalation Powder Cap Kit Of 5) 18 mcg INH DAILY [facility] Vancomycin HCl (Vancomycin 125 Mg Cap) 250 mg PO QID [facility] Labs: Laboratory Tests 08/10/21 08/10/21 08/10/21 Range/Units 19:40 19:40 19:40 WBC 16.2 H (5.0-10.0) 10^3/uL RBC 4.52 L (4.6-6.2) 10^6/uL Hgb 13.2 L D (14.0-18.0) g/dL Hct 38.6 L (40.0-54.0) % MCV 85.4 D (80-100) fL MCH 29.2 (27.0-34.0) pg MCHC 34.2 (33.0-35.0) g/dL Plt Count 445 (150-450) 10^3/uL Neut % (Auto) 92.9 H (42.2-75.2) % Lymph % (Auto) 2.8 L (20.5-50.1) % Park % (Auto) 4.2 (2-8) % Eos % (Auto) 0.0 L (1.0-3.0) % Baso % (Auto) 0.1 (0.0-1.0) % Add Manual Diff Yes Neutrophils % (Manual) 83 H (42-75) % Band Neutrophils % 10 % Lymphocytes % (Manual) 3 L (20-50) % Atypical Lymphs % 0 % Monocytes % (Manual) 2 (2-8) % Eosinophils % (Manual) 2 (1-3) % Sodium 141 (136-145) mmol/L Potassium 5.0 (3.5-5.1) mmol/L Chloride 103 (98-107) mmol/L Carbon Dioxide 25 (21-32) mmol/L Anion Gap 18.0 H (7-13) mEq/L BUN 28 H (7-18) mg/dL Creatinine 1.09 (0.70-1.30) mg/dL Est Cr Clr Drug Dosing 35.26 mL/min Estimated GFR (MDRD) > 60 BUN/Creatinine Ratio 25.7 (No establ ref range) Glucose 170 H (70-99) mg/dL Lactic Acid 3.6 H* (0.4-2.0) mmol/L Calcium 8.7 (8.5-10.1) mg/dL Total Bilirubin 0.4 (0.2-1.0) mg/dL AST 29 (15-37) U/L ALT 29 (16-63) U/L Alkaline Phosphatase 99 (46-116) U/L Total Protein 7.7 (6.4-8.2) g/dL Albumin 2.5 L (3.4-5.0) g/dL Globulin 5.2 Albumin/Globulin Ratio 0.48 SARS-CoV-2 RNA (EDY) (NEGATIVE) 08/10/21 Range/Units 21:12 WBC (5.0-10.0) 10^3/uL RBC (4.6-6.2) 10^6/uL Hgb (14.0-18.0) g/dL Hct (40.0-54.0) % MCV (80-100) fL MCH (27.0-34.0) pg MCHC (33.0-35.0) g/dL Plt Count (150-450) 10^3/uL Neut % (Auto) (42.2-75.2) % Lymph % (Auto) (20.5-50.1) % Park % (Auto) (2-8) % Eos % (Auto) (1.0-3.0) % Baso % (Auto) (0.0-1.0) % Add Manual Diff Neutrophils % (Manual) (42-75) % Band Neutrophils % % Lymphocytes % (Manual) (20-50) % Atypical Lymphs % % Monocytes % (Manual) (2-8) % Eosinophils % (Manual) (1-3) % Sodium (136-145) mmol/L Potassium (3.5-5.1) mmol/L Chloride (98-107) mmol/L Carbon Dioxide (21-32) mmol/L Anion Gap (7-13) mEq/L BUN (7-18) mg/dL Creatinine (0.70-1.30) mg/dL Est Cr Clr Drug Dosing mL/min Estimated GFR (MDRD) BUN/Creatinine Ratio (No establ ref range) Glucose (70-99) mg/dL Lactic Acid (0.4-2.0) mmol/L Calcium (8.5-10.1) mg/dL Total Bilirubin (0.2-1.0) mg/dL AST (15-37) U/L ALT (16-63) U/L Alkaline Phosphatase (46-116) U/L Total Protein (6.4-8.2) g/dL Albumin (3.4-5.0) g/dL Globulin Albumin/Globulin Ratio SARS-CoV-2 RNA (EDY) Negative (NEGATIVE) Meds: Medications Generic Name Dose Route Start Last Admin Trade Name Freq PRN Reason Stop Dose Admin Acetaminophen 650 mg 08/10/21 23:05 Acetaminophen 325 Mg Tab PO Q4H PRN Pain (Mild 1-3)/fever Albuterol/Ipratropium 3 ml 08/10/21 23:16 Albuterol/Ipratropium 3.0-0.5 Mg/3 Ml Neb Soln NEB Q2H PRN Dyspnea Albuterol/Ipratropium 3 ml 08/11/21 01:00 08/11/21 00:07 Albuterol/Ipratropium 3.0-0.5 Mg/3 Ml Neb Soln NEB 3 ml Q6HRRT [facility] Administration Aspirin 81 mg 08/11/21 09:00 Aspirin 81 Mg Tab.Ec PO DAILY [facility] Atorvastatin Calcium 10 mg 08/11/21 09:00 Atorvastatin 10 Mg Tab PO DAILY [facility] Budesonide 0.5 mg 08/11/21 07:00 Budesonide 0.5 Mg/2 Ml Neb Susp NEB BIDRT [facility] Enoxaparin Sodium 40 mg 08/11/21 09:00 Enoxaparin 40 Mg/0.4 Ml Syringe SUBCUT DAILY [facility] Folic Acid 1 mg 08/11/21 09:00 Folic Acid 1 Mg Tab PO DAILY [facility] Gabapentin 600 mg 08/11/21 09:00 Gabapentin 300 Mg Cap PO TID [facility] Hydralazine HCl 50 mg 08/11/21 06:00 Hydralazine 25 Mg Tab PO Q8HR [facility] Sodium Chloride 1,000 mls @ 60 mls/hr 08/10/21 23:15 08/11/21 00:08 Normal Saline IV 60 mls/hr ASDIRECTED [facility] Administration Azithromycin 500 mg/ Sodium 250 mls @ 250 mls/hr 08/11/21 15:00 Chloride IV Q24H [facility] Magnesium Oxide 1,000 mg 08/10/21 23:30 08/11/21 00:07 Magnesium Oxide 250 Mg Tab PO 1,000 mg Q8H [facility] Administration Methylprednisolone Sodium Succinate 40 mg 08/11/21 02:00 Methylprednisolone Sodium Succinate 40 Mg/1 Ml Sdv IVPUSH Q6H [facility] Metronidazole 250 mg 08/10/21 23:15 08/11/21 00:07 Metronidazole 250 Mg Tab PO 250 mg Q6H [facility] Administration Nicotine 21 mg 08/11/21 09:00 Nicotine 21 Mg/24 Hr Patch TRDERM DAILY [facility] Non-Formulary Medication 7.5 mg 08/10/21 23:28 Meloxicam [Mobic] PO BID PRN Pain Potassium Chloride 40 meq 08/11/21 08:00 Potassium Chloride 10 Meq Tab.Er PO BIDMEALS [facility] Tiotropium [place] 18 mcg 08/11/21 09:00 Tiotropium Inhaler 18 Mcg Inhalation Powder Cap Kit Of 5 INH DAILY [facility] Vancomycin HCl 250 mg 08/11/21 09:00 Vancomycin 125 Mg Cap PO QID [facility] Discontinued Medications Generic Name Dose Route Start Last Admin Trade Name Freq PRN Reason Stop Dose Admin Albuterol/Ipratropium 3 ml 08/10/21 19:44 08/10/21 19:57 Albuterol/Ipratropium 3.0-0.5 Mg/3 Ml Neb Soln NEB 08/10/21 19:45 3 ml ONETIME ONE Administration Ceftriaxone Sodium 2 gm/ 100 mls @ 200 mls/hr 08/10/21 20:50 08/10/21 21:14 Sodium Chloride IV 08/10/21 21:19 200 mls/hr ONETIME ONE Administration Azithromycin 500 mg/ Sodium 250 mls @ 250 mls/hr 08/10/21 20:52 08/10/21 21:21 Chloride IV 08/10/21 21:51 250 mls/hr ONETIME ONE Administration Lactated Ringer's 500 mls @ 500 mls/hr 08/10/21 21:03 08/10/21 21:14 Ringers, Lactated IV 08/10/21 22:02 500 mls/hr .BOLUS ONE Administration Methylprednisolone Sodium Succinate 125 mg 08/10/21 19:44 08/10/21 19:57 Methylprednisolone Sodium Succinate 125 Mg/2 Ml Sdv IVPUSH 08/10/21 19:45 125 mg ONETIME ONE Administration Methylprednisolone Sodium Succinate 40 mg 08/10/21 23:15 Methylprednisolone Sodium Succinate 40 Mg/1 Ml Sdv IVPUSH Q6H [facility] - Radiology Interpretation Free Text/Narrative:: [facility] Final Radiology Report Call: [phone] assistance Online chat: [email or web address] Name: FLY TRAN Age: 81Years M Date: 08/10/2021 SSN: -- : [id number] Study: CR CHEST 1V FRONTAL Requesting Physician: Jordyn Duarte Images: 2 Addl Studies: Provided Clinical History: Shortness of breath Contrast: Contrast Medium: Contrast Amount: Contrast Method: Page 1 of 2 PROCEDURE INFORMATION: Exam: XR Chest Exam date and time: 08/10/2021 8:22 PM Age: 81 years old Clinical indication: Shortness of breath TECHNIQUE: Imaging protocol: XR of the chest. Views: 1 view. COMPARISON: CR Chest 2V 04/12/2021 8:15 AM FINDINGS: Lungs: The lungs are moderately hyperinflated. There is diffuse moderate nonspecific interstitial disease. Pleural spaces: No pleural effusion. No pneumothorax. Heart/Mediastinum: The heart is not enlarged. Bones/joints: No acute bony findings are identified. IMPRESSION: 1. There is new moderate diffuse interstitial disease. Question interstitial pneumonia versus acute interstitial pulmonary edema. 2. If interstitial pneumonia is clinically suspect viral etiologies and atypical etiologies require consideration. Bacterial etiologies cannot not excluded. 3. Follow-up imaging studies recommended to assure complete resolution. Thank you for allowing us to participate in the care of your patient. Dictated and Authenticated by: Nolberto Wolfe MD 08/10/2021 8:37 PM Central Time ([place] & [place]) - Re-Assessments/Exams Free Text/Narrative Re-Assessment/Exam: 08/10/21 Solu-Medrol 125mg IVP and DuoNeb administered. Labs and CXR pending. Patient on 2.5L O2 via NC with saturations 89% Azithromycin 500mg IVPB and Rocephin 2gm IVPB administered. LR 500cc bolus administered. Increased O2 to 3.5L via NC with saturations 89% CXR revealed pneumonia vs edema. WBC 16. Lactic 3.[address] Westfall who kindly accepted patient for admission to this facility. Departure - Departure Time of Disposition: 22:52 Disposition: Admitted As Inpatient 68 Condition: Fair Clinical Impression: Dehydration Pneumonia Qualifiers: Pneumonia type: due to unspecified organism Laterality: bilateral Lung location: unspecified part of lung Qualified Code(s): J18.9 - Pneumonia, unspecified organism COPD (chronic obstructive pulmonary disease) Qualifiers: COPD type: COPD with acute lower respiratory infection Qualified Code(s): J44.0 - Chronic obstructive pulmonary disease with (acute) lower respiratory infection - Discharge Information Sepsis Event Note (ED) - Focused Exam Vital Signs: Vital Signs Temp Pulse Resp BP Pulse Ox 08/10/21 19:11 97.9 F 119 H 20 144/67 H 85 L - My Orders Last 24 Hours: My Active Orders 08/10/21 19:40 CULTURE BLOOD [BC] Stat 08/10/21 19:44 RT Aerosol Therapy [RC] ASDIRECTED 08/10/21 22:31 Admission Diagnosis [ADT] Stat Admission Status [Patient Status] [ADT] Routine - Assessment/Plan Last 24 Hours: My Active Orders 08/10/21 19:40 CULTURE BLOOD [BC] Stat 08/10/21 19:44 RT Aerosol Therapy [RC] ASDIRECTED 08/10/21 22:31 Admission Diagnosis [ADT] Stat Admission Status [Patient Status] [ADT] Routine
[2021-08-10] MEDS ORDERED: cefTRIAXone 2 GM in Sodium Chloride 0.9% 100 ML IV ONE (20:50)
[2021-08-10] MEDS ORDERED: Azithromycin 500 MG in Sodium Chloride 0.9% 250 ML IV ONE (20:52)
[2021-08-10] MEDS ORDERED: Lactated Ringers 500 ML IV ONE (21:03)
--- NOTE | 2021-08-10 22:59 | PCM.HP ---
H&P History of Present Illness - General Date of Service: 08/10/21 Admit Problem/Dx: Admission Diagnosis/Problem Admission Diagnosis/Problem Pneumonia Source of Information: Patient, Family, Provider (ER) History Limitations: Reports: No Limitations - History of Present Illness Onset of Symptoms: Reports: Gradual Duration of Symptoms: Reports: Day(s): (2-3) Right Chest Pain Score (Numeric/FACES): 4 - Related Data Allergies/Adverse Reactions: Allergies Allergy/AdvReac Type Severity Reaction Status Date / Time No Known Allergies Allergy Verified 08/10/21 19:23 Home Medications: Home Meds Aspirin [Ecotrin EC] 81 mg PO DAILY 06/10/14 [History] Gabapentin [Neurontin] 600 mg PO TID 06/10/20 [History] Tiotropium [Spiriva HandiHaler] 18 mcg INH DAILY 06/12/20 [History] Albuterol [Proventil HFA] 2 puff INH Q6H PRN 04/03/21 [History] Alendronate Sodium [Fosamax] 70 mg PO .Tuesday04/03/21 [History] Meloxicam [Mobic] 7.5 mg PO BID PRN 04/03/21 [History] Budesonide/Formoterol Fumarate [Symbicort 160-4.5 Mcg Inhaler] 2 puff INH Q12HR 04/09/21 [History] atorvaSTATin [Lipitor] 10 mg PO DAILY 04/09/21 [History] Folic Acid 1 mg PO DAILY 30 Days #30 tablet 04/15/21 [Rx] Magnesium Oxide 1,000 mg PO Q8H 30 Days #360 tablet 04/15/21 [Rx] Potassium Chloride [Klor-Con 10] 40 meq PO BIDMEALS 30 Days #240 tab.er 04/15/21 [Rx] hydrALAZINE [Apresoline] 50 mg PO Q8HR 30 Days #180 tablet 04/15/21 [Rx] Past Medical History HEENT History: Reports: Cataract, Hard of Hearing, Impaired Vision Other HEENT History: wears glasses Cardiovascular History: Reports: High Cholesterol, Hypertension Respiratory History: Reports: COPD, Pneumonia, Recurrent, Other (See Below) Other Respiratory History: spot found on right lung biopsy scheduled for aug 17 Gastrointestinal History: Reports: Chronic Constipation, Fecal Incontinence, GERD Genitourinary History: Reports: Urinary Incontinence Musculoskeletal History: Reports: Amputation Other Musculoskeletal History: 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 Neurological History: Reports: Other (See Below) Other Neuro History: 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 Psychiatric History: Reports: Addiction Hematologic History: Reports: Iron Deficiency Immunologic History: Reports: None Oncologic (Cancer) History: Reports: None Dermatologic History: Reports: Other (See Below) Other Dermatologic History: blotchy red hands - Infectious Disease History Infectious Disease History: Reports: Chicken Pox, Measles, Mumps, Shingles - Past Surgical History Head Surgeries/Procedures: Reports: None HEENT Surgical History: Reports: Cataract Surgery Other HEENT Surgeries/Procedures: bilat Musculoskeletal Surgical History: Reports: Other (See Below) Other Musculoskeletal Surgeries/Procedures:: left hip and ankle surgery Social & Family History - Family History Family Medical History: No Pertinent Family History - Tobacco Use Tobacco Use Status *Q: Current Every Day Tobacco User Years of Tobacco use: 69 Packs/Tins Daily: 0.3 Second Hand Smoke Exposure: Yes - Caffeine Use Caffeine Use: Reports: Coffee - Alcohol Use Date/Time of Last Drink Comment: one month ago - Recreational Drug Use Recreational Drug Use: No H&P Review of Systems - Review of Systems: Review Of Systems: Comprehensive ROS is negative, except as noted in HPI. General: Denies: Fever, Chills Pulmonary: Reports: Shortness of Breath Cardiovascular: Denies: Chest Pain Gastrointestinal: Reports: Other (chrnoic diarrhea 4-5 times /day since diagnosed with C diff in April). Denies: Abdominal Pain, Nausea Musculoskeletal: Reports: No Symptoms Skin: Reports: No Symptoms Psychiatric: Reports: No Symptoms Neurological: Reports: No Symptoms Review of Systems Comment:: lost about 30 Lbs over the past 3 years and 3 Lbs since last month. Exam - Exam Exam: See Below - Vital Signs Vital Signs: Last Vital Signs Temp 97.9 F 08/10/21 19:11 Pulse 119 H 08/10/21 19:11 Resp 20 08/10/21 19:11 BP 144/67 H 08/10/21 19:11 Pulse Ox 85 L 08/10/21 19:11 Weight: 100 lb - Exam Quality Assessment: Supplemental Oxygen General: Oriented, Moderate Distress HEENT: EOMI Neck: Supple Lungs: Decreased Breath Sounds Cardiovascular: Regular Rate, Regular Rhythm GI/Abdominal Exam: Soft, Non-Tender Extremities: Normal Inspection Skin: Dry Neurological: Cranial Nerves Intact Neuro Extensive - Mental Status: Alert, Oriented x3 Neuro Extensive - Motor, Sensory, Reflexes: CN II-XII Intact Psychiatric: Alert, Normal Affect - Patient Data Lab Results Last 24 hrs: Laboratory Results - last 24 hr 08/10/21 08/10/21 08/10/21 Range/Units 19:40 19:40 19:40 WBC 16.2 H (5.0-10.0) 10^3/uL RBC 4.52 L (4.6-6.2) 10^6/uL Hgb 13.2 L D (14.0-18.0) g/dL Hct 38.6 L (40.0-54.0) % MCV 85.4 D (80-100) fL MCH 29.2 (27.0-34.0) pg MCHC 34.2 (33.0-35.0) g/dL Plt Count 445 (150-450) 10^3/uL Neut % (Auto) 92.9 H (42.2-75.2) % Lymph % (Auto) 2.8 L (20.5-50.1) % [place] % (Auto) 4.2 (2-8) % Eos % (Auto) 0.0 L (1.0-3.0) % Baso % (Auto) 0.1 (0.0-1.0) % Add Manual Diff Yes Neutrophils % (Manual) 83 H (42-75) % Band Neutrophils % 10 % Lymphocytes % (Manual) 3 L (20-50) % Atypical Lymphs % 0 % Monocytes % (Manual) 2 (2-8) % Eosinophils % (Manual) 2 (1-3) % Sodium 141 (136-145) mmol/L Potassium 5.0 (3.5-5.1) mmol/L Chloride 103 (98-107) mmol/L Carbon Dioxide 25 (21-32) mmol/L Anion Gap 18.0 H (7-13) mEq/L BUN 28 H (7-18) mg/dL Creatinine 1.09 (0.70-1.30) mg/dL Est Cr Clr Drug Dosing 35.26 mL/min Estimated GFR (MDRD) > 60 BUN/Creatinine Ratio 25.7 (No establ ref range) Glucose 170 H (70-99) mg/dL Lactic Acid 3.6 H* (0.4-2.0) mmol/L Calcium 8.7 (8.5-10.1) mg/dL Total Bilirubin 0.4 (0.2-1.0) mg/dL AST 29 (15-37) U/L ALT 29 (16-63) U/L Alkaline Phosphatase 99 (46-116) U/L Total Protein 7.7 (6.4-8.2) g/dL Albumin 2.5 L (3.4-5.0) g/dL Globulin 5.2 Albumin/Globulin Ratio 0.48 SARS-CoV-2 RNA (EDY) (NEGATIVE) 08/10/21 Range/Units 21:12 WBC (5.0-10.0) 10^3/uL RBC (4.6-6.2) 10^6/uL Hgb (14.0-18.0) g/dL Hct (40.0-54.0) % MCV (80-100) fL MCH (27.0-34.0) pg MCHC (33.0-35.0) g/dL Plt Count (150-450) 10^3/uL Neut % (Auto) (42.2-75.2) % Lymph % (Auto) (20.5-50.1) % [place] % (Auto) (2-8) % Eos % (Auto) (1.0-3.0) % Baso % (Auto) (0.0-1.0) % Add Manual Diff Neutrophils % (Manual) (42-75) % Band Neutrophils % % Lymphocytes % (Manual) (20-50) % Atypical Lymphs % % Monocytes % (Manual) (2-8) % Eosinophils % (Manual) (1-3) % Sodium (136-145) mmol/L Potassium (3.5-5.1) mmol/L Chloride (98-107) mmol/L Carbon Dioxide (21-32) mmol/L Anion Gap (7-13) mEq/L BUN (7-18) mg/dL Creatinine (0.70-1.30) mg/dL Est Cr Clr Drug Dosing mL/min Estimated GFR (MDRD) BUN/Creatinine Ratio (No establ ref range) Glucose (70-99) mg/dL Lactic Acid (0.4-2.0) mmol/L Calcium (8.5-10.1) mg/dL Total Bilirubin (0.2-1.0) mg/dL AST (15-37) U/L ALT (16-63) U/L Alkaline Phosphatase (46-116) U/L Total Protein (6.4-8.2) g/dL Albumin (3.4-5.0) g/dL Globulin Albumin/Globulin Ratio SARS-CoV-2 RNA (EDY) Negative (NEGATIVE) Result Diagrams: 08/10/21 19:40 08/10/21 19:40 Rafa Results Last 24 hrs: Microbiology 08/10/21 19:40 Anaerobic Blood Culture - Final Blood - Arm, Left Problem List Initiated/Reviewed/Updated: Yes Orders Last 24hrs: Active Orders 24 hr Category Date Time Status Admission Diagnosis [ADT] Stat ADT 08/10/21 22:31 Ordered Admission Status [Patient Status] [ADT] Routine ADT 08/10/21 22:31 Active RT Aerosol Therapy [RC] ASDIRECTED Care 08/10/21 19:44 Active CULTURE BLOOD [BC] Stat Lab 08/10/21 19:40 Results Assessment/Plan Comment:: COPD exacerbation: Nebs , steroid IV. ?? pneumonia: for Zithromax. Hold off Ceftriaxone due to C diff. Lung biopsy: scheduled for biopsy next week. Chronic C diff: IVF, Continue with Vanco and add Flagyl. smoking: nicotine patch DNR/DNI as per pt and his daughter. total time 75 min
[2021-08-10] MEDS ORDERED: Sodium Chloride 0.9% 1,000 ML IV SCH (23:15)
[2021-08-10] MEDS ORDERED: methylPREDNISolone Sodium Succinate 40 MG/1 ML SDV IVPUSH SCH (23:15)
[2021-08-10] MEDS ORDERED: Albuterol/Ipratropium 3.0-0.5 MG/3 ML Neb Soln NEB PRN (23:16)
[2021-08-10] MEDS ORDERED: MELOXICAM 15 MG PO PRN (23:28)
[2021-08-11] MEDS: metroNIDAZOLE 250 MG Tab PO SCH ×5 (00:07→21:50)
[2021-08-11] MEDS: Albuterol/Ipratropium 3.0-0.5 MG/3 ML Neb Soln NEB SCH ×4 (00:07→17:22)
[2021-08-11] MEDS: methylPREDNISolone Sodium Succinate 40 MG/1 ML SDV IVPUSH SCH ×4 (02:11→19:45)
[2021-08-11] MEDS ORDERED: hydrALAZINE 25 MG Tab PO SCH (06:00)
[2021-08-11 06:43] LABS: ANION GAP 16.6 mEq/L (7-13); CHLORIDE,CL 107 mmol/L (98-107); SODIUM,NA 142 mmol/L (136-145)
[2021-08-11] MEDS ORDERED: Potassium Chloride 10 MEQ Tab.ER PO SCH (08:00)
[2021-08-11] MEDS: Budesonide 0.5 MG/2 ML Neb Susp NEB SCH ×2 (08:15→17:22)
[2021-08-11] MEDS: Aspirin 81 MG Tab.EC PO SCH (08:47)
[2021-08-11] MEDS: atorvaSTATin 10 MG Tab PO SCH (08:47)
[2021-08-11] MEDS: Vancomycin 125 MG Cap PO SCH ×4 (08:47→21:51)
[2021-08-11] MEDS: Gabapentin 300 MG Cap PO SCH ×3 (08:48→21:51)
[2021-08-11] MEDS: Enoxaparin 40 MG/0.4 ML Syringe SUBCUT SCH (08:48)
[2021-08-11] MEDS: Folic Acid 1 MG Tab PO SCH (08:48)
[2021-08-11] MEDS: Nicotine 21 MG/24 Hr Patch TRDERM SCH (08:51)
[2021-08-11] MEDS: Tiotropium Inhaler 18 MCG Inhalation Powder Cap Kit of 5 INH SCH (08:57)
--- NOTE | 2021-08-11 09:34 | PCM.PN ---
- General Info Date of Service: 08/11/21 Functional Status: Reports: Tolerating Diet - Review of Systems General: Denies: Fever Pulmonary: Reports: Shortness of Breath (mildly improved) Cardiovascular: Denies: Chest Pain Gastrointestinal: Reports: Other (chronic diarrhea ) Skin: Reports: No Symptoms Neurological: Reports: No Symptoms Psychiatric: Reports: No Symptoms - Patient Data Vitals - Most Recent: Last Vital Signs Temp 97.8 F 08/11/21 08:00 Pulse 103 H 08/11/21 08:00 Resp 18 08/11/21 08:00 BP 113/50 L 08/11/21 08:00 Pulse Ox 91 L 08/11/21 08:00 Weight - Most Recent: 93 lb 6.4 oz I&O - Last 24 Hours: Intake & Output 08/10/21 08/11/21 08/11/21 22:59 06:59 14:59 Intake Total 200 200 Output Total 300 Balance -100 200 Lab Results Last 24 Hours: Laboratory Results - last 24 hr 08/10/21 08/10/21 08/10/21 Range/Units 19:40 19:40 19:40 WBC 16.2 H (5.0-10.0) 10^3/uL RBC 4.52 L (4.6-6.2) 10^6/uL Hgb 13.2 L D (14.0-18.0) g/dL Hct 38.6 L (40.0-54.0) % MCV 85.4 D (80-100) fL MCH 29.2 (27.0-34.0) pg MCHC 34.2 (33.0-35.0) g/dL Plt Count 445 (150-450) 10^3/uL Neut % (Auto) 92.9 H (42.2-75.2) % Lymph % (Auto) 2.8 L (20.5-50.1) % [place] % (Auto) 4.2 (2-8) % Eos % (Auto) 0.0 L (1.0-3.0) % Baso % (Auto) 0.1 (0.0-1.0) % Add Manual Diff Yes Neutrophils % (Manual) 83 H (42-75) % Band Neutrophils % 10 % Lymphocytes % (Manual) 3 L (20-50) % Atypical Lymphs % 0 % Monocytes % (Manual) 2 (2-8) % Eosinophils % (Manual) 2 (1-3) % Sodium 141 (136-145) mmol/L Potassium 5.0 (3.5-5.1) mmol/L Chloride 103 (98-107) mmol/L Carbon Dioxide 25 (21-32) mmol/L Anion Gap 18.0 H (7-13) mEq/L BUN 28 H (7-18) mg/dL Creatinine 1.09 (0.70-1.30) mg/dL Est Cr Clr Drug Dosing 35.26 mL/min Estimated GFR (MDRD) > 60 BUN/Creatinine Ratio 25.7 (No establ ref range) Glucose 170 H (70-99) mg/dL Lactic Acid 3.6 H* (0.4-2.0) mmol/L Calcium 8.7 (8.5-10.1) mg/dL Total Bilirubin 0.4 (0.2-1.0) mg/dL AST 29 (15-37) U/L ALT 29 (16-63) U/L Alkaline Phosphatase 99 (46-116) U/L Total Protein 7.7 (6.4-8.2) g/dL Albumin 2.5 L (3.4-5.0) g/dL Globulin 5.2 Albumin/Globulin Ratio 0.48 SARS-CoV-2 RNA (EDY) (NEGATIVE) 08/10/21 08/11/21 Range/Units 21:12 06:05 WBC (5.0-10.0) 10^3/uL RBC (4.6-6.2) 10^6/uL Hgb (14.0-18.0) g/dL Hct (40.0-54.0) % MCV (80-100) fL MCH (27.0-34.0) pg MCHC (33.0-35.0) g/dL Plt Count (150-450) 10^3/uL Neut % (Auto) (42.2-75.2) % Lymph % (Auto) (20.5-50.1) % [place] % (Auto) (2-8) % Eos % (Auto) (1.0-3.0) % Baso % (Auto) (0.0-1.0) % Add Manual Diff Neutrophils % (Manual) (42-75) % Band Neutrophils % % Lymphocytes % (Manual) (20-50) % Atypical Lymphs % % Monocytes % (Manual) (2-8) % Eosinophils % (Manual) (1-3) % Sodium 142 (136-145) mmol/L Potassium 4.6 (3.5-5.1) mmol/L Chloride 107 (98-107) mmol/L Carbon Dioxide 23 (21-32) mmol/L Anion Gap 16.6 H (7-13) mEq/L BUN 28 H (7-18) mg/dL Creatinine 0.86 (0.70-1.30) mg/dL Est Cr Clr Drug Dosing 41.74 mL/min Estimated GFR (MDRD) > 60 BUN/Creatinine Ratio (No establ ref range) Glucose 144 H (70-99) mg/dL Lactic Acid (0.4-2.0) mmol/L Calcium 8.2 L (8.5-10.1) mg/dL Total Bilirubin (0.2-1.0) mg/dL AST (15-37) U/L ALT (16-63) U/L Alkaline Phosphatase (46-116) U/L Total Protein (6.4-8.2) g/dL Albumin (3.4-5.0) g/dL Globulin Albumin/Globulin Ratio SARS-CoV-2 RNA (EDY) Negative (NEGATIVE) Rafa Results Last 24 Hours: Microbiology 08/10/21 19:40 Anaerobic Blood Culture - Final Blood - Arm, Left Med Orders - Current: Current Medications Acetaminophen (Acetaminophen 325 Mg Tab) 650 mg PO Q4H PRN PRN Reason: Pain (Mild 1-3)/fever Albuterol/Ipratropium (Albuterol/Ipratropium 3.0-0.5 Mg/3 Ml Neb Soln) 3 ml NEB Q2H PRN PRN Reason: Dyspnea Albuterol/Ipratropium (Albuterol/Ipratropium 3.0-0.5 Mg/3 Ml Neb Soln) 3 ml NEB Q6HRRT [facility] Last Admin: 08/11/21 08:15 Dose: 3 ml Documented by: Aspirin (Aspirin 81 Mg Tab.Ec) 81 mg PO DAILY [facility] Last Admin: 08/11/21 08:47 Dose: 81 mg Documented by: Atorvastatin Calcium (Atorvastatin 10 Mg Tab) 10 mg PO DAILY [facility] Last Admin: 08/11/21 08:47 Dose: 10 mg Documented by: Budesonide (Budesonide 0.5 Mg/2 Ml Neb Susp) 0.5 mg NEB BIDRT [facility] Last Admin: 08/11/21 08:15 Dose: 0.5 mg Documented by: Enoxaparin Sodium (Enoxaparin 40 Mg/0.4 Ml Syringe) 40 mg SUBCUT DAILY [facility] Last Admin: 08/11/21 08:48 Dose: 40 mg Documented by: Folic Acid (Folic Acid 1 Mg Tab) 1 mg PO DAILY [facility] Last Admin: 08/11/21 08:48 Dose: 1 mg Documented by: Gabapentin (Gabapentin 300 Mg Cap) 600 mg PO TID [facility] Last Admin: 08/11/21 08:48 Dose: 600 mg Documented by: Hydralazine HCl (Hydralazine 25 Mg Tab) 50 mg PO Q8HR [facility] Last Admin: 08/11/21 05:59 Dose: 50 mg Documented by: Sodium Chloride (Normal Saline) 1,000 mls @ 60 mls/hr IV ASDIRECTED [facility] Last Admin: 08/11/21 00:08 Dose: 60 mls/hr Documented by: Azithromycin 500 mg/ Sodium (Chloride) 250 mls @ 250 mls/hr IV Q24H [facility] Magnesium Oxide (Magnesium Oxide 250 Mg Tab) 1,000 mg PO Q8H [facility] Last Admin: 08/11/21 08:46 Dose: 1,000 mg Documented by: Methylprednisolone Sodium Succinate (Methylprednisolone Sodium Succinate 40 Mg/1 Ml Sdv) 40 mg IVPUSH Q6H [facility] Last Admin: 08/11/21 08:48 Dose: 40 mg Documented by: Metronidazole (Metronidazole 250 Mg Tab) 250 mg PO Q6H [facility] Last Admin: 08/11/21 05:59 Dose: 250 mg Documented by: Nicotine (Nicotine 21 Mg/24 Hr Patch) 21 mg TRDERM DAILY [facility] Last Admin: 08/11/21 08:51 Dose: 21 mg Documented by: Non-Formulary Medication (Meloxicam [Mobic]) 7.5 mg PO BID PRN PRN Reason: Pain Potassium Chloride (Potassium Chloride 10 Meq Tab.Er) 40 meq PO BIDMEALS [facility] Last Admin: 08/11/21 08:47 Dose: 40 meq Documented by: Tiotropium [place] (Tiotropium Inhaler 18 Mcg Inhalation Powder Cap Kit Of 5) 18 mcg INH DAILY [facility] Last Admin: 08/11/21 08:57 Dose: 18 mcg Documented by: Vancomycin HCl (Vancomycin 125 Mg Cap) 250 mg PO QID [facility] Last Admin: 08/11/21 08:47 Dose: 250 mg Documented by: Discontinued Medications Albuterol/Ipratropium (Albuterol/Ipratropium 3.0-0.5 Mg/3 Ml Neb Soln) 3 ml NEB ONETIME ONE Stop: 08/10/21 19:45 Last Admin: 08/10/21 19:57 Dose: 3 ml Documented by: Ceftriaxone Sodium 2 gm/ (Sodium Chloride) 100 mls @ 200 mls/hr IV ONETIME ONE Stop: 08/10/21 21:19 Last Admin: 08/10/21 21:14 Dose: 200 mls/hr Documented by: Azithromycin 500 mg/ Sodium (Chloride) 250 mls @ 250 mls/hr IV ONETIME ONE Stop: 08/10/21 21:51 Last Admin: 08/10/21 21:21 Dose: 250 mls/hr Documented by: Lactated Ringer's (Ringers, Lactated) 500 mls @ 500 mls/hr IV .BOLUS ONE Stop: 08/10/21 22:02 Last Admin: 08/10/21 21:14 Dose: 500 mls/hr Documented by: Methylprednisolone Sodium Succinate (Methylprednisolone Sodium Succinate 125 Mg/2 Ml Sdv) 125 mg IVPUSH ONETIME ONE Stop: 08/10/21 19:45 Last Admin: 08/10/21 19:57 Dose: 125 mg Documented by: Methylprednisolone Sodium Succinate (Methylprednisolone Sodium Succinate 40 Mg/1 Ml Sdv) 40 mg IVPUSH Q6H [facility] - Exam Quality Assessment: Supplemental Oxygen General: Alert, Oriented Neck: Supple Lungs: Decreased Breath Sounds Cardiovascular: Regular Rate, Regular Rhythm GI/Abdominal Exam: Soft, Non-Tender Extremities: Normal Inspection Skin: Warm Neurological: No New Focal Deficit Psy/Mental Status: Alert - Patient Data Lab Results Last 24 hrs: Laboratory Results - last 24 hr 08/10/21 08/10/21 08/10/21 Range/Units 19:40 19:40 19:40 WBC 16.2 H (5.0-10.0) 10^3/uL RBC 4.52 L (4.6-6.2) 10^6/uL Hgb 13.2 L D (14.0-18.0) g/dL Hct 38.6 L (40.0-54.0) % MCV 85.4 D (80-100) fL MCH 29.2 (27.0-34.0) pg MCHC 34.2 (33.0-35.0) g/dL Plt Count 445 (150-450) 10^3/uL Neut % (Auto) 92.9 H (42.2-75.2) % Lymph % (Auto) 2.8 L (20.5-50.1) % [place] % (Auto) 4.2 (2-8) % Eos % (Auto) 0.0 L (1.0-3.0) % Baso % (Auto) 0.1 (0.0-1.0) % Add Manual Diff Yes Neutrophils % (Manual) 83 H (42-75) % Band Neutrophils % 10 % Lymphocytes % (Manual) 3 L (20-50) % Atypical Lymphs % 0 % Monocytes % (Manual) 2 (2-8) % Eosinophils % (Manual) 2 (1-3) % Sodium 141 (136-145) mmol/L Potassium 5.0 (3.5-5.1) mmol/L Chloride 103 (98-107) mmol/L Carbon Dioxide 25 (21-32) mmol/L Anion Gap 18.0 H (7-13) mEq/L BUN 28 H (7-18) mg/dL Creatinine 1.09 (0.70-1.30) mg/dL Est Cr Clr Drug Dosing 35.26 mL/min Estimated GFR (MDRD) > 60 BUN/Creatinine Ratio 25.7 (No establ ref range) Glucose 170 H (70-99) mg/dL Lactic Acid 3.6 H* (0.4-2.0) mmol/L Calcium 8.7 (8.5-10.1) mg/dL Total Bilirubin 0.4 (0.2-1.0) mg/dL AST 29 (15-37) U/L ALT 29 (16-63) U/L Alkaline Phosphatase 99 (46-116) U/L Total Protein 7.7 (6.4-8.2) g/dL Albumin 2.5 L (3.4-5.0) g/dL Globulin 5.2 Albumin/Globulin Ratio 0.48 SARS-CoV-2 RNA (EDY) (NEGATIVE) 08/10/21 08/11/21 Range/Units 21:12 06:05 WBC (5.0-10.0) 10^3/uL RBC (4.6-6.2) 10^6/uL Hgb (14.0-18.0) g/dL Hct (40.0-54.0) % MCV (80-100) fL MCH (27.0-34.0) pg MCHC (33.0-35.0) g/dL Plt Count (150-450) 10^3/uL Neut % (Auto) (42.2-75.2) % Lymph % (Auto) (20.5-50.1) % [place] % (Auto) (2-8) % Eos % (Auto) (1.0-3.0) % Baso % (Auto) (0.0-1.0) % Add Manual Diff Neutrophils % (Manual) (42-75) % Band Neutrophils % % Lymphocytes % (Manual) (20-50) % Atypical Lymphs % % Monocytes % (Manual) (2-8) % Eosinophils % (Manual) (1-3) % Sodium 142 (136-145) mmol/L Potassium 4.6 (3.5-5.1) mmol/L Chloride 107 (98-107) mmol/L Carbon Dioxide 23 (21-32) mmol/L Anion Gap 16.6 H (7-13) mEq/L BUN 28 H (7-18) mg/dL Creatinine 0.86 (0.70-1.30) mg/dL Est Cr Clr Drug Dosing 41.74 mL/min Estimated GFR (MDRD) > 60 BUN/Creatinine Ratio (No establ ref range) Glucose 144 H (70-99) mg/dL Lactic Acid (0.4-2.0) mmol/L Calcium 8.2 L (8.5-10.1) mg/dL Total Bilirubin (0.2-1.0) mg/dL AST (15-37) U/L ALT (16-63) U/L Alkaline Phosphatase (46-116) U/L Total Protein (6.4-8.2) g/dL Albumin (3.4-5.0) g/dL Globulin Albumin/Globulin Ratio SARS-CoV-2 RNA (EDY) Negative (NEGATIVE) Result Diagrams: 08/10/21 19:40 08/11/21 06:05 Rafa Results Last 24 hrs: Microbiology 08/10/21 19:40 Anaerobic Blood Culture - Final Blood - Arm, Left Sepsis Event Note - Evaluation Sepsis Screening Result: Severe Sepsis Risk - Focused Exam Vital Signs: Vital Signs Temp Pulse Resp BP BP Pulse Ox 08/11/21 08:00 97.8 F 103 H 18 113/50 L 91 L 08/11/21 05:59 136/72 08/11/21 04:00 22 H 92 L 08/10/21 23:20 98.1 F 106 H 24 H 126/60 91 L - Problem List Review Problem List Initiated/Reviewed/Updated: Yes - My Orders Last 24 Hours: My Active Orders 08/10/21 23:05 Patient Status [ADT] Routine Oxygen Therapy [RC] PRN Up ad Bertha [RC] ASDIRECTED VTE/DVT Education [RC] Vital Signs [RC] 00,04,08,12,16,20 Acetaminophen [TylenoL] 650 mg PO Q4H PRN Resuscitation Status Routine 08/10/21 23:15 Sodium Chloride 0.9% [Normal Saline] 1,000 ml IV ASDIRECTED metroNIDAZOLE 250 mg PO Q6H 08/10/21 23:16 Albuterol/Ipratropium [DuoNeb 3.0-0.5 MG/3 ML] 3 ml NEB Q2H PRN 08/10/21 23:17 RT Aerosol Therapy [RC] ASDIRECTED 08/10/21 23:28 Meloxicam [Mobic] 7.5 mg PO BID PRN 08/10/21 23:30 RT Post Treatment Assessment [RC] Click to Edit RT Pre-Treatment Assessment [RC] Click to Edit Magnesium Oxide 1,000 mg PO Q8H 08/10/21 23:38 Isolation [COMM] Routine 08/11/21 01:00 Albuterol/Ipratropium [DuoNeb 3.0-0.5 MG/3 ML] 3 ml NEB Q6HRRT 08/11/21 02:00 methylPREDNISolone Sod Succ [Solu-MEDROL] 40 mg IVPUSH Q6H 08/11/21 06:00 hydrALAZINE [Apresoline] 50 mg PO Q8HR 08/11/21 07:00 Budesonide [Pulmicort] 0.5 mg NEB BIDRT 08/11/21 Breakfast Regular Diet [DIET] 08/11/21 08:00 Potassium Chloride [Klor-Con 10] 40 meq PO BIDMEALS 08/11/21 08:59 Consult to Occupational Therapy [OT Evaluation and Treatment] [CONS] Routine Consult to Physical Therapy [PT Evaluation and Treatment] [CONS] Routine 08/11/21 09:00 Aspirin [Halfprin] 81 mg PO DAILY Enoxaparin [Lovenox] 40 mg SUBCUT DAILY Folic Acid 1 mg PO DAILY Gabapentin [Neurontin] 600 mg PO TID Nicotine [Habitrol] 21 mg TRDERM DAILY Tiotropium [Spiriva HandiHaler] 18 mcg INH DAILY Vancomycin [Vancocin 125 MG Capsule] 250 mg PO QID atorvaSTATin [Lipitor] 10 mg PO DAILY 08/11/21 15:00 Azithromycin [Zithromax] 500 mg Sodium Chloride 0.9% [Normal Saline (AdvBag)] 250 ml IV Q24H 08/12/21 06:00 BASIC METABOLIC PANEL,BMP [CHEM] DAILY CBC W/O DIFF,HEMOGRAM [HEME] DAILY 08/13/21 06:00 BASIC METABOLIC PANEL,BMP [CHEM] DAILY CBC W/O DIFF,HEMOGRAM [HEME] DAILY 08/14/21 06:00 BASIC METABOLIC PANEL,BMP [CHEM] DAILY CBC W/O DIFF,HEMOGRAM [HEME] DAILY 08/15/21 06:00 BASIC METABOLIC PANEL,BMP [CHEM] DAILY CBC W/O DIFF,HEMOGRAM [HEME] DAILY 08/16/21 06:00 BASIC METABOLIC PANEL,BMP [CHEM] DAILY CBC W/O DIFF,HEMOGRAM [HEME] DAILY - Plan Plan:: COPD exacerbation: Nebs , steroid IV. O2 ?? pneumonia: for Zithromax IV. Hold off Ceftriaxone due to chronic C diff. Lung biopsy: scheduled for biopsy next week. Chronic C diff/ hypovolemia : IVF, Continue with Vanco and add Flagyl. smoking: nicotine patch DNR/DNI as per pt and his daughter. for PT/ OT
[2021-08-11] MEDS ORDERED: metroNIDAZOLE 250 MG Tab PO SCH (12:00)
[2021-08-11] MEDS: hydrALAZINE 25 MG Tab PO SCH ×2 (13:35→21:50)
[2021-08-11] MEDS: Azithromycin 500 MG in Sodium Chloride 0.9% 250 ML IV SCH (14:04)
[2021-08-11] MEDS ORDERED: atorvaSTATin 20 MG Tab PO SCH (21:00)
[2021-08-11] MEDS: Potassium Chloride 10 MEQ Tab.ER PO SCH (21:49)
[2021-08-12] MEDS: Albuterol/Ipratropium 3.0-0.5 MG/3 ML Neb Soln NEB SCH ×4 (01:23→18:31)
[2021-08-12] MEDS: methylPREDNISolone Sodium Succinate 40 MG/1 ML SDV IVPUSH SCH ×4 (01:26→19:47)
[2021-08-12 07:01] LABS: ANION GAP 14.5 mEq/L (7-13); CHLORIDE,CL 109 mmol/L (98-107); SODIUM,NA 142 mmol/L (136-145)
[2021-08-12] MEDS: Budesonide 0.5 MG/2 ML Neb Susp NEB SCH ×2 (07:38→18:31)
[2021-08-12] MEDS: Gabapentin 300 MG Cap PO SCH ×3 (09:59→21:25)
[2021-08-12] MEDS: Vancomycin 125 MG Cap PO SCH ×4 (10:01→21:26)
[2021-08-12] MEDS: metroNIDAZOLE 250 MG Tab PO SCH ×4 (10:02→21:26)
[2021-08-12] MEDS: Folic Acid 1 MG Tab PO SCH (10:02)
[2021-08-12] MEDS: Enoxaparin 40 MG/0.4 ML Syringe SUBCUT SCH (10:02)
[2021-08-12] MEDS: Aspirin 81 MG Tab.EC PO SCH (10:02)
[2021-08-12] MEDS: atorvaSTATin 10 MG Tab PO SCH (10:02)
[2021-08-12] MEDS: Nicotine 21 MG/24 Hr Patch TRDERM SCH (10:03)
[2021-08-12] MEDS ORDERED: Loperamide 2 MG Cap PO PRN (10:10)
--- NOTE | 2021-08-12 10:17 | PCM.PN ---
- General Info Date of Service: 08/12/21 Subjective Update: Breathing a little better but diarrhea is still ongoing. Still feeling weak. He would like to participate with PT. Functional Status: Reports: Pain Controlled, Tolerating Diet - Review of Systems General: Denies: Fever Pulmonary: Reports: Shortness of Breath (mildly improved), Wheezing (better) Cardiovascular: Denies: Chest Pain Neurological: Reports: No Symptoms Psychiatric: Reports: No Symptoms - Patient Data Vitals - Most Recent: Last Vital Signs Temp 98 F 08/12/21 05:00 Pulse 81 08/12/21 07:39 Resp 24 H 08/12/21 05:00 BP 108/47 L 08/12/21 05:00 Pulse Ox 94 L 08/12/21 07:39 Weight - Most Recent: 98 lb 8 oz I&O - Last 24 Hours: Intake & Output 08/11/21 08/12/21 08/12/21 22:59 06:59 14:59 Intake Total 220 Balance 220 Lab Results Last 24 Hours: Laboratory Results - last 24 hr 08/12/21 08/12/21 08/12/21 Range/Units 06:25 06:25 06:25 WBC 11.1 H (5.0-10.0) 10^3/uL RBC 3.64 L (4.6-6.2) 10^6/uL Hgb 10.5 L D (14.0-18.0) g/dL Hct 31.5 L (40.0-54.0) % MCV 86.5 (80-100) fL MCH 28.8 (27.0-34.0) pg MCHC 33.3 (33.0-35.0) g/dL Plt Count 466 H (150-450) 10^3/uL Sodium 142 (136-145) mmol/L Potassium 4.5 (3.5-5.1) mmol/L Chloride 109 H (98-107) mmol/L Carbon Dioxide 23 (21-32) mmol/L Anion Gap 14.5 H (7-13) mEq/L BUN 33 H (7-18) mg/dL Creatinine 0.89 (0.70-1.30) mg/dL Est Cr Clr Drug Dosing 42.53 mL/min Estimated GFR (MDRD) > 60 Glucose 168 H (70-99) mg/dL Lactic Acid 1.6 (0.4-2.0) mmol/L Calcium 8.1 L (8.5-10.1) mg/dL Magnesium 2.8 H (1.8-2.4) mg/dL Rafa Results Last 24 Hours: Microbiology 08/10/21 19:40 Aerobic Blood Culture - Preliminary Blood - Arm, Left NO GROWTH AFTER 1 DAY Anaerobic Blood Culture - Final Med Orders - Current: Current Medications Acetaminophen (Acetaminophen 325 Mg Tab) 650 mg PO Q4H PRN PRN Reason: Pain (Mild 1-3)/fever Albuterol/Ipratropium (Albuterol/Ipratropium 3.0-0.5 Mg/3 Ml Neb Soln) 3 ml NEB Q2H PRN PRN Reason: Dyspnea Albuterol/Ipratropium (Albuterol/Ipratropium 3.0-0.5 Mg/3 Ml Neb Soln) 3 ml NEB Q6HRRT [facility] Last Admin: 08/12/21 07:38 Dose: 3 ml Documented by: Aspirin (Aspirin 81 Mg Tab.Ec) 81 mg PO DAILY [facility] Last Admin: 08/12/21 10:02 Dose: 81 mg Documented by: Atorvastatin Calcium (Atorvastatin 10 Mg Tab) 10 mg PO DAILY [facility] Last Admin: 08/12/21 10:02 Dose: 10 mg Documented by: Budesonide (Budesonide 0.5 Mg/2 Ml Neb Susp) 0.5 mg NEB BIDRT [facility] Last Admin: 08/12/21 07:38 Dose: 0.5 mg Documented by: Enoxaparin Sodium (Enoxaparin 40 Mg/0.4 Ml Syringe) 40 mg SUBCUT DAILY [facility] Last Admin: 08/12/21 10:02 Dose: 40 mg Documented by: Folic Acid (Folic Acid 1 Mg Tab) 1 mg PO DAILY [facility] Last Admin: 08/12/21 10:02 Dose: 1 mg Documented by: Gabapentin (Gabapentin 300 Mg Cap) 600 mg PO TID [facility] Last Admin: 08/12/21 09:59 Dose: 600 mg Documented by: Hydralazine HCl (Hydralazine 25 Mg Tab) 50 mg PO TID [facility] Last Admin: 08/11/21 21:50 Dose: 50 mg Documented by: Azithromycin 500 mg/ Sodium (Chloride) 250 mls @ 250 mls/hr IV Q24H [facility] Last Infusion: 08/11/21 15:15 Dose: Infused Documented by: Loperamide HCl (Loperamide 2 Mg Cap) 2 mg PO Q6H PRN PRN Reason: Diarrhea Magnesium Oxide (Magnesium Oxide 250 Mg Tab) 500 mg PO TID [facility] Last Admin: 08/12/21 10:02 Dose: 500 mg Documented by: Methylprednisolone Sodium Succinate (Methylprednisolone Sodium Succinate 40 Mg/1 Ml Sdv) 40 mg IVPUSH Q6H [facility] Last Admin: 08/12/21 10:03 Dose: 40 mg Documented by: Metronidazole (Metronidazole 250 Mg Tab) 250 mg PO QID [facility] Last Admin: 08/12/21 10:02 Dose: 250 mg Documented by: Nicotine (Nicotine 21 Mg/24 Hr Patch) 21 mg TRDERM DAILY [facility] Last Admin: 08/12/21 10:03 Dose: 21 mg Documented by: Non-Formulary Medication (Meloxicam [Mobic]) 7.5 mg PO BID PRN PRN Reason: Pain Non-Formulary Medication (Alendronate Sodium [Fosamax]) 70 mg PO .TUESDAY [facility] Non-Formulary Medication (Lactobacillus Acidophilus [Acidophilus Lactobacilli]) 1 cap PO DAILY [facility] Potassium Chloride (Potassium Chloride 10 Meq Tab.Er) 20 meq PO BEDTIME [facility] Last Admin: 08/11/21 21:49 Dose: 20 meq Documented by: Sodium Chloride (Sodium Chloride 0.9% 10 Ml Syringe) 10 ml FLUSH ASDIRECTED PRN PRN Reason: IV Use Tiotropium [place] (Tiotropium Inhaler 18 Mcg Inhalation Powder Cap Kit Of 5) 18 mcg INH DAILY [facility] Last Admin: 08/11/21 08:57 Dose: 18 mcg Documented by: Vancomycin HCl (Vancomycin 125 Mg Cap) 250 mg PO QID [facility] Last Admin: 08/12/21 10:01 Dose: 250 mg Documented by: Discontinued Medications Albuterol/Ipratropium (Albuterol/Ipratropium 3.0-0.5 Mg/3 Ml Neb Soln) 3 ml NEB ONETIME ONE Stop: 08/10/21 19:45 Last Admin: 08/10/21 19:57 Dose: 3 ml Documented by: Hydralazine HCl (Hydralazine 25 Mg Tab) 50 mg PO Q8HR [facility] Last Admin: 08/11/21 05:59 Dose: 50 mg Documented by: Ceftriaxone Sodium 2 gm/ (Sodium Chloride) 100 mls @ 200 mls/hr IV ONETIME ONE Stop: 08/10/21 21:19 Last Admin: 08/10/21 21:14 Dose: 200 mls/hr Documented by: Azithromycin 500 mg/ Sodium (Chloride) 250 mls @ 250 mls/hr IV ONETIME ONE Stop: 08/10/21 21:51 Last Admin: 08/10/21 21:21 Dose: 250 mls/hr Documented by: Lactated Ringer's (Ringers, Lactated) 500 mls @ 500 mls/hr IV .BOLUS ONE Stop: 08/10/21 22:02 Last Admin: 08/10/21 21:14 Dose: 500 mls/hr Documented by: Sodium Chloride (Normal Saline) 1,000 mls @ 60 mls/hr IV ASDIRECTED [facility] Last Infusion: 08/11/21 17:44 Dose: Infused Documented by: Magnesium Oxide (Magnesium Oxide 250 Mg Tab) 1,000 mg PO Q8H [facility] Last Admin: 08/11/21 08:46 Dose: 1,000 mg Documented by: Methylprednisolone Sodium Succinate (Methylprednisolone Sodium Succinate 125 Mg/2 Ml Sdv) 125 mg IVPUSH ONETIME ONE Stop: 08/10/21 19:45 Last Admin: 08/10/21 19:57 Dose: 125 mg Documented by: Methylprednisolone Sodium Succinate (Methylprednisolone Sodium Succinate 40 Mg/1 Ml Sdv) 40 mg IVPUSH Q6H [facility] Metronidazole (Metronidazole 250 Mg Tab) 250 mg PO Q6H [facility] Last Admin: 08/11/21 05:59 Dose: 250 mg Documented by: Metronidazole (Metronidazole 250 Mg Tab) 250 mg PO Q6HR [facility] Potassium Chloride (Potassium Chloride 10 Meq Tab.Er) 40 meq PO BIDMEALS [facility] Last Admin: 08/11/21 08:47 Dose: 40 meq Documented by: - Exam Quality Assessment: Supplemental Oxygen General: Alert, Oriented, Mild Distress HEENT: EOMI Lungs: Decreased Breath Sounds (mildly improved) Cardiovascular: Regular Rate, Regular Rhythm GI/Abdominal Exam: Soft, Non-Tender Extremities: Normal Inspection Skin: Warm, Dry Neurological: No New Focal Deficit Psy/Mental Status: Alert, Normal Affect - Patient Data Lab Results Last 24 hrs: Laboratory Results - last 24 hr 08/12/21 08/12/21 08/12/21 Range/Units 06:25 06:25 06:25 WBC 11.1 H (5.0-10.0) 10^3/uL RBC 3.64 L (4.6-6.2) 10^6/uL Hgb 10.5 L D (14.0-18.0) g/dL Hct 31.5 L (40.0-54.0) % MCV 86.5 (80-100) fL MCH 28.8 (27.0-34.0) pg MCHC 33.3 (33.0-35.0) g/dL Plt Count 466 H (150-450) 10^3/uL Sodium 142 (136-145) mmol/L Potassium 4.5 (3.5-5.1) mmol/L Chloride 109 H (98-107) mmol/L Carbon Dioxide 23 (21-32) mmol/L Anion Gap 14.5 H (7-13) mEq/L BUN 33 H (7-18) mg/dL Creatinine 0.89 (0.70-1.30) mg/dL Est Cr Clr Drug Dosing 42.53 mL/min Estimated GFR (MDRD) > 60 Glucose 168 H (70-99) mg/dL Lactic Acid 1.6 (0.4-2.0) mmol/L Calcium 8.1 L (8.5-10.1) mg/dL Magnesium 2.8 H (1.8-2.4) mg/dL Result Diagrams: 08/12/21 06:25 08/12/21 06:25 Rafa Results Last 24 hrs: Microbiology 08/10/21 19:40 Aerobic Blood Culture - Preliminary Blood - Arm, Left NO GROWTH AFTER 1 DAY Anaerobic Blood Culture - Final Sepsis Event Note - Evaluation Sepsis Screening Result: Severe Sepsis Risk - Focused Exam Vital Signs: Vital Signs Temp Pulse Resp BP Pulse Ox Pulse Ox 08/12/21 07:39 81 94 L 08/12/21 05:00 98 F 92 24 H 108/47 L 91 L 08/12/21 01:30 89 90 L - Problem List Review Problem List Initiated/Reviewed/Updated: Yes - My Orders Last 24 Hours: My Active Orders 08/11/21 09:35 Consult to Occupational Therapy [OT Evaluation and Treatment] [CONS] Routine Consult to Physical Therapy [PT Evaluation and Treatment] [CONS] Routine 08/11/21 11:15 Alendronate Sodium [Fosamax] 70 mg PO .TUESDAY Lactobacillus Acidophilus [Acidophilus Lactobacilli] 1 cap PO DAILY 08/11/21 13:00 metroNIDAZOLE 250 mg PO QID 08/11/21 14:00 Magnesium Oxide 500 mg PO TID hydrALAZINE [Apresoline] 50 mg PO TID 08/11/21 15:00 Azithromycin [Zithromax] 500 mg Sodium Chloride 0.9% [Normal Saline (AdvBag)] 250 ml IV Q24H 08/11/21 21:00 Potassium Chloride [Klor-Con 10] 20 meq PO BEDTIME 08/12/21 01:25 Sodium Chloride 0.9% [Saline Flush] 10 ml FLUSH ASDIRECTED PRN 08/12/21 10:10 Loperamide [Imodium] 2 mg PO Q6H PRN 08/13/21 05:00 MAGNESIUM [CHEM] DAILY 08/13/21 06:00 BASIC METABOLIC PANEL,BMP [CHEM] DAILY CBC W/O DIFF,HEMOGRAM [HEME] DAILY 08/14/21 05:00 MAGNESIUM [CHEM] DAILY 08/14/21 06:00 BASIC METABOLIC PANEL,BMP [CHEM] DAILY CBC W/O DIFF,HEMOGRAM [HEME] DAILY 08/15/21 05:00 MAGNESIUM [CHEM] DAILY 08/15/21 06:00 BASIC METABOLIC PANEL,BMP [CHEM] DAILY CBC W/O DIFF,HEMOGRAM [HEME] DAILY 08/16/21 05:00 MAGNESIUM [CHEM] DAILY 08/16/21 06:00 BASIC METABOLIC PANEL,BMP [CHEM] DAILY CBC W/O DIFF,HEMOGRAM [HEME] DAILY 08/17/21 05:00 MAGNESIUM [CHEM] DAILY 08/18/21 05:00 MAGNESIUM [CHEM] DAILY - Plan Plan:: COPD exacerbation: Nebs , steroid IV. O2 ?? pneumonia: for Zithromax IV. Hold off Ceftriaxone due to chronic C diff. Lung biopsy: scheduled for biopsy next week. Chronic C diff/ hypovolemia : IVF, Continue with Vanco and add Flagyl. Try Imodium smoking: nicotine patch DNR/DNI as per pt and his daughter. for PT/ OT. May need O2 , Nebs at home further planning depends on the planned Lung biopsy ( same day procedure VS inpatient).
[2021-08-12] MEDS: hydrALAZINE 25 MG Tab PO SCH ×3 (11:53→21:26)
[2021-08-12] MEDS: Tiotropium Inhaler 18 MCG Inhalation Powder Cap Kit of 5 INH SCH (11:54)
[2021-08-12] MEDS: Azithromycin 500 MG in Sodium Chloride 0.9% 250 ML IV SCH (14:51)
[2021-08-12] MEDS ORDERED: ClonazePAM 0.5 MG Tab PO PRN (19:22)
[2021-08-12] MEDS: Sodium Chloride 0.9% 10 ML Syringe FLUSH PRN (19:46)
[2021-08-12] MEDS: Acetaminophen 325 MG Tab PO PRN (20:06)
[2021-08-12] MEDS: Potassium Chloride 10 MEQ Tab.ER PO SCH (21:26)
[2021-08-13] MEDS: Albuterol/Ipratropium 3.0-0.5 MG/3 ML Neb Soln NEB SCH ×4 (01:23→18:04)
[2021-08-13] MEDS: methylPREDNISolone Sodium Succinate 40 MG/1 ML SDV IVPUSH SCH ×4 (01:28→19:48)
[2021-08-13] MEDS: Sodium Chloride 0.9% 10 ML Syringe FLUSH PRN ×2 (01:28→19:47)
[2021-08-13 07:00] LABS: ANION GAP 13.3 mEq/L (7-13); CHLORIDE,CL 109 mmol/L (98-107); SODIUM,NA 142 mmol/L (136-145)
[2021-08-13] MEDS: Budesonide 0.5 MG/2 ML Neb Susp NEB SCH ×2 (07:24→18:04)
[2021-08-13] MEDS: Tiotropium Inhaler 18 MCG Inhalation Powder Cap Kit of 5 INH SCH (09:36)
[2021-08-13] MEDS: Enoxaparin 40 MG/0.4 ML Syringe SUBCUT SCH (09:37)
[2021-08-13] MEDS: Vancomycin 125 MG Cap PO SCH ×4 (09:37→21:30)
[2021-08-13] MEDS: hydrALAZINE 25 MG Tab PO SCH ×3 (09:38→21:29)
[2021-08-13] MEDS: Gabapentin 300 MG Cap PO SCH ×3 (09:38→21:30)
[2021-08-13] MEDS: Aspirin 81 MG Tab.EC PO SCH (09:39)
[2021-08-13] MEDS: metroNIDAZOLE 250 MG Tab PO SCH ×4 (09:39→21:30)
[2021-08-13] MEDS: Folic Acid 1 MG Tab PO SCH (09:39)
[2021-08-13] MEDS: atorvaSTATin 10 MG Tab PO SCH (09:39)
[2021-08-13] MEDS: Saccharomyces Boulardii (Probiotic) 250 MG Cap PO SCH (09:40)
[2021-08-13] MEDS: Nicotine 21 MG/24 Hr Patch TRDERM SCH (09:40)
--- NOTE | 2021-08-13 10:32 | PCM.PN ---
- General Info Date of Service: 08/13/21 - Patient Data Vitals - Most Recent: Last Vital Signs Temp 98.1 F 08/13/21 08:00 Pulse 92 08/13/21 08:00 Resp 20 08/13/21 08:00 BP 123/55 L 08/13/21 09:38 Pulse Ox 92 L 08/13/21 08:00 Weight - Most Recent: 102 lb 3.2 oz I&O - Last 24 Hours: Intake & Output 08/12/21 08/13/21 08/13/21 22:59 06:59 14:59 Intake Total 600 300 Balance 600 300 Lab Results Last 24 Hours: Laboratory Results - last 24 hr 08/13/21 08/13/21 Range/Units 06:10 06:10 WBC 13.7 H (5.0-10.0) 10^3/uL RBC 3.77 L (4.6-6.2) 10^6/uL Hgb 10.8 L (14.0-18.0) g/dL Hct 32.5 L (40.0-54.0) % MCV 86.2 (80-100) fL MCH 28.6 (27.0-34.0) pg MCHC 33.2 (33.0-35.0) g/dL Plt Count 534 H (150-450) 10^3/uL Sodium 142 (136-145) mmol/L Potassium 4.3 (3.5-5.1) mmol/L Chloride 109 H (98-107) mmol/L Carbon Dioxide 24 (21-32) mmol/L Anion Gap 13.3 H (7-13) mEq/L BUN 28 H (7-18) mg/dL Creatinine 0.83 (0.70-1.30) mg/dL Est Cr Clr Drug Dosing 47.32 mL/min Estimated GFR (MDRD) > 60 Glucose 195 H (70-99) mg/dL Calcium 8.2 L (8.5-10.1) mg/dL Magnesium 2.7 H (1.8-2.4) mg/dL Rafa Results Last 24 Hours: Microbiology 08/10/21 19:40 Aerobic Blood Culture - Preliminary Blood - Arm, Left NO GROWTH AFTER 2 DAYS Anaerobic Blood Culture - Final Med Orders - Current: Current Medications Acetaminophen (Acetaminophen 325 Mg Tab) 650 mg PO Q4H PRN PRN Reason: Pain (Mild 1-3)/fever Last Admin: 08/12/21 20:06 Dose: 650 mg Documented by: Albuterol/Ipratropium (Albuterol/Ipratropium 3.0-0.5 Mg/3 Ml Neb Soln) 3 ml NEB Q2H PRN PRN Reason: Dyspnea Albuterol/Ipratropium (Albuterol/Ipratropium 3.0-0.5 Mg/3 Ml Neb Soln) 3 ml NEB Q6HRRT [facility] Last Admin: 08/13/21 07:23 Dose: 3 ml Documented by: Aspirin (Aspirin 81 Mg Tab.Ec) 81 mg PO DAILY [facility] Last Admin: 08/13/21 09:39 Dose: 81 mg Documented by: Atorvastatin Calcium (Atorvastatin 10 Mg Tab) 10 mg PO DAILY [facility] Last Admin: 08/13/21 09:39 Dose: 10 mg Documented by: Budesonide (Budesonide 0.5 Mg/2 Ml Neb Susp) 0.5 mg NEB BIDRT [facility] Last Admin: 08/13/21 07:24 Dose: 0.5 mg Documented by: Clonazepam (Clonazepam 0.5 Mg Tab) 0.5 mg PO Q12H PRN PRN Reason: Anxiety Enoxaparin Sodium (Enoxaparin 40 Mg/0.4 Ml Syringe) 40 mg SUBCUT DAILY [facility] Last Admin: 08/13/21 09:37 Dose: 40 mg Documented by: Folic Acid (Folic Acid 1 Mg Tab) 1 mg PO DAILY [facility] Last Admin: 08/13/21 09:39 Dose: 1 mg Documented by: Gabapentin (Gabapentin 300 Mg Cap) 600 mg PO TID [facility] Last Admin: 08/13/21 09:38 Dose: 600 mg Documented by: Hydralazine HCl (Hydralazine 25 Mg Tab) 50 mg PO TID [facility] Last Admin: 08/13/21 09:38 Dose: 50 mg Documented by: Azithromycin 500 mg/ Sodium (Chloride) 250 mls @ 250 mls/hr IV Q24H [facility] Last Infusion: 08/12/21 15:52 Dose: Infused Documented by: Loperamide HCl (Loperamide 2 Mg Cap) 2 mg PO Q6H PRN PRN Reason: Diarrhea Methylprednisolone Sodium Succinate (Methylprednisolone Sodium Succinate 40 Mg/1 Ml Sdv) 40 mg IVPUSH Q6H [facility] Last Admin: 08/13/21 09:47 Dose: 40 mg Documented by: Metronidazole (Metronidazole 250 Mg Tab) 250 mg PO QID [facility] Last Admin: 08/13/21 09:39 Dose: 250 mg Documented by: Nicotine (Nicotine 21 Mg/24 Hr Patch) 21 mg TRDERM DAILY [facility] Last Admin: 08/13/21 09:40 Dose: 21 mg Documented by: Alendronate Sodium [ Fosamax] 70 Mg Tablet Pt Own Med* * 0 each PO Mo@0600 [facility] Potassium Chloride (Potassium Chloride 10 Meq Tab.Er) 20 meq PO BEDTIME [facility] Last Admin: 08/12/21 21:26 Dose: 20 meq Documented by: Saccharomyces Boulardii (Saccharomyces Boulardii (Probiotic) 250 Mg Cap) 500 mg PO DAILY [facility] Last Admin: 08/13/21 09:40 Dose: 500 mg Documented by: Sodium Chloride (Sodium Chloride 0.9% 10 Ml Syringe) 10 ml FLUSH ASDIRECTED PRN PRN Reason: IV Use Last Admin: 08/13/21 01:28 Dose: 10 ml Documented by: Tiotropium [place] (Tiotropium Inhaler 18 Mcg Inhalation Powder Cap Kit Of 5) 18 mcg INH DAILY [facility] Last Admin: 08/13/21 09:36 Dose: 18 mcg Documented by: Vancomycin HCl (Vancomycin 125 Mg Cap) 250 mg PO QID [facility] Last Admin: 08/13/21 09:37 Dose: 250 mg Documented by: Discontinued Medications Albuterol/Ipratropium (Albuterol/Ipratropium 3.0-0.5 Mg/3 Ml Neb Soln) 3 ml NEB ONETIME ONE Stop: 08/10/21 19:45 Last Admin: 08/10/21 19:57 Dose: 3 ml Documented by: Hydralazine HCl (Hydralazine 25 Mg Tab) 50 mg PO Q8HR [facility] Last Admin: 08/11/21 05:59 Dose: 50 mg Documented by: Ceftriaxone Sodium 2 gm/ (Sodium Chloride) 100 mls @ 200 mls/hr IV ONETIME ONE Stop: 08/10/21 21:19 Last Admin: 08/10/21 21:14 Dose: 200 mls/hr Documented by: Azithromycin 500 mg/ Sodium (Chloride) 250 mls @ 250 mls/hr IV ONETIME ONE Stop: 08/10/21 21:51 Last Admin: 08/10/21 21:21 Dose: 250 mls/hr Documented by: Lactated Ringer's (Ringers, Lactated) 500 mls @ 500 mls/hr IV .BOLUS ONE Stop: 08/10/21 22:02 Last Admin: 08/10/21 21:14 Dose: 500 mls/hr Documented by: Sodium Chloride (Normal Saline) 1,000 mls @ 60 mls/hr IV ASDIRECTED [facility] Last Infusion: 08/11/21 17:44 Dose: Infused Documented by: Magnesium Oxide (Magnesium Oxide 250 Mg Tab) 1,000 mg PO Q8H [facility] Last Admin: 08/11/21 08:46 Dose: 1,000 mg Documented by: Magnesium Oxide (Magnesium Oxide 250 Mg Tab) 500 mg PO TID [facility] Last Admin: 08/12/21 21:26 Dose: 500 mg Documented by: Methylprednisolone Sodium Succinate (Methylprednisolone Sodium Succinate 125 Mg/2 Ml Sdv) 125 mg IVPUSH ONETIME ONE Stop: 08/10/21 19:45 Last Admin: 08/10/21 19:57 Dose: 125 mg Documented by: Methylprednisolone Sodium Succinate (Methylprednisolone Sodium Succinate 40 Mg/1 Ml Sdv) 40 mg IVPUSH Q6H [facility] Last Admin: 08/12/21 12:34 Dose: Not Given Documented by: Metronidazole (Metronidazole 250 Mg Tab) 250 mg PO Q6H [facility] Last Admin: 08/11/21 05:59 Dose: 250 mg Documented by: Metronidazole (Metronidazole 250 Mg Tab) 250 mg PO Q6HR [facility] Non-Formulary Medication (Meloxicam [Mobic]) 7.5 mg PO BID PRN PRN Reason: Pain Potassium Chloride (Potassium Chloride 10 Meq Tab.Er) 40 meq PO BIDMEALS [facility] Last Admin: 08/11/21 08:47 Dose: 40 meq Documented by: - Patient Data Lab Results Last 24 hrs: Laboratory Results - last 24 hr 08/13/21 08/13/21 Range/Units 06:10 06:10 WBC 13.7 H (5.0-10.0) 10^3/uL RBC 3.77 L (4.6-6.2) 10^6/uL Hgb 10.8 L (14.0-18.0) g/dL Hct 32.5 L (40.0-54.0) % MCV 86.2 (80-100) fL MCH 28.6 (27.0-34.0) pg MCHC 33.2 (33.0-35.0) g/dL Plt Count 534 H (150-450) 10^3/uL Sodium 142 (136-145) mmol/L Potassium 4.3 (3.5-5.1) mmol/L Chloride 109 H (98-107) mmol/L Carbon Dioxide 24 (21-32) mmol/L Anion Gap 13.3 H (7-13) mEq/L BUN 28 H (7-18) mg/dL Creatinine 0.83 (0.70-1.30) mg/dL Est Cr Clr Drug Dosing 47.32 mL/min Estimated GFR (MDRD) > 60 Glucose 195 H (70-99) mg/dL Calcium 8.2 L (8.5-10.1) mg/dL Magnesium 2.7 H (1.8-2.4) mg/dL Result Diagrams: 08/13/21 06:10 08/13/21 06:10 Rafa Results Last 24 hrs: Microbiology 08/10/21 19:40 Aerobic Blood Culture - Preliminary Blood - Arm, Left NO GROWTH AFTER 2 DAYS Anaerobic Blood Culture - Final Sepsis Event Note - Evaluation Sepsis Screening Result: No Definite Risk - Focused Exam Vital Signs: Vital Signs Temp Pulse Resp BP BP BP Pulse Ox 08/13/21 09:38 123/55 L 08/13/21 08:00 98.1 F 92 20 123/55 L 92 L 08/13/21 07:24 84 08/13/21 05:15 98 F 94 20 133/64 94 L 08/13/21 01:50 94 08/12/21 22:32 98 F 94 24 H 119/46 L 92 L Pulse Ox 08/13/21 09:38 08/13/21 08:00 08/13/21 07:24 94 L 08/13/21 05:15 08/13/21 01:50 92 L 08/12/21 22:32 - Problem List Review Problem List Initiated/Reviewed/Updated: Yes - My Orders Last 24 Hours: My Active Orders 08/12/21 10:10 Loperamide [Imodium] 2 mg PO Q6H PRN 08/12/21 19:22 ClonazePAM [KlonoPIN] 0.5 mg PO Q12H PRN 08/13/21 09:00 Saccharomyces Boulardii [Florastor] 500 mg PO DAILY 08/14/21 05:00 MAGNESIUM [CHEM] DAILY 08/14/21 06:00 BASIC METABOLIC PANEL,BMP [CHEM] DAILY CBC W/O DIFF,HEMOGRAM [HEME] DAILY 08/15/21 05:00 MAGNESIUM [CHEM] DAILY 08/15/21 06:00 BASIC METABOLIC PANEL,BMP [CHEM] DAILY CBC W/O DIFF,HEMOGRAM [HEME] DAILY 08/16/21 05:00 MAGNESIUM [CHEM] DAILY 08/16/21 06:00 BASIC METABOLIC PANEL,BMP [CHEM] DAILY CBC W/O DIFF,HEMOGRAM [HEME] DAILY 08/17/21 05:00 MAGNESIUM [CHEM] DAILY 08/17/21 06:00 Patient's Own Medication [Ptom] 0 each PO Mo@0600 08/18/21 05:00 MAGNESIUM [CHEM] DAILY - Plan Plan:: COPD exacerbation: Nebs , steroid IV. O2 ?? pneumonia: for Zithromax IV. Hold off Ceftriaxone due to chronic C diff. Pt reports feeling much better today. Lung mass for biopsy: scheduled for biopsy next week. I spoke to Dr. Nice from [place]. They do not have a bed at present and advised pt to come to his biopsy as outpt as already scheduled. Chronic C diff/ hypovolemia : off. IVF, Continue with Vanco and add Flagyl. Try Imodium. Pt reports that he is feeling much better today smoking: nicotine patch for home PT/ OT. May need O2 , Nebs at home DNR/DNI as per pt and his daughter.
[2021-08-13] MEDS: Azithromycin 500 MG in Sodium Chloride 0.9% 250 ML IV SCH (15:54)
[2021-08-13] MEDS: Potassium Chloride 10 MEQ Tab.ER PO SCH (21:29)
[2021-08-13] MEDS: Acetaminophen 325 MG Tab PO PRN (21:30)
[2021-08-14] MEDS: Albuterol/Ipratropium 3.0-0.5 MG/3 ML Neb Soln NEB SCH ×4 (01:40→17:50)
[2021-08-14] MEDS: Sodium Chloride 0.9% 10 ML Syringe FLUSH PRN ×3 (01:52→14:52)
[2021-08-14] MEDS: methylPREDNISolone Sodium Succinate 40 MG/1 ML SDV IVPUSH SCH ×4 (01:52→20:41)
[2021-08-14 07:15] LABS: ANION GAP 12.2 mEq/L (7-13); CHLORIDE,CL 110 mmol/L (98-107); SODIUM,NA 143 mmol/L (136-145)
[2021-08-14] MEDS: Tiotropium Inhaler 18 MCG Inhalation Powder Cap Kit of 5 INH SCH (08:34)
[2021-08-14] MEDS: Saccharomyces Boulardii (Probiotic) 250 MG Cap PO SCH (08:39)
[2021-08-14] MEDS: metroNIDAZOLE 250 MG Tab PO SCH ×4 (08:39→20:42)
[2021-08-14] MEDS: hydrALAZINE 25 MG Tab PO SCH (08:39)
[2021-08-14] MEDS: Aspirin 81 MG Tab.EC PO SCH (08:40)
[2021-08-14] MEDS: Vancomycin 125 MG Cap PO SCH ×4 (08:40→20:41)
[2021-08-14] MEDS: Gabapentin 300 MG Cap PO SCH ×3 (08:40→20:41)
[2021-08-14] MEDS: atorvaSTATin 10 MG Tab PO SCH (08:41)
[2021-08-14] MEDS: Folic Acid 1 MG Tab PO SCH (08:41)
[2021-08-14] MEDS: Nicotine 21 MG/24 Hr Patch TRDERM SCH (08:42)
[2021-08-14] MEDS: Enoxaparin 40 MG/0.4 ML Syringe SUBCUT SCH (08:43)
[2021-08-14] MEDS: Budesonide 0.5 MG/2 ML Neb Susp NEB SCH ×2 (08:46→17:50)
--- NOTE | 2021-08-14 11:11 | PCM.PN ---
- General Info Date of Service: 08/14/21 Functional Status: Reports: Tolerating Diet - Review of Systems General: Denies: Fever Pulmonary: Reports: Shortness of Breath (much impropved) Cardiovascular: Denies: Chest Pain Gastrointestinal: Reports: Diarrhea (much improved). Denies: Abdominal Pain Skin: Reports: No Symptoms Neurological: Reports: No Symptoms Psychiatric: Reports: No Symptoms - Patient Data Vitals - Most Recent: Last Vital Signs Temp 98.1 F 08/14/21 08:00 Pulse 83 08/14/21 08:00 Resp 20 08/14/21 08:00 BP 127/59 L 08/14/21 08:39 Pulse Ox 93 L 08/14/21 08:00 Weight - Most Recent: 102 lb 12.8 oz I&O - Last 24 Hours: Intake & Output 08/13/21 08/14/21 08/14/21 22:59 06:59 14:59 Intake Total 500 200 560 Output Total 200 Balance 500 0 560 Lab Results Last 24 Hours: Laboratory Results - last 24 hr 08/14/21 08/14/21 Range/Units 06:24 06:24 WBC 9.7 (5.0-10.0) 10^3/uL RBC 3.57 L (4.6-6.2) 10^6/uL Hgb 10.2 L (14.0-18.0) g/dL Hct 30.9 L (40.0-54.0) % MCV 86.6 (80-100) fL MCH 28.6 (27.0-34.0) pg MCHC 33.0 (33.0-35.0) g/dL Plt Count 497 H (150-450) 10^3/uL Sodium 143 (136-145) mmol/L Potassium 4.2 (3.5-5.1) mmol/L Chloride 110 H (98-107) mmol/L Carbon Dioxide 25 (21-32) mmol/L Anion Gap 12.2 (7-13) mEq/L BUN 28 H (7-18) mg/dL Creatinine 0.78 (0.70-1.30) mg/dL Est Cr Clr Drug Dosing 50.65 mL/min Estimated GFR (MDRD) > 60 Glucose 177 H (70-99) mg/dL Calcium 8.0 L (8.5-10.1) mg/dL Magnesium 2.4 (1.8-2.4) mg/dL Rafa Results Last 24 Hours: Microbiology 08/10/21 19:40 Aerobic Blood Culture - Preliminary Blood - Arm, Left NO GROWTH AFTER 3 DAYS Anaerobic Blood Culture - Final Med Orders - Current: Current Medications Acetaminophen (Acetaminophen 325 Mg Tab) 650 mg PO Q4H PRN PRN Reason: Pain (Mild 1-3)/fever Last Admin: 08/13/21 21:30 Dose: 650 mg Documented by: Albuterol/Ipratropium (Albuterol/Ipratropium 3.0-0.5 Mg/3 Ml Neb Soln) 3 ml NEB Q2H PRN PRN Reason: Dyspnea Albuterol/Ipratropium (Albuterol/Ipratropium 3.0-0.5 Mg/3 Ml Neb Soln) 3 ml NEB Q6HRRT [facility] Last Admin: 08/14/21 08:46 Dose: 3 ml Documented by: Aspirin (Aspirin 81 Mg Tab.Ec) 81 mg PO DAILY [facility] Last Admin: 08/14/21 08:40 Dose: 81 mg Documented by: Atorvastatin Calcium (Atorvastatin 10 Mg Tab) 10 mg PO DAILY [facility] Last Admin: 08/14/21 08:41 Dose: 10 mg Documented by: Budesonide (Budesonide 0.5 Mg/2 Ml Neb Susp) 0.5 mg NEB BIDRT [facility] Last Admin: 08/14/21 08:46 Dose: 0.5 mg Documented by: Clonazepam (Clonazepam 0.5 Mg Tab) 0.5 mg PO Q12H PRN PRN Reason: Anxiety Enoxaparin Sodium (Enoxaparin 40 Mg/0.4 Ml Syringe) 40 mg SUBCUT DAILY [facility] Last Admin: 08/14/21 08:43 Dose: 40 mg Documented by: Folic Acid (Folic Acid 1 Mg Tab) 1 mg PO DAILY [facility] Last Admin: 08/14/21 08:41 Dose: 1 mg Documented by: Gabapentin (Gabapentin 300 Mg Cap) 600 mg PO TID [facility] Last Admin: 08/14/21 08:40 Dose: 600 mg Documented by: Azithromycin 500 mg/ Sodium (Chloride) 250 mls @ 250 mls/hr IV Q24H [facility] Last Admin: 08/13/21 15:54 Dose: 250 mls/hr Documented by: Loperamide HCl (Loperamide 2 Mg Cap) 2 mg PO Q6H PRN PRN Reason: Diarrhea Methylprednisolone Sodium Succinate (Methylprednisolone Sodium Succinate 40 Mg/1 Ml Sdv) 40 mg IVPUSH Q6H [facility] Last Admin: 08/14/21 08:35 Dose: 40 mg Documented by: Metronidazole (Metronidazole 250 Mg Tab) 250 mg PO QID [facility] Last Admin: 08/14/21 08:39 Dose: 250 mg Documented by: Nicotine (Nicotine 21 Mg/24 Hr Patch) 21 mg TRDERM DAILY [facility] Last Admin: 08/14/21 08:42 Dose: 21 mg Documented by: Alendronate Sodium [ Fosamax] 70 Mg Tablet Pt Own Med* * 0 each PO Mo@0600 [facility] Potassium Chloride (Potassium Chloride 10 Meq Tab.Er) 20 meq PO BEDTIME [facility] Last Admin: 08/13/21 21:29 Dose: 20 meq Documented by: Saccharomyces Boulardii (Saccharomyces Boulardii (Probiotic) 250 Mg Cap) 500 mg PO DAILY [facility] Last Admin: 08/14/21 08:39 Dose: 500 mg Documented by: Sodium Chloride (Sodium Chloride 0.9% 10 Ml Syringe) 10 ml FLUSH ASDIRECTED PRN PRN Reason: IV Use Last Admin: 08/14/21 08:35 Dose: 10 ml Documented by: Tiotropium [place] (Tiotropium Inhaler 18 Mcg Inhalation Powder Cap Kit Of 5) 1 8 mcg INH DAILY [facility] Last Admin: 08/14/21 08:34 Dose: 18 mcg Documented by: Vancomycin HCl (Vancomycin 125 Mg Cap) 250 mg PO QID [facility] Last Admin: 08/14/21 08:40 Dose: 250 mg Documented by: Discontinued Medications Albuterol/Ipratropium (Albuterol/Ipratropium 3.0-0.5 Mg/3 Ml Neb Soln) 3 ml NEB ONETIME ONE Stop: 08/10/21 19:45 Last Admin: 08/10/21 19:57 Dose: 3 ml Documented by: Hydralazine HCl (Hydralazine 25 Mg Tab) 50 mg PO Q8HR [facility] Last Admin: 08/11/21 05:59 Dose: 50 mg Documented by: Hydralazine HCl (Hydralazine 25 Mg Tab) 50 mg PO TID [facility] Last Admin: 08/14/21 08:39 Dose: 50 mg Documented by: Ceftriaxone Sodium 2 gm/ (Sodium Chloride) 100 mls @ 200 mls/hr IV ONETIME ONE Stop: 08/10/21 21:19 Last Admin: 08/10/21 21:14 Dose: 200 mls/hr Documented by: Azithromycin 500 mg/ Sodium (Chloride) 250 mls @ 250 mls/hr IV ONETIME ONE Stop: 08/10/21 21:51 Last Admin: 08/10/21 21:21 Dose: 250 mls/hr Documented by: Lactated Ringer's (Ringers, Lactated) 500 mls @ 500 mls/hr IV .BOLUS ONE Stop: 08/10/21 22:02 Last Admin: 08/10/21 21:14 Dose: 500 mls/hr Documented by: Sodium Chloride (Normal Saline) 1,000 mls @ 60 mls/hr IV ASDIRECTED [facility] Last Infusion: 08/11/21 17:44 Dose: Infused Documented by: Magnesium Oxide (Magnesium Oxide 250 Mg Tab) 1,000 mg PO Q8H [facility] Last Admin: 08/11/21 08:46 Dose: 1,000 mg Documented by: Magnesium Oxide (Magnesium Oxide 250 Mg Tab) 500 mg PO TID [facility] Last Admin: 08/12/21 21:26 Dose: 500 mg Documented by: Methylprednisolone Sodium Succinate (Methylprednisolone Sodium Succinate 125 Mg/2 Ml Sdv) 125 mg IVPUSH ONETIME ONE Stop: 08/10/21 19:45 Last Admin: 08/10/21 19:57 Dose: 125 mg Documented by: Methylprednisolone Sodium Succinate (Methylprednisolone Sodium Succinate 40 Mg/1 Ml Sdv) 40 mg IVPUSH Q6H [facility] Last Admin: 08/12/21 12:34 Dose: Not Given Documented by: Metronidazole (Metronidazole 250 Mg Tab) 250 mg PO Q6H [facility] Last Admin: 08/11/21 05:59 Dose: 250 mg Documented by: Metronidazole (Metronidazole 250 Mg Tab) 250 mg PO Q6HR [facility] Non-Formulary Medication (Meloxicam [Mobic]) 7.5 mg PO BID PRN PRN Reason: Pain Potassium Chloride (Potassium Chloride 10 Meq Tab.Er) 40 meq PO BIDMEALS [facility] Last Admin: 08/11/21 08:47 Dose: 40 meq Documented by: - Exam Quality Assessment: Supplemental Oxygen General: Alert, Oriented Lungs: Decreased Breath Sounds Cardiovascular: Regular Rate, Regular Rhythm GI/Abdominal Exam: Soft, Non-Tender (Male) Exam: Deferred Extremities: No Pedal Edema Skin: Warm Wound/Incisions: Dressing Dry and Intact Neurological: No New Focal Deficit Psy/Mental Status: Alert, Normal Affect - Patient Data Lab Results Last 24 hrs: Laboratory Results - last 24 hr 08/14/21 08/14/21 Range/Units 06:24 06:24 WBC 9.7 (5.0-10.0) 10^3/uL RBC 3.57 L (4.6-6.2) 10^6/uL Hgb 10.2 L (14.0-18.0) g/dL Hct 30.9 L (40.0-54.0) % MCV 86.6 (80-100) fL MCH 28.6 (27.0-34.0) pg MCHC 33.0 (33.0-35.0) g/dL Plt Count 497 H (150-450) 10^3/uL Sodium 143 (136-145) mmol/L Potassium 4.2 (3.5-5.1) mmol/L Chloride 110 H (98-107) mmol/L Carbon Dioxide 25 (21-32) mmol/L Anion Gap 12.2 (7-13) mEq/L BUN 28 H (7-18) mg/dL Creatinine 0.78 (0.70-1.30) mg/dL Est Cr Clr Drug Dosing 50.65 mL/min Estimated GFR (MDRD) > 60 Glucose 177 H (70-99) mg/dL Calcium 8.0 L (8.5-10.1) mg/dL Magnesium 2.4 (1.8-2.4) mg/dL Result Diagrams: 08/14/21 06:24 08/14/21 06:24 Rafa Results Last 24 hrs: Microbiology 08/10/21 19:40 Aerobic Blood Culture - Preliminary Blood - Arm, Left NO GROWTH AFTER 3 DAYS Anaerobic Blood Culture - Final Sepsis Event Note - Evaluation Sepsis Screening Result: Sepsis Risk - Focused Exam Vital Signs: Vital Signs Temp Pulse Resp BP BP BP Pulse Ox 08/14/21 08:39 127/59 L 08/14/21 08:00 98.1 F 83 20 127/59 L 93 L 08/14/21 02:17 08/14/21 02:14 98 F 92 20 109/56 L 94 L 08/14/21 01:56 92 Pulse Ox 08/14/21 08:39 08/14/21 08:00 08/14/21 02:17 94 L 08/14/21 02:14 08/14/21 01:56 94 L - Problem List Review Problem List Initiated/Reviewed/Updated: No - My Orders Last 24 Hours: My Active Orders 08/15/21 05:00 MAGNESIUM [CHEM] DAILY 08/15/21 06:00 BASIC METABOLIC PANEL,BMP [CHEM] DAILY CBC W/O DIFF,HEMOGRAM [HEME] DAILY 08/16/21 05:00 MAGNESIUM [CHEM] DAILY 08/16/21 06:00 BASIC METABOLIC PANEL,BMP [CHEM] DAILY CBC W/O DIFF,HEMOGRAM [HEME] DAILY 08/17/21 05:00 MAGNESIUM [CHEM] DAILY 08/17/21 06:00 Patient's Own Medication [Ptom] 0 each PO Mo@0600 08/18/21 05:00 MAGNESIUM [CHEM] DAILY - Plan Plan:: COPD exacerbation: Nebs , steroid IV. O2 ?? pneumonia: for Zithromax IV. Hold off Ceftriaxone due to chronic C diff. Pt reports feeling much better today. Lung mass for biopsy: scheduled for biopsy next week. I spoke (on Aug 13 )to Dr. Nice from [facility]. They do not have a bed at present and advised pt to come to his biopsy as outpt as already scheduled. Chronic C diff/ Continue with Vanco and add Flagyl. Try Imodium. Pt reports that he is feeling much better today smoking: nicotine patch for home PT/ OT. May need O2 , Nebs at home DNR/DNI as per pt and his daughter. Pt is requesting to go home. Case darelljan is reviewing the discharge plans with pt and family.
[2021-08-14] MEDS: Acetaminophen 325 MG Tab PO PRN (12:12)
[2021-08-14] MEDS: Azithromycin 500 MG in Sodium Chloride 0.9% 250 ML IV SCH (14:55)
[2021-08-14] MEDS: Potassium Chloride 10 MEQ Tab.ER PO SCH (21:28)
[2021-08-15] MEDS: methylPREDNISolone Sodium Succinate 40 MG/1 ML SDV IVPUSH SCH ×2 (01:26→08:12)
[2021-08-15] MEDS: Albuterol/Ipratropium 3.0-0.5 MG/3 ML Neb Soln NEB SCH ×3 (01:27→13:43)
[2021-08-15] MEDS: Acetaminophen 325 MG Tab PO PRN (01:50)
[2021-08-15 06:46] LABS: ANION GAP 12.5 mEq/L (7-13); CHLORIDE,CL 110 mmol/L (98-107); SODIUM,NA 143 mmol/L (136-145)
[2021-08-15] MEDS: Budesonide 0.5 MG/2 ML Neb Susp NEB SCH (07:04)
[2021-08-15] MEDS: Enoxaparin 40 MG/0.4 ML Syringe SUBCUT SCH (08:12)
[2021-08-15] MEDS: Saccharomyces Boulardii (Probiotic) 250 MG Cap PO SCH (08:12)
[2021-08-15] MEDS: atorvaSTATin 10 MG Tab PO SCH (08:13)
[2021-08-15] MEDS: Aspirin 81 MG Tab.EC PO SCH (08:13)
[2021-08-15] MEDS: Nicotine 21 MG/24 Hr Patch TRDERM SCH (08:13)
[2021-08-15] MEDS: Gabapentin 300 MG Cap PO SCH ×2 (08:13→13:38)
[2021-08-15] MEDS: Folic Acid 1 MG Tab PO SCH (08:13)
[2021-08-15] MEDS: metroNIDAZOLE 250 MG Tab PO SCH ×2 (08:13→13:38)
[2021-08-15] MEDS: Vancomycin 125 MG Cap PO SCH ×2 (08:13→13:38)
[2021-08-15] MEDS: Tiotropium Inhaler 18 MCG Inhalation Powder Cap Kit of 5 INH SCH (08:21)
[2021-08-15] MEDS ORDERED: predniSONE 20 MG Tab PO SCH (09:00)
--- NOTE | 2021-08-15 10:49 | PCM.DCSUM1 ---
Discharge Summary - Hospital Course Free Text/Narrative:: HPI: Fly is a 81 y/o male, with a history of COPD, current smoker, and right lung mass, who presents to the ED with his granddaughter for complaints of increasing shortness of breath, cough, and rigors. The patient reports his symptoms worsened two days ago and have progressed in that time. He reports he is to undergo biopsy of his right lung mass at [facility] in 7 days. Additionally, he notes frequent diarrhea, up to five times per day; he is cu rrently being treated for C-Diff with step-down vancomycin for infection he developed in April of 2021. He attests to decreased appetite and fluid intake over the past few weeks. He denies fever, chest pressure, palpitations, nausea, vomiting, or abdominal pain. He is not on home oxygen. He denies recreational drug use as well as alcohol use. in ER, CXR showed diffuse interstitial disease and leukocytosis. COPD exacerbation: ?? pneumonia: Nebs , steroid IV. O2 for Zithromax IV. Hold off Ceftriaxone due to chronic C diff. Symptoms much improved. O2 at rest was 87% and he will need 2 LNC at rest. amd 3-4 L at activity. continue with Prednisone taper at home, along with Nebs. Lung mass for biopsy: scheduled for biopsy on Tuesday. Chronic C diff: Pt reports that symptoms have been debilitating for few months. Symptoms much improved with increasing Vanco and adding Flagyl. Imodium seems also helping too. DC mag since it may contribute to diarrhea. To continue the same for the next 2 weeks and to f/u with his PCP and GI for further management. Smoking: nicotine patch General fragility: most likely due to lung cancer, COPD and chronic C diff. Pt received PT/OT while in pt. [place] rash: noted today. Urticaria . Continue with prednisone for 6 more days and add Loratadine. F/U with PCP if not better or any change. DNR/DNI as per pt and his daughter. - Discharge Data Discharge Date: 08/15/21 Discharge Disposition: Home, Self-Care 01 Condition: Good - Referral to Home Health Date of Face to Face Encounter: 08/15/21 Primary Care Physician: PCP None - Patient Summary/Data Consults: Consultations 08/11/21 08:59 Consult to Occupational Therapy [OT Evaluation and Treatment] [CONS] Routine Consult to Physical Therapy [PT Evaluation and Treatment] [CONS] Routine 08/11/21 09:35 Consult to Occupational Therapy [OT Evaluation and Treatment] [CONS] Routine Consult to Physical Therapy [PT Evaluation and Treatment] [CONS] Routine - Patient Instructions Notify Provider of: Fever, Increased Pain, Swelling and Redness, Drainage, Nausea and/or Vomiting Other/Special Instructions: ER if not better or any change - Discharge Plan Prescriptions/Med Rec: Albuterol/Ipratropium [DuoNeb 3.0-0.5 MG/3 ML] 3 ml NEB Q6HRRT 30 Days #120 neb Nicotine [Habitrol] 21 mg TRDERM DAILY 30 Days #30 patch Loperamide [Imodium] 2 mg PO Q6H PRN 15 Days #60 cap PRN Reason: Diarrhea Loratadine 10 mg PO DAILY #7 tab.rapdis metroNIDAZOLE 250 mg PO QID 15 Days #60 tablet predniSONE 10 mg PO WITHBREAKFAST 6 Days #14 tablet Vancomycin [Vancocin 125 MG Capsule] 250 mg PO QID 15 Days #60 cap Home Medications: Home Meds Aspirin [Ecotrin EC] 81 mg PO DAILY 06/10/14 [History] Gabapentin [Neurontin] 600 mg PO TID 06/10/20 [History] Alendronate Sodium [Fosamax] 70 mg PO .Tuesday04/03/21 [History] Meloxicam [Mobic] 7.5 mg PO BIDMEALS PRN 04/03/21 [History] Folic Acid 1 mg PO DAILY 30 Days #30 tablet 04/15/21 [Rx] Fluticasone/Salmeterol [Advair 250-50] 1 puff INH Q12H 08/11/21 [History] Lactobacillus Acidophilus [Acidophilus Lactobacilli] 1 cap PO DAILY 08/11/21 [History] Potassium Chloride 20 mg PO BEDTIME 08/11/21 [History] atorvaSTATin Calcium [Atorvastatin Calcium] 10 mg PO BEDTIME 08/11/21 [History] Albuterol/Ipratropium [DuoNeb 3.0-0.5 MG/3 ML] 3 ml NEB Q6HRRT 30 Days #120 neb 08/15/21 [Rx] Loperamide [Imodium] 2 mg PO Q6H PRN 15 Days #60 cap 08/15/21 [Rx] Loratadine 10 mg PO DAILY #7 tab.rapdis 08/15/21 [Rx] Nicotine [Habitrol] 21 mg TRDERM DAILY 30 Days #30 patch 08/15/21 [Rx] Tiotropium [Spiriva HandiHaler] 18 mcg INH DAILY cap 08/15/21 [Rx] Vancomycin [Vancocin 125 MG Capsule] 250 mg PO QID 15 Days #60 cap 08/15/21 [Rx] atorvaSTATin [Lipitor] 10 mg PO DAILY tablet 08/15/21 [Rx] metroNIDAZOLE 250 mg PO QID 15 Days #60 tablet 08/15/21 [Rx] predniSONE 10 mg PO WITHBREAKFAST 6 Days #14 tablet 08/15/21 [Rx] Oxygen Therapy Mode: Nasal Cannula (2 L at rest and 3-4 at activity) Forms: ED Department Discharge Referrals: Linda Roy PA [Ordering Only Provider] - - Discharge Summary/Plan Comment DC Time >30 min.: Yes Total # of Minutes for Discharge Time: 35 min - General Info Date of Service: 08/15/21 Functional Status: Reports: Pain Controlled, Tolerating Diet - Review of Systems General: Reports: Fatigue Pulmonary: Reports: Shortness of Breath (much improved and back to baseline) Cardiovascular: Denies: Chest Pain Gastrointestinal: Reports: Diarrhea (improving). Denies: Abdominal Pain Skin: Reports: Rash (to thighs, ? urticaria ) Neurological: Reports: No Symptoms. Denies: Confusion Psychiatric: Reports: No Symptoms - Patient Data Vitals - Most Recent: Last Vital Signs Temp 98 F 08/15/21 08:00 Pulse 91 08/15/21 08:00 Resp 20 08/15/21 08:00 BP 120/67 08/15/21 08:00 Pulse Ox 91 L 08/15/21 08:00 Weight - Most Recent: 102 lb 9.6 oz I&O - Last 24 hours: Intake & Output 08/14/21 08/15/21 08/15/21 22:59 06:59 14:59 Intake Total 400 250 Output Total 250 300 Balance 150 -50 Lab Results - Last 24 hrs: Laboratory Results - last 24 hr 08/15/21 08/15/21 08/15/21 Range/Units 06:05 06:05 06:05 WBC 12.6 H (5.0-10.0) 10^3/uL RBC 3.72 L (4.6-6.2) 10^6/uL Hgb 10.6 L (14.0-18.0) g/dL Hct 32.2 L (40.0-54.0) % MCV 86.6 (80-100) fL MCH 28.5 (27.0-34.0) pg MCHC 32.9 L (33.0-35.0) g/dL Plt Count 560 H (150-450) 10^3/uL Sodium 143 (136-145) mmol/L Potassium 4.5 (3.5-5.1) mmol/L Chloride 110 H (98-107) mmol/L Carbon Dioxide 25 (21-32) mmol/L Anion Gap 12.5 (7-13) mEq/L BUN 27 H (7-18) mg/dL Creatinine 0.81 (0.70-1.30) mg/dL Est Cr Clr Drug Dosing 48.68 mL/min Estimated GFR (MDRD) > 60 Glucose 232 H (70-99) mg/dL Calcium 7.9 L (8.5-10.1) mg/dL Magnesium 2.4 (1.8-2.4) mg/dL CHERYL Results - Last 24 hrs: Microbiology 08/10/21 19:40 Aerobic Blood Culture - Preliminary Blood - Arm, Left NO GROWTH AFTER 4 DAYS Anaerobic Blood Culture - Final Med Orders - Current: Current Medications Acetaminophen (Acetaminophen 325 Mg Tab) 650 mg PO Q4H PRN PRN Reason: Pain (Mild 1-3)/fever Last Admin: 08/15/21 01:50 Dose: 650 mg Documented by: Albuterol/Ipratropium (Albuterol/Ipratropium 3.0-0.5 Mg/3 Ml Neb Soln) 3 ml NEB Q2H PRN PRN Reason: Dyspnea Albuterol/Ipratropium (Albuterol/Ipratropium 3.0-0.5 Mg/3 Ml Neb Soln) 3 ml NEB Q6HRRT [facility] Last Admin: 08/15/21 07:04 Dose: 3 ml Documented by: Aspirin (Aspirin 81 Mg Tab.Ec) 81 mg PO DAILY [facility] Last Admin: 08/15/21 08:13 Dose: 81 mg Documented by: Atorvastatin Calcium (Atorvastatin 10 Mg Tab) 10 mg PO DAILY [facility] Last Admin: 08/15/21 08:13 Dose: 10 mg Documented by: Budesonide (Budesonide 0.5 Mg/2 Ml Neb Susp) 0.5 mg NEB BIDRT [facility] Last Admin: 08/15/21 07:04 Dose: 0.5 mg Documented by: Enoxaparin Sodium (Enoxaparin 40 Mg/0.4 Ml Syringe) 40 mg SUBCUT DAILY [facility] Last Admin: 08/15/21 08:12 Dose: 40 mg Documented by: Folic Acid (Folic Acid 1 Mg Tab) 1 mg PO DAILY [facility] Last Admin: 08/15/21 08:13 Dose: 1 mg Documented by: Gabapentin (Gabapentin 300 Mg Cap) 600 mg PO TID [facility] Last Admin: 08/15/21 08:13 Dose: 600 mg Documented by: Azithromycin 500 mg/ Sodium (Chloride) 250 mls @ 250 mls/hr IV Q24H [facility] Last Infusion: 08/14/21 16:09 Dose: Infused Documented by: Loperamide HCl (Loperamide 2 Mg Cap) 2 mg PO Q6H PRN PRN Reason: Diarrhea Metronidazole (Metronidazole 250 Mg Tab) 250 mg PO QID [facility] Last Admin: 08/15/21 08:13 Dose: 250 mg Documented by: Nicotine (Nicotine 21 Mg/24 Hr Patch) 21 mg TRDERM DAILY [facility] Last Admin: 08/15/21 08:13 Dose: 21 mg Documented by: Alendronate Sodium [ Fosamax] 70 Mg Tablet Pt Own Med* * 0 each PO Mo@0600 [facility] Potassium Chloride (Potassium Chloride 10 Meq Tab.Er) 20 meq PO BEDTIME [facility] Last Admin: 08/14/21 21:28 Dose: 20 meq Documented by: Prednisone (Prednisone 20 Mg Tab) 40 mg PO WITHBREAKFAST [facility] Saccharomyces Boulardii (Saccharomyces Boulardii (Probiotic) 250 Mg Cap) 500 mg PO DAILY [facility] Last Admin: 08/15/21 08:12 Dose: 500 mg Documented by: Sodium Chloride (Sodium Chloride 0.9% 10 Ml Syringe) 10 ml FLUSH ASDIRECTED PRN PRN Reason: IV Use Last Admin: 08/14/21 14:52 Dose: 10 ml Documented by: Tiotropium [place] (Tiotropium Inhaler 18 Mcg Inhalation Powder Cap Kit Of 5) 18 mcg INH DAILY [facility] Last Admin: 08/15/21 08:21 Dose: 18 mcg Documented by: Vancomycin HCl (Vancomycin 125 Mg Cap) 250 mg PO QID [facility] Last Admin: 08/15/21 08:13 Dose: 250 mg Documented by: Discontinued Medications Albuterol/Ipratropium (Albuterol/Ipratropium 3.0-0.5 Mg/3 Ml Neb Soln) 3 ml NEB ONETIME ONE Stop: 08/10/21 19:45 Last Admin: 08/10/21 19:57 Dose: 3 ml Documented by: Clonazepam (Clonazepam 0.5 Mg Tab) 0.5 mg PO Q12H PRN PRN Reason: Anxiety Hydralazine HCl (Hydralazine 25 Mg Tab) 50 mg PO Q8HR [facility] Last Admin: 08/11/21 05:59 Dose: 50 mg Documented by: Hydralazine HCl (Hydralazine 25 Mg Tab) 50 mg PO TID [facility] Last Admin: 08/14/21 08:39 Dose: 50 mg Documented by: Ceftriaxone Sodium 2 gm/ (Sodium Chloride) 100 mls @ 200 mls/hr IV ONETIME ONE Stop: 08/10/21 21:19 Last Admin: 08/10/21 21:14 Dose: 200 mls/hr Documented by: Azithromycin 500 mg/ Sodium (Chloride) 250 mls @ 250 mls/hr IV ONETIME ONE Stop: 08/10/21 21:51 Last Admin: 08/10/21 21:21 Dose: 250 mls/hr Documented by: Lactated Ringer's (Ringers, Lactated) 500 mls @ 500 mls/hr IV .BOLUS ONE Stop: 08/10/21 22:02 Last Admin: 08/10/21 21:14 Dose: 500 mls/hr Documented by: Sodium Chloride (Normal Saline) 1,000 mls @ 60 mls/hr IV ASDIRECTED [facility] Last Infusion: 08/11/21 17:44 Dose: Infused Documented by: Magnesium Oxide (Magnesium Oxide 250 Mg Tab) 1,000 mg PO Q8H [facility] Last Admin: 08/11/21 08:46 Dose: 1,000 mg Documented by: Magnesium Oxide (Magnesium Oxide 250 Mg Tab) 500 mg PO TID [facility] Last Admin: 08/12/21 21:26 Dose: 500 mg Documented by: Methylprednisolone Sodium Succinate (Methylprednisolone Sodium Succinate 125 Mg/2 Ml Sdv) 125 mg IVPUSH ONETIME ONE Stop: 08/10/21 19:45 Last Admin: 08/10/21 19:57 Dose: 125 mg Documented by: Methylprednisolone Sodium Succinate (Methylprednisolone Sodium Succinate 40 Mg/1 Ml Sdv) 40 mg IVPUSH Q6H [facility] Last Admin: 08/12/21 12:34 Dose: Not Given Documented by: Methylprednisolone Sodium Succinate (Methylprednisolone Sodium Succinate 40 Mg/1 Ml Sdv) 40 mg IVPUSH Q6H [facility] Last Admin: 08/15/21 08:12 Dose: 40 mg Documented by: Metronidazole (Metronidazole 250 Mg Tab) 250 mg PO Q6H [facility] Last Admin: 08/11/21 05:59 Dose: 250 mg Documented by: Metronidazole (Metronidazole 250 Mg Tab) 250 mg PO Q6HR [facility] Non-Formulary Medication (Meloxicam [Mobic]) 7.5 mg PO BID PRN PRN Reason: Pain Potassium Chloride (Potassium Chloride 10 Meq Tab.Er) 40 meq PO BIDMEALS [facility] Last Admin: 08/11/21 08:47 Dose: 40 meq Documented by: - Exam Quality Assessment: Reports: Supplemental Oxygen General: Reports: Alert, Oriented, Mild Distress HEENT: Reports: EOMI Lungs: Reports: Decreased Breath Sounds Cardiovascular: Reports: Regular Rate, Regular Rhythm GI/Abdominal Exam: Soft Rectal (Males) Exam: Deferred Extremities: No Pedal Edema Skin: Reports: Rash (macular rash B thighs. ) Neurological: Reports: No New Focal Deficit Psy/Mental Status: Reports: Alert, Normal Affect
[2021-08-15 11:50] VITALS: BP 133/60
[2021-08-15 13:48] VITALS: PULSE 91
[2021-08-17] MEDS ORDERED: ALENDRONATE SODIUM 70 MG PO SCH (06:00)
== END 2021-08-15 16:55 | disposition home or self-care (01) | DRG 871 ==
LOC: DL.ED 18:56 → DL.MS 23:01 → EEVIPCON 23:01
PROVIDERS: ADMIT Internal Medicine; ATTEND Internal Medicine
DX: A41.9 Sepsis, unspecified organism (principal); J18.9 Pneumonia, unspecified organism; J96.21 Acute and chronic respiratory failure with hypoxia; J44.0 Chronic obstructive pulmonary disease with (acute) lower respiratory infection; A04.72 Enterocolitis due to Clostridium difficile, not specified as recurrent; C34.90 Malignant neoplasm of unspecified part of unspecified bronchus or lung; J44.1 Chronic obstructive pulmonary disease with (acute) exacerbation; Z87.01 Personal history of pneumonia (recurrent); Z66 Do not resuscitate; H91.90 Unspecified hearing loss, unspecified ear; H54.7 Unspecified visual loss; E78.00 Pure hypercholesterolemia, unspecified; Z20.822 Contact with and (suspected) exposure to COVID-19; K59.09 Other constipation; I10 Essential (primary) hypertension; K21.9 Gastro-esophageal reflux disease without esophagitis; E61.1 Iron deficiency; E86.0 Dehydration; L50.9 Urticaria, unspecified; F17.210 Nicotine dependence, cigarettes, uncomplicated; R15.9 Full incontinence of feces; R32 Unspecified urinary incontinence; Z79.82 Long term (current) use of aspirin; Z79.899 Other long term (current) drug therapy; Z98.49 Cataract extraction status, unspecified eye; Z79.52 Long term (current) use of systemic steroids; Z28.82 Immunization not carried out because of caregiver refusal; Z79.51 Long term (current) use of inhaled steroids
CPT/HCPCS: 36415; 71045; 80053; 83605; 85025; 87040; 87635; 94640; 96365; 96367; 96375; 99285; J0456; J0696; J2930; J7050; J7120; 80048; 83735; 85027; 97166-GO; 97530-GO; 97535-GO; A9270-GY; J1650; J2920; J7030; J7512; J7620-GY; U0002

== ENCOUNTER 2021-12-22 11:18 | Emergency (ER) | payer OTHER, MEDICAID ==
[2021-12-22 12:02] VITALS: BP 139/99; PULSE 96
== END 2021-12-22 21:11 | disposition left against medical advice (07) ==
LOC: DL.ED 11:18
DX: Z53.21 Procedure and treatment not carried out due to patient leaving prior to being seen by health care provider (principal)
CPT/HCPCS: 36415; 87040

== ENCOUNTER 2021-12-22 11:40 | Inpatient (IN) | payer OTHER, MEDICAID ==
[2021-12-22 12:37] LABS: ANION GAP 13.1 mEq/L (7-13); CHLORIDE,CL 106 mmol/L (98-107); SODIUM,NA 145 mmol/L (136-145)
[2021-12-22 12:57] LABS: BASE EXCESS VENOUS 3.3 mmol/l ((-2)-(+3)); BICARBONATE,VENOUS 28 mmol/l (19-25); O2 DELIVERY DEVICE NASAL CANNULA; O2 SATURATION VENOUS 32.5 % (60-80); PCO2 VENOUS 45 mmHg (41-51); PH,VENOUS 7.41 (7.31-7.41); PO2 VENOUS 22 mmHg (35-42)
[2021-12-22 12:59] LABS: O2 FLOW RATE 4
[2021-12-22] MEDS ORDERED: Mupirocin Oint 22 GM Tube TOP ONE (14:28)
[2021-12-22] MEDS ORDERED: Diphtheria,Pertussis(Acell),Tetanus Vaccine 0.5 ML Syringe IM ONE (14:44)
[2021-12-22] MEDS ORDERED: Loperamide 2 MG Cap PO PRN (15:59)
[2021-12-22] MEDS ORDERED: Non-Formulary Medication 1 Each (Alendronate Sodium [Fosamax] 70 MG Tablet) PO SCH (16:00)
[2021-12-22] MEDS ORDERED: Sodium Chloride 0.9% 10 ML Syringe FLUSH PRN (16:01)
[2021-12-22] MEDS ORDERED: Acetaminophen 325 MG Tab PO PRN (16:01)
[2021-12-22] MEDS ORDERED: Docusate Sodium 100 MG Cap PO PRN (16:01)
[2021-12-22] MEDS ORDERED: Ondansetron 4 MG/2 ML SDV IVPUSH PRN (16:01)
[2021-12-22] MEDS ORDERED: Acetaminophen/HYDROcodone 325-10 MG Tab PO PRN (16:01)
[2021-12-22] MEDS ORDERED: Albuterol/Ipratropium 3.0-0.5 MG/3 ML Neb Soln NEB PRN (16:01)
[2021-12-22] MEDS ORDERED: Bisacodyl 5 MG Tab PO PRN (16:01)
[2021-12-22] MEDS ORDERED: HYDROmorphone 0.5 MG/0.5 ML Syringe IVPUSH PRN (16:01)
[2021-12-22] MEDS ORDERED: Albuterol 6.7 GM Inhaler INH PRN (17:18)
[2021-12-22] MEDS ORDERED: DICLOFENAC SODIUM 2 GM TP PRN (17:18)
[2021-12-22] MEDS ORDERED: VANCOmycin 1.5 GM/300 ML 1.5 GM in Premix Bag 1 BAG IV SCH (17:30)
[2021-12-22] MEDS ORDERED: Oxymetazoline 0.05% Nasal Spray 30 ML Bottle NAS PRN (18:00)
[2021-12-22] MEDS: Formoterol/Mometasone 200-5 MCG 8.8 GM Inhaler IH SCH ×3 (18:19→20:09)
[2021-12-22] MEDS: Piperacillin/Tazobactam 3.375 GM in Sodium Chloride 0.9% 100 ML IV SCH (18:26)
[2021-12-22] MEDS: Albuterol/Ipratropium 3.0-0.5 MG/3 ML Neb Soln NEB SCH (18:26)
[2021-12-22] MEDS: Gabapentin 300 MG Cap PO SCH (20:04)
[2021-12-22] MEDS: atorvaSTATin 10 MG Tab PO SCH (20:04)
[2021-12-22] MEDS ORDERED: LACTOSE REDUCED FOOD PO SCH (21:00)
[2021-12-22] MEDS ORDERED: Non-Formulary Medication 1 Each (Potassium Chloride [Potassium Chloride] 20 MEQ Tablet.Er) PO SCH (21:00)
[2021-12-23] MEDS: Piperacillin/Tazobactam 3.375 GM in Sodium Chloride 0.9% 100 ML IV SCH ×4 (00:45→17:56)
[2021-12-23] MEDS: Albuterol/Ipratropium 3.0-0.5 MG/3 ML Neb Soln NEB SCH ×4 (01:17→17:57)
[2021-12-23 07:11] LABS: ANION GAP 12.6 mEq/L (7-13); CHLORIDE,CL 110 mmol/L (98-107); SODIUM,NA 146 mmol/L (136-145)
[2021-12-23] MEDS: Folic Acid 1 MG Tab PO SCH (08:32)
[2021-12-23] MEDS: Gabapentin 300 MG Cap PO SCH ×3 (08:32→20:00)
[2021-12-23] MEDS: Loratadine 10 MG Tab PO SCH (08:32)
[2021-12-23] MEDS: Aspirin 81 MG Tab.EC PO SCH (08:32)
[2021-12-23] MEDS: Megestrol Susp 40 MG/ML 10 ML UD Cup PO SCH (08:33)
[2021-12-23] MEDS: Nicotine 21 MG/24 Hr Patch TRDERM SCH (08:34)
[2021-12-23] MEDS: Formoterol/Mometasone 200-5 MCG 8.8 GM Inhaler IH SCH ×2 (08:36→19:59)
[2021-12-23] MEDS: Tiotropium Inhaler 18 MCG Inhalation Powder Cap Kit of 5 INH SCH (08:41)
[2021-12-23] MEDS ORDERED: LACTOBACILLUS ACIDOPHILUS PO SCH (09:00)
[2021-12-23] MEDS: Mupirocin Oint 22 GM Tube TOP SCH ×2 (13:59→19:59)
[2021-12-23] MEDS: atorvaSTATin 10 MG Tab PO SCH (20:00)
[2021-12-24] MEDS: Piperacillin/Tazobactam 3.375 GM in Sodium Chloride 0.9% 100 ML IV SCH ×2 (00:08→05:33)
[2021-12-24] MEDS: Albuterol/Ipratropium 3.0-0.5 MG/3 ML Neb Soln NEB SCH ×3 (00:08→13:27)
[2021-12-24 06:42] LABS: ANION GAP 10.5 mEq/L (7-13); CHLORIDE,CL 111 mmol/L (98-107); SODIUM,NA 144 mmol/L (136-145)
[2021-12-24] MEDS: Nicotine 21 MG/24 Hr Patch TRDERM SCH (08:44)
[2021-12-24] MEDS: Gabapentin 300 MG Cap PO SCH (08:45)
[2021-12-24] MEDS: Folic Acid 1 MG Tab PO SCH (08:45)
[2021-12-24] MEDS: Tiotropium Inhaler 18 MCG Inhalation Powder Cap Kit of 5 INH SCH (08:45)
[2021-12-24] MEDS: Loratadine 10 MG Tab PO SCH (08:45)
[2021-12-24] MEDS: Aspirin 81 MG Tab.EC PO SCH (08:45)
[2021-12-24] MEDS: Megestrol Susp 40 MG/ML 10 ML UD Cup PO SCH (08:45)
[2021-12-24] MEDS: Formoterol/Mometasone 200-5 MCG 8.8 GM Inhaler IH SCH (08:46)
[2021-12-24] MEDS: Mupirocin Oint 22 GM Tube TOP SCH (08:46)
[2021-12-24 12:13] VITALS: BP 135/47; PULSE 88
== END 2021-12-24 11:40 | disposition home or self-care (01) | DRG 603 ==
LOC: DL.ED 11:40 → DL.MS 14:45 → DL.ED 14:59
PROVIDERS: ADMIT Internal Medicine; ATTEND Internal Medicine
DX: L03.211 Cellulitis of face (principal); C34.90 Malignant neoplasm of unspecified part of unspecified bronchus or lung; J96.10 Chronic respiratory failure, unspecified whether with hypoxia or hypercapnia; E46 Unspecified protein-calorie malnutrition; Z68.1 Body mass index [BMI] 19.9 or less, adult; T20.09XA Burn of unspecified degree of multiple sites of head, face, and neck, initial encounter; F17.210 Nicotine dependence, cigarettes, uncomplicated; E78.5 Hyperlipidemia, unspecified; D50.9 Iron deficiency anemia, unspecified; X08.8XXA Exposure to other specified smoke, fire and flames, initial encounter; M81.0 Age-related osteoporosis without current pathological fracture; Z66 Do not resuscitate; K59.09 Other constipation; G62.9 Polyneuropathy, unspecified; J44.9 Chronic obstructive pulmonary disease, unspecified; H54.7 Unspecified visual loss; H91.90 Unspecified hearing loss, unspecified ear; E78.00 Pure hypercholesterolemia, unspecified; R32 Unspecified urinary incontinence; F17.200 Nicotine dependence, unspecified, uncomplicated; B95.61 Methicillin susceptible Staphylococcus aureus infection as the cause of diseases classified elsewhere; R15.9 Full incontinence of feces; B02.9 Zoster without complications; I10 Essential (primary) hypertension; K21.9 Gastro-esophageal reflux disease without esophagitis; Z89.021 Acquired absence of right finger(s); E61.1 Iron deficiency; Z79.82 Long term (current) use of aspirin; Z99.81 Dependence on supplemental oxygen; Z79.899 Other long term (current) drug therapy; Z20.822 Contact with and (suspected) exposure to COVID-19
CPT/HCPCS: 36415; 71045; 80048; 80053; 80307; 82040; 82150; 82803; 83605; 83690; 83735; 85025; 85651; 86140; 87070; 87077; 87186; 87205; 90715; 94640; 97161-GP; 97165-GO; 99222; 99232; 99238; A9270-GY; J2543; J3370; J7050; J7620-GY; U0002

== ENCOUNTER 2022-11-22 11:02 | Emergency (ER) | payer MEDICARE, MEDICAID ==
[2022-11-22] MEDS ORDERED: Sodium Chloride 0.9% 10 ML Syringe FLUSH PRN (11:04)
[2022-11-22 12:02] LABS: CORONAVIRUS COVID-19 NAA NEGATIVE (NEGATIVE); RESPIRATORY SYNCYTIAL VIR NAA NEGATIVE (NEGATIVE)
[2022-11-22 12:09] LABS: ANION GAP 16.7 mEq/L (7-13)
[2022-11-22] MEDS ORDERED: Iopamidol 612 MG/ML 100 ML Bottle IVPUSH ONE (12:18)
[2022-11-22] MEDS ORDERED: Levofloxacin/Dextrose 5%-Water 750 MG in Premix Bag 1 BAG IV ONE (13:34)
[2022-11-22] MEDS ORDERED: Sodium Chloride 0.9% 1,000 ML IV ONE (13:34)
[2022-11-22] MEDS ORDERED: Lactulose Soln 10 GM/15 ML 30 ML UD Cup PO ONE (13:36)
[2022-11-22 15:24] VITALS: BP 111/63; PULSE 96
== END 2022-11-22 19:20 | disposition home or self-care (01) ==
LOC: DL.ED 11:02
DX: J18.9 Pneumonia, unspecified organism (principal); K59.00 Constipation, unspecified; J44.9 Chronic obstructive pulmonary disease, unspecified; E78.00 Pure hypercholesterolemia, unspecified; I10 Essential (primary) hypertension; Z72.0 Tobacco use; Z79.82 Long term (current) use of aspirin; Z79.899 Other long term (current) drug therapy; Z20.822 Contact with and (suspected) exposure to COVID-19
CPT/HCPCS: 0241U; 36415; 71045; 71260; 74177; 80053; 83605; 83880; 84145; 85025; 86140; 87040; 93005; 96365; 99285; A9270; J1956; J3490; J7030; Q9967

== ENCOUNTER 2023-02-10 14:39 | Emergency (ER) | payer MEDICARE, MEDICAID ==
[2023-02-10 15:04] VITALS: BP 147/109; PULSE 103
== END 2023-02-10 16:02 | disposition home or self-care (01) ==
LOC: DL.ED 14:39
DX: S70.02XA Contusion of left hip, initial encounter (principal); S80.12XA Contusion of left lower leg, initial encounter; R53.1 Weakness; K21.9 Gastro-esophageal reflux disease without esophagitis; R29.6 Repeated falls; E78.00 Pure hypercholesterolemia, unspecified; I10 Essential (primary) hypertension; J44.9 Chronic obstructive pulmonary disease, unspecified; F17.210 Nicotine dependence, cigarettes, uncomplicated; Z79.82 Long term (current) use of aspirin; Z79.51 Long term (current) use of inhaled steroids; Z79.899 Other long term (current) drug therapy; W19.XXXA Unspecified fall, initial encounter
CPT/HCPCS: 73562-LT; 99283

== ENCOUNTER 2023-03-31 20:30 | Emergency (ER) | payer MEDICARE, MEDICAID ==
[2023-03-31] MEDS ORDERED: Sodium Chloride 0.9% 10 ML Syringe FLUSH PRN (20:51)
[2023-03-31] MEDS ORDERED: Acetaminophen 500 MG Tab PO ONE (20:56)
[2023-03-31 21:03] LABS: HEMATOCRIT 37.5 % (40.0-54.0); HEMOGLOBIN 13.6 g/dL (14.0-18.0); MEAN CORPUSCULAR HEMOGLOBIN 37.8 pg (27.0-34.0); MEAN CORPUSCULAR HGB CONC 36.3 g/dL (33.0-35.0); MEAN CORPUSCULAR VOLUME 104.2 fL (80-100); PLATELET COUNT,PLT 272 10^3/uL (150-450); WHITE BLOOD CELL COUNT,WBC 8.6 10^3/uL (5.0-10.0)
[2023-03-31 21:06] LABS: BASOPHILS PERCENT AUTO 0.2 % (0.0-1.0); EOSINOPHILS PERCENT AUTO 2.7 % (1.0-3.0); LYMPHOCYTES PERCENT AUTO 24.5 % (20.5-50.1); MONOCYTES PERCENT AUTO 14.7 % (2-8); NEUTROPHILS PERCENT AUTO 57.9 % (42.2-75.2)
[2023-03-31 21:17] LABS: ANION GAP 16.2 mEq/L (7-13); CALCIUM 9.4 mg/dL (8.5-10.1); CREATININE 1.28 mg/dL (0.70-1.30); EST CRCL DRUG DOSING (CG) 42.76 mL/min; POTASSIUM,K 4.2 mmol/L (3.5-5.1)
[2023-03-31 21:24] LABS: BAND PERCENT MAN 2 %; EOSINOPHILS PERCENT MAN 1 % (1-3); LYMPHOCYTES PERCENT MAN 26 % (20-50); MONOCYTES PERCENT MAN 12 % (2-8); SEG NEUTROPHILS PERCENT MAN 59 % (42-75)
[2023-03-31 21:33] VITALS: BP 141/79; PULSE 94
[2023-03-31] MEDS ORDERED: Ciprofloxacin 500 MG Tab PO ONE (21:58)
== END 2023-03-31 22:30 ==
LOC: DL.ED 20:30
DX: S20.224A Contusion of middle back wall of thorax, initial encounter (principal); J18.9 Pneumonia, unspecified organism; E78.00 Pure hypercholesterolemia, unspecified; I10 Essential (primary) hypertension; J44.9 Chronic obstructive pulmonary disease, unspecified; Z79.82 Long term (current) use of aspirin; Z79.899 Other long term (current) drug therapy; W18.30XA Fall on same level, unspecified, initial encounter; Y93.01 Activity, walking, marching and hiking
CPT/HCPCS: 36415; 71046; 80048; 84484; 85025; 94762; 99284; A9270; J3490

== ENCOUNTER 2023-04-03 02:14 | Emergency (ER) | payer MEDICAID, MEDICARE ==
[2023-04-03] MEDS ORDERED: Sodium Chloride 0.9% 10 ML Syringe FLUSH PRN (02:46)
[2023-04-03] MEDS ORDERED: Levofloxacin/Dextrose 5%-Water 750 MG in Premix Bag 1 BAG IV ONE (02:53)
[2023-04-03] MEDS ORDERED: Piperacillin/Tazobactam 4.5 GM in Sodium Chloride 0.9% 100 ML IV ONE (02:53)
[2023-04-03] MEDS ORDERED: Aspirin 81 MG Tab.Chew PO ONE (02:56)
[2023-04-03] MEDS ORDERED: Morphine 4 MG/ML Syringe IVPUSH ONE (02:56)
[2023-04-03] MEDS ORDERED: Ondansetron 4 MG/2 ML SDV IVPUSH ONE (02:56)
[2023-04-03 02:57] VITALS: BP 128/69; PULSE 114
[2023-04-03] MEDS ORDERED: Sodium Chloride 0.9% 1,000 ML IV ONE (02:58)
[2023-04-03 03:29] LABS: BASOPHILS PERCENT AUTO 0.4 % (0.0-1.0); EOSINOPHILS PERCENT AUTO 2.9 % (1.0-3.0); HEMATOCRIT 38.2 % (40.0-54.0); HEMOGLOBIN 12.6 g/dL (14.0-18.0); LYMPHOCYTES PERCENT AUTO 18.7 % (20.5-50.1); MEAN CORPUSCULAR HEMOGLOBIN 33.8 pg (27.0-34.0); MEAN CORPUSCULAR VOLUME 102.4 fL (80-100); MONOCYTES PERCENT AUTO 13.5 % (2-8); NEUTROPHILS PERCENT AUTO 64.5 % (42.2-75.2); PLATELET COUNT,PLT 291 10^3/uL (150-450); RED BLOOD CELL COUNT 3.73 10^6/uL (4.6-6.2)
[2023-04-03 03:30] LABS: O2 DELIVERY DEVICE NASAL CANNULA
[2023-04-03 03:43] LABS: BASE EXCESS VENOUS -1.5 mmol/l ((-2)-(+3)); BICARBONATE,VENOUS 24 mmol/l (19-25); O2 SATURATION VENOUS 41.5 % (60-80); PCO2 VENOUS 46 mmHg (41-51); PH,VENOUS 7.34 (7.31-7.41); PO2 VENOUS 30 mmHg (35-42)
[2023-04-03 04:08] LABS: ALANINE AMINOTRANSFERASE,ALT 20 U/L (16-63); ALBUMIN 3.3 g/dL (3.4-5.0); ALKALINE PHOSPHATASE 115 U/L (46-116); ASPARTATE AMNIOTRANSFERASE,AST 21 U/L (15-37); BILIRUBIN TOTAL 0.3 mg/dL (0.2-1.0); BLOOD UREA NITROGEN,BUN 22 mg/dL (7-18); BUN/CREATININE RATIO 21.8 (No establ ref range); CALCIUM 9.6 mg/dL (8.5-10.1); CARBON DIOXIDE,CO2 24 mmol/L (21-32); CHLORIDE,CL 105 mmol/L (98-107); CREATININE 1.01 mg/dL (0.70-1.30); EST CRCL DRUG DOSING (CG) 53.71 mL/min; GLUCOSE RANDOM 105 mg/dL (70-99); PROTEIN TOTAL,TP 7.3 g/dL (6.4-8.2); SODIUM,NA 142 mmol/L (136-145)
[2023-04-03 04:10] LABS: B-TYPE NATRIURETIC PEPTIDE,BNP 263 pg/ml (0-100)
[2023-04-03 04:14] LABS: A/G RATIO 0.83; ESTIMATED GFR 75 mL/min (>=60)
[2023-04-03] MEDS ORDERED: Iopamidol 755 Mg/ML 100 ML Bottle IVPUSH ONE (04:22)
[2023-04-03] MEDS ORDERED: Take Home: Acetaminophen/oxyCODONE 325-5 MG, 5 Tab Pack PO ONE (08:07)
== END 2023-04-03 06:52 ==
LOC: DL.ED 02:14
DX: J18.9 Pneumonia, unspecified organism (principal); R06.89 Other abnormalities of breathing; E78.00 Pure hypercholesterolemia, unspecified; I10 Essential (primary) hypertension; J44.9 Chronic obstructive pulmonary disease, unspecified; Z79.899 Other long term (current) drug therapy
CPT/HCPCS: 36415; 71275; 80053; 82803; 83605; 83880; 84145; 84484; 85025; 87040; 93005; 93010; 96361; 96365; 96368; 96375; 99284; 99291-25; A9270-GY; J1956; J2270; J2405; J2543; J3490; J7030

== ENCOUNTER 2024-02-03 11:32 | Inpatient (IN) | payer OTHER ==
[2024-02-03] MEDS: Sodium Chloride 0.9% 10 ML Syringe FLUSH PRN (11:05)
[2024-02-03 11:24] LABS: BASOPHILS PERCENT AUTO 0.2 % (0.0-1.0); EOSINOPHILS PERCENT AUTO 0.1 % (1.0-3.0); HEMATOCRIT 42.3 % (40.0-54.0); HEMOGLOBIN 13.9 g/dL (14.0-18.0); LYMPHOCYTES PERCENT AUTO 9.2 % (20.5-50.1); MEAN CORPUSCULAR HEMOGLOBIN 34.5 pg (27.0-34.0); MEAN CORPUSCULAR HGB CONC 32.9 g/dL (33.0-35.0); MONOCYTES PERCENT AUTO 9.9 % (2-8); NEUTROPHILS PERCENT AUTO 80.6 % (42.2-75.2); PLATELET COUNT,PLT 226 10^3/uL (150-450); RED BLOOD CELL COUNT 4.03 10^6/uL (4.6-6.2); WHITE BLOOD CELL COUNT,WBC 11.7 10^3/uL (5.0-10.0)
[2024-02-03] MEDS: Albuterol/Ipratropium 3.0-0.5 MG/3 ML Neb Soln ONE (11:27)
[2024-02-03 11:49] LABS: ALBUMIN 3.9 g/dL (3.4-5.0); ANION GAP 16.3 mEq/L (7-13); BILIRUBIN TOTAL 0.6 mg/dL (0.2-1.0); BUN/CREATININE RATIO 20.4 (No establ ref range); CALCIUM 9.8 mg/dL (8.5-10.1); CREATININE 1.03 mg/dL (0.70-1.30); EST CRCL DRUG DOSING (CG) 45.14 mL/min; POTASSIUM,K 4.3 mmol/L (3.5-5.1); PROTEIN TOTAL,TP 7.8 g/dL (6.4-8.2)
[2024-02-03 11:50] LABS: O2 DELIVERY DEVICE NASAL CANNULA
[2024-02-03] MEDS: Albuterol/Ipratropium 3.0-0.5 MG/3 ML Neb Soln NEB ONE (11:50)
[2024-02-03 11:51] LABS: BASE EXCESS VENOUS 0.4 mmol/l ((-2)-(+3)); BICARBONATE,VENOUS 25 mmol/l (19-25); O2 SATURATION VENOUS 42.6 % (60-80); PCO2 VENOUS 44 mmHg (41-51); PH,VENOUS 7.38 (7.31-7.41); PO2 VENOUS 29 mmHg (35-42)
[2024-02-03 12:02] LABS: CORONAVIRUS COVID-19 NAA NEGATIVE (NEGATIVE); INFLUENZA A NAA NEGATIVE (NEGATIVE); INFLUENZA B NAA NEGATIVE (NEGATIVE); RESPIRATORY SYNCYTIAL VIR NAA NEGATIVE (NEGATIVE)
[2024-02-03] MEDS: Azithromycin 500 MG in Sodium Chloride 0.9% 250 ML IV ONE (12:28)
[2024-02-03] MEDS: cefTRIAXone 1 GM Vial IVPUSH ONE (12:28)
[2024-02-03] MEDS: Sodium Chloride 0.9% 1,000 ML IV ONE (12:29)
[2024-02-03] MEDS ORDERED: Docusate Sodium 100 MG Cap PO PRN (13:10)
[2024-02-03] MEDS ORDERED: Bisacodyl 5 MG Tab PO PRN (13:10)
[2024-02-03] MEDS ORDERED: Albuterol 0.083% 2.5 MG/3 ML Neb Soln NEB PRN (13:10)
[2024-02-03] MEDS ORDERED: Non-Formulary Medication 1 Each (Alendronate Sodium [Fosamax] 70 MG Tablet) PO SCH (13:15)
[2024-02-03] MEDS: Sodium Chloride 0.9% 1,000 ML IV SCH (15:49)
[2024-02-03] MEDS: Albuterol/Ipratropium 3.0-0.5 MG/3 ML Neb Soln NEB SCH (17:10)
[2024-02-03] MEDS ORDERED: Albuterol/Ipratropium 3.0-0.5 MG/3 ML Neb Soln NEB SCH (18:00)
[2024-02-03] MEDS ORDERED: Non-Formulary Medication 1 Each (Gabapentin 600 MG Tablet) PO SCH (18:00)
[2024-02-03 18:03] LABS: APPEARANCE,URINE CLEAR (CLEAR); BILIRUBIN,URINE SMALL (NEGATIVE); COLOR,URINE YELLOW (YELLOW); GLUCOSE,URINE NEGATIVE (NEGATIVE); KETONES,URINE TRACE (NEGATIVE); LEUKOCYTE ESTERASE,URINE NEGATIVE (NEGATIVE); NITRITE,URINE NEGATIVE (NEGATIVE); OCCULT BLOOD,URINE NEGATIVE (NEGATIVE); PROTEIN,URINE 30 (NEGATIVE)
[2024-02-03 18:13] LABS: AMORPHOUS SEDIMENT,URINE FEW /HPF (NOT SEEN); BACTERIA,URINE FEW /HPF (0-FEW/HPF); EPITHELIAL CELLS,URINE RARE /HPF (NOT SEEN); MUCUS,URINE FEW /LPF (NOT SEEN); RBC,URINE 0-5 /HPF (0-5); WBC,URINE 0-5 /HPF (0-5/HPF)
[2024-02-03] MEDS: Acetaminophen 325 MG Tab PO PRN (18:13)
[2024-02-03] MEDS: Thiamine 100 MG Tab PO SCH (18:14)
[2024-02-03] MEDS: Gabapentin 300 MG Cap PO SCH (18:15)
[2024-02-03] MEDS: Formoterol/Mometasone 200-5 MCG 8.8 GM Inhaler IH SCH (18:15)
[2024-02-03] MEDS: Pantoprazole 40 MG Vial IVPUSH SCH (18:17)
[2024-02-03] MEDS: Non-Formulary Medication 1 Each (Gabapentin 600 MG Tablet) PO SCH (18:33)
[2024-02-03] MEDS: Non-Formulary Medication 1 Each (Fluticasone/Salmeterol [Advair 250-50] 14 PUFF/INHALER Di INH SCH (18:33)
[2024-02-03] MEDS: guaiFENesin 600 MG Tab.ER PO SCH (20:29)
[2024-02-03] MEDS: atorvaSTATin 20 MG Tab PO SCH (20:29)
[2024-02-03] MEDS ORDERED: LACTOSE REDUCED FOOD PO SCH (21:00)
[2024-02-03] MEDS: Sodium Chloride 0.9% 500 ML IV SCH (22:11)
[2024-02-03 22:20] LABS: BASOPHILS PERCENT AUTO 0.1 % (0.0-1.0); EOSINOPHILS PERCENT AUTO 0.1 % (1.0-3.0); HEMATOCRIT 32.4 % (40.0-54.0); HEMOGLOBIN 10.6 g/dL (14.0-18.0); LYMPHOCYTES PERCENT AUTO 9.4 % (20.5-50.1); MEAN CORPUSCULAR HEMOGLOBIN 34.5 pg (27.0-34.0); MEAN CORPUSCULAR HGB CONC 32.7 g/dL (33.0-35.0); MEAN CORPUSCULAR VOLUME 105.5 fL (80-100); MONOCYTES PERCENT AUTO 9.2 % (2-8); NEUTROPHILS PERCENT AUTO 81.2 % (42.2-75.2); PLATELET COUNT,PLT 181 10^3/uL (150-450); RED BLOOD CELL COUNT 3.07 10^6/uL (4.6-6.2); WHITE BLOOD CELL COUNT,WBC 13.1 10^3/uL (5.0-10.0)
[2024-02-04 06:24] LABS: BASOPHILS PERCENT AUTO 0.1 % (0.0-1.0); EOSINOPHILS PERCENT AUTO 0.2 % (1.0-3.0); HEMATOCRIT 33.1 % (40.0-54.0); HEMOGLOBIN 10.7 g/dL (14.0-18.0); LYMPHOCYTES PERCENT AUTO 11.5 % (20.5-50.1); MEAN CORPUSCULAR HEMOGLOBIN 34.5 pg (27.0-34.0); MEAN CORPUSCULAR HGB CONC 32.3 g/dL (33.0-35.0); MEAN CORPUSCULAR VOLUME 106.8 fL (80-100); MONOCYTES PERCENT AUTO 7.1 % (2-8); NEUTROPHILS PERCENT AUTO 81.1 % (42.2-75.2); PLATELET COUNT,PLT 175 10^3/uL (150-450); WHITE BLOOD CELL COUNT,WBC 10.8 10^3/uL (5.0-10.0)
[2024-02-04 06:41] LABS: ALBUMIN 2.6 g/dL (3.4-5.0); ANION GAP 8.1 mEq/L (7-13); BILIRUBIN TOTAL 0.3 mg/dL (0.2-1.0); BUN/CREATININE RATIO 22.8 (No establ ref range); C-REACTIVE PROTEIN 19.53 ng/dL (<=0.50); CALCIUM 7.7 mg/dL (8.5-10.1); CREATININE 0.92 mg/dL (0.70-1.30); EST CRCL DRUG DOSING (CG) 50.54 mL/min; MAGNESIUM 1.9 mg/dL (1.8-2.4); POTASSIUM,K 4.1 mmol/L (3.5-5.1); PROTEIN TOTAL,TP 5.7 g/dL (6.4-8.2)
[2024-02-04 06:47] LABS: A/G RATIO 0.84
[2024-02-04] MEDS: Enoxaparin 40 MG/0.4 ML Syringe SUBCUT SCH (08:31)
[2024-02-04] MEDS: Polyethylene Glycol 3350 Powder 17 GM Packet PO SCH (08:33)
[2024-02-04] MEDS: Saccharomyces Boulardii (Probiotic) 250 MG Cap PO SCH (08:34)
[2024-02-04] MEDS: Aspirin 81 MG Tab.EC PO SCH (08:34)
[2024-02-04] MEDS: Famotidine 20 MG Tab PO SCH (08:34)
[2024-02-04] MEDS: Folic Acid 1 MG Tab PO SCH (08:35)
[2024-02-04] MEDS: Megestrol Susp 40 MG/ML 10 ML UD Cup PO SCH (08:35)
[2024-02-04] MEDS: Polyvinyl Alcohol 1.4% Ophth Soln 15 ML Bottle EYEBOTH SCH (08:35)
[2024-02-04] MEDS: Nicotine 21 MG/24 Hr Patch TRDERM SCH (08:37)
[2024-02-04] MEDS ORDERED: LACTOBACILLUS ACIDOPHILUS PO SCH (09:00)
[2024-02-04] MEDS ORDERED: Famotidine 20 MG Tab PO SCH (09:00)
[2024-02-04] MEDS ORDERED: Enoxaparin 30 MG/0.3 ML Syringe SUBCUT SCH (09:00)
[2024-02-04] MEDS: Azithromycin 500 MG in Sodium Chloride 0.9% 250 ML IV SCH (13:28)
[2024-02-04] MEDS: cefTRIAXone 2 GM Vial IVPUSH SCH (13:29)
[2024-02-05 06:31] LABS: BASOPHILS PERCENT AUTO 0.1 % (0.0-1.0); EOSINOPHILS PERCENT AUTO 1.1 % (1.0-3.0); HEMATOCRIT 33.4 % (40.0-54.0); HEMOGLOBIN 10.8 g/dL (14.0-18.0); LYMPHOCYTES PERCENT AUTO 12.3 % (20.5-50.1); MEAN CORPUSCULAR HEMOGLOBIN 34.5 pg (27.0-34.0); MEAN CORPUSCULAR HGB CONC 32.3 g/dL (33.0-35.0); MEAN CORPUSCULAR VOLUME 106.7 fL (80-100); MONOCYTES PERCENT AUTO 7.5 % (2-8); PLATELET COUNT,PLT 170 10^3/uL (150-450); RED BLOOD CELL COUNT 3.13 10^6/uL (4.6-6.2); WHITE BLOOD CELL COUNT,WBC 8.8 10^3/uL (5.0-10.0)
[2024-02-05] MEDS: Budesonide 0.5 MG/2 ML Neb Susp INH SCH (06:38)
[2024-02-05 06:47] LABS: CALCIUM 7.8 mg/dL (8.5-10.1); CREATININE 0.97 mg/dL (0.70-1.30); EST CRCL DRUG DOSING (CG) 47.94 mL/min; MAGNESIUM 1.8 mg/dL (1.8-2.4)
[2024-02-05] MEDS: LORazepam 0.5 MG Tab PO PRN (08:38)
[2024-02-05] MEDS: Benzonatate 100 MG Cap PO PRN (09:41)
[2024-02-06 06:27] LABS: ANION GAP 11.1 mEq/L (7-13); CREATININE 0.8 mg/dL (0.70-1.30); EST CRCL DRUG DOSING (CG) 58.12 mL/min; MAGNESIUM 1.8 mg/dL (1.8-2.4); POTASSIUM,K 4.1 mmol/L (3.5-5.1)
[2024-02-06 06:31] LABS: BASOPHILS PERCENT AUTO 0.3 % (0.0-1.0); HEMATOCRIT 36.9 % (40.0-54.0); HEMOGLOBIN 11.8 g/dL (14.0-18.0); LYMPHOCYTES PERCENT AUTO 16.5 % (20.5-50.1); MEAN CORPUSCULAR VOLUME 106.3 fL (80-100); MONOCYTES PERCENT AUTO 10.4 % (2-8); NEUTROPHILS PERCENT AUTO 70.8 % (42.2-75.2); PLATELET COUNT,PLT 190 10^3/uL (150-450); RED BLOOD CELL COUNT 3.47 10^6/uL (4.6-6.2); WHITE BLOOD CELL COUNT,WBC 7.4 10^3/uL (5.0-10.0)
[2024-02-07 07:53] VITALS: BP 151/67; PULSE 96
[2024-02-07] MEDS: Azithromycin 250 MG Tab PO ONE (10:24)
== END 2024-02-07 11:30 | disposition other institution (70) | DRG 189 ==
LOC: DL.ED 11:32 → DL.MS 13:00
PROVIDERS: ADMIT Emergency Medicine; ATTEND Internal Medicine
DX: J96.01 Acute respiratory failure with hypoxia (principal); J96.21 Acute and chronic respiratory failure with hypoxia; J44.1 Chronic obstructive pulmonary disease with (acute) exacerbation; E44.0 Moderate protein-calorie malnutrition; E87.20 Acidosis, unspecified; I24.89 Other forms of acute ischemic heart disease; Z68.1 Body mass index [BMI] 19.9 or less, adult; Z66 Do not resuscitate; H91.90 Unspecified hearing loss, unspecified ear; H54.7 Unspecified visual loss; E78.00 Pure hypercholesterolemia, unspecified; I10 Essential (primary) hypertension; K59.09 Other constipation; K52.9 Noninfective gastroenteritis and colitis, unspecified; K21.9 Gastro-esophageal reflux disease without esophagitis; F17.210 Nicotine dependence, cigarettes, uncomplicated; D72.829 Elevated white blood cell count, unspecified; R73.9 Hyperglycemia, unspecified; Z85.118 Personal history of other malignant neoplasm of bronchus and lung; Z79.82 Long term (current) use of aspirin; Z79.899 Other long term (current) drug therapy; Z79.51 Long term (current) use of inhaled steroids; Z98.890 Other specified postprocedural states; Z98.41 Cataract extraction status, right eye; Z98.42 Cataract extraction status, left eye; Z99.81 Dependence on supplemental oxygen
CPT/HCPCS: 0241U; 36415; 71046; 80048; 80053; 81001; 82803; 82947; 83605; 83735; 83880; 84484; 85025; 86140; 87040; 87070; 87205; 93005; 93010; 96365; 96375; 97161; 97165; 99285; 87077; 87186; A9270-GY; C9113; J0456; J0696; J1650; J3490; J7030; J7040; J7050; J7620-GY

== ENCOUNTER 2024-08-20 10:15 | Emergency (ER) | payer OTHER ==
[~2024-08-20 10:15] MED LIST: Sodium Chloride 0.9% 10 ML Syringe FLUSH PRN
[2024-08-20 10:17] LABS: HEMATOCRIT 36.6 % (40.0-54.0); HEMOGLOBIN 12.4 g/dL (14.0-18.0); MEAN CORPUSCULAR HEMOGLOBIN 36.4 pg (27.0-34.0); MEAN CORPUSCULAR HGB CONC 33.9 g/dL (33.0-35.0); MEAN CORPUSCULAR VOLUME 107.3 fL (80-100); PLATELET COUNT,PLT 254 10^3/uL (150-450); RED BLOOD CELL COUNT 3.41 10^6/uL (4.6-6.2); WHITE BLOOD CELL COUNT,WBC 7.2 10^3/uL (5.0-10.0)
[2024-08-20 10:27] VITALS: BP 158/72; PULSE 111
[2024-08-20 10:35] LABS: B-TYPE NATRIURETIC PEPTIDE,BNP 208 pg/ml (0-100)
[2024-08-20 10:42] LABS: ALANINE AMINOTRANSFERASE,ALT 27 U/L (16-63); ALBUMIN 3.4 g/dL (3.4-5.0); ALKALINE PHOSPHATASE 139 U/L (46-116); ANION GAP 15.4 mEq/L (7-13); ASPARTATE AMNIOTRANSFERASE,AST 58 U/L (15-37); BILIRUBIN TOTAL 1.1 mg/dL (0.2-1.0); BLOOD UREA NITROGEN,BUN 13 mg/dL (7-18); BUN/CREATININE RATIO 12.7 (No establ ref range); CALCIUM 8.7 mg/dL (8.5-10.1); CARBON DIOXIDE,CO2 27 mmol/L (21-32); CHLORIDE,CL 101 mmol/L (98-107); CREATININE 1.02 mg/dL (0.70-1.30); GLUCOSE RANDOM 93 mg/dL (70-99); MAGNESIUM 1.7 mg/dL (1.8-2.4); POTASSIUM,K 3.4 mmol/L (3.5-5.1); PROTEIN TOTAL,TP 6.9 g/dL (6.4-8.2); SODIUM,NA 140 mmol/L (136-145)
[2024-08-20 10:45] LABS: ESTIMATED GFR 73 mL/min (>=60)
[2024-08-20 10:48] LABS: BASOPHILS PERCENT AUTO 0.1 % (0.0-1.0); EOSINOPHILS PERCENT AUTO 1.4 % (1.0-3.0); LYMPHOCYTES PERCENT AUTO 18.9 % (20.5-50.1); MONOCYTES PERCENT AUTO 13.5 % (2-8); NEUTROPHILS PERCENT AUTO 66.1 % (42.2-75.2)
[2024-08-20 11:05] LABS: EOSINOPHILS PERCENT MAN 2 % (1-3); LYMPHOCYTES PERCENT MAN 23 % (20-50); MONOCYTES PERCENT MAN 14 % (2-8); SEG NEUTROPHILS PERCENT MAN 61 % (42-75)
[2024-08-20 13:59] LABS: FOLIC ACID > 20.0 ng/mL (8.6-58.9)
== END 2024-08-20 13:56 | disposition home or self-care (01) ==
LOC: DL.ED 10:15
DX: S09.90XA Unspecified injury of head, initial encounter (principal); E83.42 Hypomagnesemia; R79.89 Other specified abnormal findings of blood chemistry; I10 Essential (primary) hypertension; E78.00 Pure hypercholesterolemia, unspecified; J44.9 Chronic obstructive pulmonary disease, unspecified; Z79.899 Other long term (current) drug therapy; Z79.82 Long term (current) use of aspirin; W19.XXXA Unspecified fall, initial encounter
CPT/HCPCS: 36415; 70450; 71045; 72125; 80053; 82607; 82746; 83735; 83880; 84484; 85025; 85610; 87804; 93005; 93010; 99284; U0002

== ENCOUNTER 2024-08-22 09:27 | Inpatient (IN) | payer OTHER ==
[2024-08-22 09:29] LABS: BASOPHILS PERCENT AUTO 0.1 % (0.0-1.0); HEMATOCRIT 35.7 % (40.0-54.0); HEMOGLOBIN 12.3 g/dL (14.0-18.0); LYMPHOCYTES PERCENT AUTO 3.8 % (20.5-50.1); MEAN CORPUSCULAR HEMOGLOBIN 36.7 pg (27.0-34.0); MEAN CORPUSCULAR HGB CONC 34.5 g/dL (33.0-35.0); MEAN CORPUSCULAR VOLUME 106.6 fL (80-100); MONOCYTES PERCENT AUTO 7.3 % (2-8); NEUTROPHILS PERCENT AUTO 88.8 % (42.2-75.2); PLATELET COUNT,PLT 231 10^3/uL (150-450); RED BLOOD CELL COUNT 3.35 10^6/uL (4.6-6.2); WHITE BLOOD CELL COUNT,WBC 13.6 10^3/uL (5.0-10.0)
[2024-08-22] MEDS: Albuterol/Ipratropium 3.0-0.5 MG/3 ML Neb Soln NEB ONE (09:30)
[2024-08-22] MEDS: Sodium Chloride 0.9% 10 ML Syringe FLUSH PRN (09:31)
[2024-08-22 09:44] LABS: PROTHROMBIN TIME 10.1 SEC (9.0-12.0)
[2024-08-22 09:51] LABS: A/G RATIO 0.89; ALANINE AMINOTRANSFERASE,ALT 28 U/L (16-63); ALBUMIN 3.3 g/dL (3.4-5.0); ALKALINE PHOSPHATASE 144 U/L (46-116); ANION GAP 19.2 mEq/L (7-13); ASPARTATE AMNIOTRANSFERASE,AST 49 U/L (15-37); BILIRUBIN TOTAL 1.1 mg/dL (0.2-1.0); BLOOD UREA NITROGEN,BUN 13 mg/dL (7-18); BUN/CREATININE RATIO 8.5 (No establ ref range); CALCIUM 8.6 mg/dL (8.5-10.1); CARBON DIOXIDE,CO2 26 mmol/L (21-32); CHLORIDE,CL 101 mmol/L (98-107); CREATININE 1.53 mg/dL (0.70-1.30); EST CRCL DRUG DOSING (CG) 29.09 mL/min; ESTIMATED GFR 45 mL/min (>=60); GLUCOSE RANDOM 165 mg/dL (70-99); LIPASE 35 U/L (16-77); MAGNESIUM 1.6 mg/dL (1.8-2.4); POTASSIUM,K 3.2 mmol/L (3.5-5.1); SODIUM,NA 143 mmol/L (136-145)
[2024-08-22 09:53] LABS: ETHANOL BLOOD MEDICAL < 3 mg/dL (0)
[2024-08-22] MEDS: Sodium Chloride 0.9% 500 ML IV ONE (10:05)
[2024-08-22 10:32] LABS: APPEARANCE,URINE CLEAR (CLEAR); BILIRUBIN,URINE NEGATIVE (NEGATIVE); COLOR,URINE YELLOW (YELLOW); GLUCOSE,URINE NEGATIVE (NEGATIVE); KETONES,URINE NEGATIVE (NEGATIVE); LEUKOCYTE ESTERASE,URINE NEGATIVE (NEGATIVE); NITRITE,URINE NEGATIVE (NEGATIVE); OCCULT BLOOD,URINE NEGATIVE (NEGATIVE); PH,URINE 5.5 (5.0-9.0); PROTEIN,URINE NEGATIVE (NEGATIVE)
[2024-08-22 10:34] LABS: AMPHETAMINES,URINE NEGATIVE (NEGATIVE); BARBITURATES,URINE NEGATIVE (NEGATIVE); BENZODIAZEPINE,URINE NEGATIVE (NEGATIVE); MDMA (ECSTASY), URINE NEGATIVE (NEGATIVE); METHADONE,URINE NEGATIVE (NEGATIVE); METHAMPHETAMINES,URINE NEGATIVE (NEGATIVE); OPIATES,URINE NEGATIVE (NEGATIVE); OXYCODONE,URINE NEGATIVE (NEGATIVE); PHENCYCLIDINE,URINE NEGATIVE (NEGATIVE); TCA,URINE NEGATIVE (NEGATIVE)
[2024-08-22] MEDS: Magnesium Sulfate/Water Premix 2 GM in Premix Bag 1 BAG IV ONE (10:44)
[2024-08-22] MEDS: Potassium Chloride 10 MEQ Tab.ER PO ONE (11:15)
[2024-08-22] MEDS: Metoprolol Tartrate 5 MG/5 ML SDV IVPUSH ONE (13:19)
[2024-08-22] MEDS: Metoprolol Tartrate 5 MG/5 ML SDV ONE (16:11)
[2024-08-22] MEDS ORDERED: Naloxone 2 MG/2 ML Syringe IVPUSH PRN (16:55)
[2024-08-22] MEDS ORDERED: Acetaminophen 325 MG Tab PO PRN (16:55)
[2024-08-22] MEDS ORDERED: Albuterol/Ipratropium 3.0-0.5 MG/3 ML Neb Soln NEB PRN (16:55)
[2024-08-22] MEDS: Sodium Chloride 0.9% 1,000 ML IV SCH (17:42)
[2024-08-23 06:23] LABS: BASOPHILS PERCENT AUTO 0.1 % (0.0-1.0); EOSINOPHILS PERCENT AUTO 0.5 % (1.0-3.0); HEMATOCRIT 31.6 % (40.0-54.0); HEMOGLOBIN 10.4 g/dL (14.0-18.0); LYMPHOCYTES PERCENT AUTO 11.6 % (20.5-50.1); MEAN CORPUSCULAR HGB CONC 32.9 g/dL (33.0-35.0); MEAN CORPUSCULAR VOLUME 109.3 fL (80-100); MONOCYTES PERCENT AUTO 8.6 % (2-8); NEUTROPHILS PERCENT AUTO 79.2 % (42.2-75.2); PLATELET COUNT,PLT 203 10^3/uL (150-450); RED BLOOD CELL COUNT 2.89 10^6/uL (4.6-6.2)
[2024-08-23 06:50] LABS: ALBUMIN 2.4 g/dL (3.4-5.0); ANION GAP 14.6 mEq/L (7-13); BILIRUBIN TOTAL 0.8 mg/dL (0.2-1.0); BUN/CREATININE RATIO 14.8 (No establ ref range); CREATININE 0.88 mg/dL (0.70-1.30); EST CRCL DRUG DOSING (CG) 45.3 mL/min; MAGNESIUM 2.1 mg/dL (1.8-2.4); POTASSIUM,K 3.6 mmol/L (3.5-5.1); PROTEIN TOTAL,TP 5.6 g/dL (6.4-8.2)
[2024-08-23 06:51] LABS: A/G RATIO 0.75
[2024-08-23] MEDS ORDERED: Non-Formulary Medication 1 Each (Alendronate Sodium [Fosamax] 70 MG Tablet) PO SCH (07:15)
[2024-08-23] MEDS ORDERED: LACTOSE REDUCED FOOD PO SCH (09:00)
[2024-08-23] MEDS: Folic Acid 1 MG Tab PO SCH (09:12)
[2024-08-23] MEDS: predniSONE 5 MG Tab PO SCH (09:13)
[2024-08-23] MEDS: Gabapentin 300 MG Cap PO SCH (09:14)
[2024-08-23] MEDS: guaiFENesin 600 MG Tab.ER PO SCH (09:15)
[2024-08-23] MEDS: Acetaminophen 325 MG Tab PO SCH ×2 (09:16→14:11)
[2024-08-23] MEDS: Budesonide 0.5 MG/2 ML Neb Susp NEB SCH (09:22)
[2024-08-23] MEDS: Loratadine 10 MG Tab PO SCH (10:46)
[2024-08-23] MEDS: Furosemide 20 MG Tab PO SCH (10:47)
[2024-08-23] MEDS: Saccharomyces Boulardii (Probiotic) 250 MG Cap PO SCH (10:47)
[2024-08-23] MEDS: Nicotine 21 MG/24 Hr Patch TRDERM SCH (10:47)
[2024-08-23] MEDS: Polyethylene Glycol 3350 Powder 17 GM Packet PO SCH (10:48)
[2024-08-23] MEDS: Polyvinyl Alcohol 1.4% Ophth Soln 15 ML Bottle EYEBOTH SCH (10:48)
[2024-08-23] MEDS: Megestrol Susp 40 MG/ML 10 ML UD Cup PO SCH (10:48)
[2024-08-23] MEDS: Famotidine 20 MG Tab PO SCH (10:48)
[2024-08-23] MEDS: Albuterol/Ipratropium 3.0-0.5 MG/3 ML Neb Soln NEB SCH (14:00)
[2024-08-23] MEDS: atorvaSTATin 20 MG Tab PO SCH (23:07)
[2024-08-23] MEDS: Lidocaine 5% 700 MG Patch TOP SCH ×2 (23:07→23:10)
[2024-08-23] MEDS: Check Patch TRDERM SCH (23:08)
[2024-08-24] MEDS: Acetaminophen/HYDROcodone 325-10 MG Tab PO PRN (05:25)
[2024-08-24] MEDS: guaiFENesin 600 MG Tab.ER PO SCH (11:17)
[2024-08-24] MEDS: Azithromycin 500 MG in Sodium Chloride 0.9% 250 ML IV ONE (11:42)
[2024-08-24] MEDS: predniSONE 20 MG Tab PO SCH (11:44)
[2024-08-24] MEDS: HYDROmorphone 0.5 MG/0.5 ML Syringe IVPUSH PRN (13:21)
[2024-08-25 07:14] LABS: ALBUMIN 2.6 g/dL (3.4-5.0); ANION GAP 13.3 mEq/L (7-13); BILIRUBIN TOTAL 0.9 mg/dL (0.2-1.0); BUN/CREATININE RATIO 10.8 (No establ ref range); CALCIUM 8.8 mg/dL (8.5-10.1); CREATININE 0.74 mg/dL (0.70-1.30); EST CRCL DRUG DOSING (CG) 53.87 mL/min; MAGNESIUM 1.6 mg/dL (1.8-2.4); POTASSIUM,K 3.3 mmol/L (3.5-5.1); PROTEIN TOTAL,TP 6.3 g/dL (6.4-8.2)
[2024-08-25 07:17] LABS: A/G RATIO 0.7
[2024-08-25] MEDS: Tiotropium Bromide 4 GM Inhalation Spray (2.5mcg/1 dose; 10 doses) INH SCH (08:56)
[2024-08-25] MEDS: Magnesium Sulfate/Water Premix 2 GM in Premix Bag 1 BAG IV ONE (10:01)
[2024-08-25] MEDS: Azithromycin 250 MG Tab PO SCH (10:05)
[2024-08-25] MEDS: Potassium Chloride 10 MEQ Tab.ER PO ONE (12:17)
[2024-08-25] MEDS: Albuterol/Ipratropium 3.0-0.5 MG/3 ML Neb Soln NEB PRN (13:24)
[2024-08-26] MEDS: Ziprasidone Mesylate 20 MG Vial IM ONE (02:33)
[2024-08-26] MEDS: Ziprasidone Mesylate 20 MG Vial ONE (03:44)
[2024-08-26] MEDS: Ondansetron 4 MG/2 ML SDV IVPUSH PRN (11:05)
[2024-08-26] MEDS ORDERED: Ziprasidone Mesylate 20 MG Vial IM PRN (19:08)
[2024-08-26] MEDS: Melatonin 3 MG Tab PO PRN (19:53)
[2024-08-27 07:33] LABS: A/G RATIO 0.72; ALBUMIN 2.6 g/dL (3.4-5.0); ANION GAP 13.7 mEq/L (7-13); BILIRUBIN TOTAL 0.6 mg/dL (0.2-1.0); BUN/CREATININE RATIO 27.5 (No establ ref range); CALCIUM 9.3 mg/dL (8.5-10.1); CREATININE 1.02 mg/dL (0.70-1.30); EST CRCL DRUG DOSING (CG) 39.08 mL/min; POTASSIUM,K 4.7 mmol/L (3.5-5.1); PROTEIN TOTAL,TP 6.2 g/dL (6.4-8.2)
[2024-08-28] MEDS: predniSONE 20 MG Tab PO SCH (09:55)
[2024-08-29] MEDS ORDERED: Modafinil 100 MG Tab PO SCH (06:00)
[2024-08-29] MEDS: predniSONE 10 MG Tab PO SCH (09:33)
== END 2024-08-29 10:30 | DRG 947 ==
LOC: DL.ED 09:27 → DL.MS 16:23 → DL.ED 16:23 → OBSVTOIN 08-24 12:00 → MERGE 08-24 12:00
PROVIDERS: ADMIT Internal Medicine; ATTEND Internal Medicine
DX: R53.81 Other malaise (principal); E43 Unspecified severe protein-calorie malnutrition; F05 Delirium due to known physiological condition; N17.9 Acute kidney failure, unspecified; J44.1 Chronic obstructive pulmonary disease with (acute) exacerbation; Z68.1 Body mass index [BMI] 19.9 or less, adult; I48.0 Paroxysmal atrial fibrillation; E86.0 Dehydration; H54.7 Unspecified visual loss; Z66 Do not resuscitate; I10 Essential (primary) hypertension; E78.5 Hyperlipidemia, unspecified; H91.90 Unspecified hearing loss, unspecified ear; K59.09 Other constipation; D50.9 Iron deficiency anemia, unspecified; M81.0 Age-related osteoporosis without current pathological fracture; E78.00 Pure hypercholesterolemia, unspecified; E87.6 Hypokalemia; E83.42 Hypomagnesemia; E88.09 Other disorders of plasma-protein metabolism, not elsewhere classified; D72.829 Elevated white blood cell count, unspecified; N40.0 Benign prostatic hyperplasia without lower urinary tract symptoms; R79.89 Other specified abnormal findings of blood chemistry; R26.9 Unspecified abnormalities of gait and mobility; F17.210 Nicotine dependence, cigarettes, uncomplicated; Z79.52 Long term (current) use of systemic steroids; Z98.49 Cataract extraction status, unspecified eye; Z89.021 Acquired absence of right finger(s); Z79.899 Other long term (current) drug therapy; Z98.890 Other specified postprocedural states; Z91.148 Patient's other noncompliance with medication regimen for other reason
CPT/HCPCS: 36415; 51798; 71045; 80053; 80305-QW; 80307; 81003; 82550; 83690; 83735; 84484; 85025; 85610; 93005; 93010; 94640; 94664; 96361; 96365; 96375; 99223; 99233; 99238; 99284; 99285-25; A9270-GY; G0378; J1171; J2405; J3475; J3486; J3490; J7030; J7040; J7512; J7620-GY